=== PATIENT | male | born 1985 | race Caucasian/White ===

== ENCOUNTER 2018-08-25 08:19 | Inpatient (IN) | payer OTHER ==
[2018-08-25 10:31] VITALS: BMI 31.9
--- NOTE | 2018-08-25 12:13 | HP ---
COWS - Scale Resting Pulse: 0= [place] 80 or Below Sweatin= Chills/Flushing Restless Observation: 3= Extraneous Movement Pupil Size: 1= Pupils >than Normal Bone or Joint Aches: 2= Severe Diffuse Aches Runny Nose/ Eye Tearin= Runny Nose/Eyes GI Upset > 30mins: 3= Vomiting/Diarrhea Tremor Observation: 2= Slight Tremor Visible Yawning Observation: 2= >3x During Session Anxiety or Irritability: 2=Irritable/Anxious Goose Flesh Skin: 0=Smooth Skin COWS Score: 18 CIWA Score - Admission Criteria [facility] Guidelines: Admission for Medically Managed Detox: Requires at least one of the followin. CIWA greater than 12 2. Seizures within the past 24 hours 3. Delirium tremens within the past 24 hours 4. Hallucinations within the past 24 hours 5. Acute intervention needed for co occurring medical disorder 6. Acute intervention needed for co occurring psychiatric disorder 7. Severe withdrawal that cannot be handled at a lower level of care (continued vomiting, continued diarrhea, abnormal vital signs) requiring intravenous medication and/or fluids 8. Admission ROS [facility] Chief Complaint: ii am here for detox from heroin,also on xanax prescribed,also cocaine and marijuana Allergies/Adverse Reactions: Allergies Allergy/AdvReac Type Severity Reaction Status Date / Time No Known Allergies Allergy Verified 08/25/18 10:54 History of Present Illness: this 33 years old seeking detox from heroin,xanax prescribed,also using cocaine, marijuana dependence, seeking detox,withdrawal symptom, [facility] completed anxiety and depression on med longest period of sobriety 6 months plan for care home program after detox seizure drug related last 6 months ago Exam Limitations: No Limitations - Ebola screening Have you traveled outside of the country in the last 21 days: No Have you had contact with anyone from an Ebola affected area: No Have you been sick,other than usual withdrawal symptoms: No Do you have a fever: No - Review of Systems Constitutional: Chills, Loss of Appetite, Malaise, Night Sweats, Changes in sleep, Weakness EENT: reports: Tearing, Nose Congestion Respiratory: reports: No Symptoms reported Cardiac: reports: No Symptoms Reported GI: reports: Diarrhea, Nausea, Poor Appetite, Abdominal cramping : reports: No Symptoms Reported Musculoskeletal: reports: Back Pain, Joint Pain, Muscle Pain Integumentary: reports: Dryness Neuro: reports: Headache, Tremors Endocrine: reports: No Symptoms Reported Hematology: reports: No Symptoms Reported Psychiatric: reports: No Sypmtoms Reported, Judgement Intact, Mood/Affect Appropiate, Orientated x3, Anxious, Depressed, other (insomnia) Other Systems: Reviewed and Negative Patient History - Patient Medical History Hx Anemia: No Hx Asthma: No Hx Chronic Obstructive Pulmonary Disease (COPD): No Hx Cancer: No Hx Cardiac Disorders: No Hx Congestive Heart Failure: No Hx Hypertension: No Hx Hypercholesterolemia: No Hx Pacemaker: No HX Cerebrovascular Accident: No Hx Seizures: Yes (6 mths ago drug related) Hx Dementia: No Hx Diabetes: No Hx Gastrointestinal Disorders: No Hx Liver Disease: No Hx Genitourinary Disorders: No Hx Sexually Transmitted Disorders: No Hx Renal Disease (ESRD): No Hx Thyroid Disease: No Hx Human Immunodeficiency Virus (HIV): No (last 2018 negative) Hx Hepatitis C: No Hx Depression: Yes (anxiety) Hx Suicide Attempt: No Hx Bipolar Disorder: No Hx Schizophrenia: No Other Medical History: no suicidal,no homicidal, - Patient Surgical History Past Surgical History: No - PPD History Previous Implant?: Yes Documented Results: Negative w/o proof Implanted On Prior [facility] Admission?: No PPD to be Administered?: Yes - Smoking Cessation Smoking history: Never smoked Have you smoked in the past 12 months: No Aproximately how many cigarettes per day: 0 Hx Chewing Tobacco Use: No - Substance & Tx. History Hx Alcohol Use: No Hx Substance Use: Yes Substance Use Type: Cocaine, Heroin, Marijuana, Tranquilizers Hx Substance Use [facility]: [facility] - Substances Abused Heroin Route: Injection Frequency: Daily Amount used: 6 BAGS Age of first use: 29 Date of Last Use: 08/24/18 Alprazolam (Xanax) Route: Oral Frequency: Daily Amount used: 4mg Age of first use: 31 Date of Last Use: 08/24/18 Cocaine Route: Smoking Frequency: 1-3 times last 30 days Amount used: 30$ Age of first use: 32 Date of Last Use: 08/24/18 Marijuana/Hashish Route: Smoking Frequency: 1-3 times last 30 days Amount used: 1 blunt Age of first use: 19 Date of Last Use: 08/24/18 Family Disease History - Family Disease History Family History: Denies Admission Physical Exam [facility] - Vital Signs Vital Signs: Vital Signs - 24 hr 08/25/18 10:24 Temperature 97.1 F L Pulse Rate 75 Respiratory 20 Rate Blood Pressure 115/76 - Physical General Appearance: Yes: Moderate Distress, Tremorous, Irritable, Anxious HEENTM: Yes: Normal ENT Inspection, DELFINA, Pharynx Normal Respiratory: Yes: Lungs Clear, Normal Breath Sounds, No Respiratory Distress Neck: Yes: Within Normal Limits, Supple, Trachea in good position Breast: Yes: Within Normal Limits Cardiology: Yes: Within Normal Limits, Regular Rhythm, Regular Rate, S1, S2 Abdominal: Yes: Normal Bowel Sounds, Non Tender, Soft Genitourinary: Yes: Within Normal Limits Back: Yes: Muscle Spasm Extremities: Yes: Tremors Neurological: Yes: draw end hand II-XII NML intact, Fully Oriented, Alert, Motor Strength 5/5 Integumentary: Yes: Dry Lymphatic: Yes: Within Normal Limits - Diagnostic (1) Opioid dependence with withdrawal Current Visit: Yes Status: Acute (2) Sedative, hypnotic or anxiolytic abuse, uncomplicated Current Visit: Yes Status: Acute (3) Cocaine abuse Current Visit: Yes Status: Acute (4) Cannabis abuse Current Visit: Yes Status: Acute (5) Insomnia secondary to depression with anxiety Current Visit: Yes Status: Acute Cleared for Admission [facility] - Detox or Rehab [facility] Level of Care: Medically Managed Detox Regimen/Protocol: Methadone [facility] Breath Alcohol Content Breath Alcohol Content: 0 Urine Drug Screen - Results Drug Screen Negative: No Urine Drug Screen Results: THC-Marijuana, MONICA-Cocaine, BZO-Benzodiazepines, OXY- Oxycodone Inpatient Rehab Admission - Rehab Decision to Admit Inpatient rehab admission?: No
[2018-08-25] MEDS ORDERED: cloNIDine HCL 0.1 MG TABLET PO PRN (12:45)
[2018-08-25] MEDS ORDERED: MAGNESIUM CITRATE 300 ML BOTTLE PO PRN (12:53)
[2018-08-25] MEDS ORDERED: MAGNESIUM HYDROX 2400MG/30ML ORAL SUSPENSION 30 ML CUP PO PRN (12:53)
[2018-08-25] MEDS ORDERED: BISMUTH SUBSALICYLATE 262 MG/15 ML BTL PO PRN (12:53)
[2018-08-25] MEDS ORDERED: IBUPROFEN 400 MG TABLET (FP) PO PRN (12:53)
[2018-08-25] MEDS ORDERED: hydrOXYzine PAMOATE 25 MG CAPSULE (FP) PO PRN (12:53)
[2018-08-25] MEDS ORDERED: MAG HYDROX/AL HYDROX/SIMETH 30 ML UNIT-DOSE CUP PO PRN (12:53)
[2018-08-25] MEDS ORDERED: MELATONIN 5 MG TABLETS PO PRN (12:53)
[2018-08-25] MEDS ORDERED: METHOCARBAMOL 500 MG TABLET PO PRN (12:53)
[2018-08-25] MEDS ORDERED: guaiFENesin 200 MG/10 ML 10 ML UNIT-DOSE CUPS PO PRN (12:53)
[2018-08-25] MEDS ORDERED: MENTHOL/PHENOL 1 EACH UD MM PRN (12:53)
[2018-08-25] MEDS ORDERED: P-EPHED 60MG/TRIPROLIDI 2.5MG TABLET PO PRN (12:53)
[2018-08-25] MEDS ORDERED: ACETAMINOPHEN 325 MG TABLET (FP) PO PRN ×2 (12:53)
[2018-08-25] MEDS ORDERED: METHADONE HCL 10 MG TABLET (FOR DETOX USE ONLY) PO ONE ×2 (14:00→23:00)
[2018-08-25] MEDS: clonazePAM 0.5 MG TABLET PO PRN (18:10)
[2018-08-25] MEDS ORDERED: THIAMINE HCL 100 MG TABLET (FP) PO SCH (22:00)
[2018-08-25] MEDS ORDERED: traZODone HCL 100 MG TABLET (FP) PO SCH (22:00)
[2018-08-26] MEDS: clonazePAM 0.5 MG TABLET PO PRN (06:37)
[2018-08-26] MEDS ORDERED: ESCITALOPRAM OXALATE 20 MG TABLET (FP) PO SCH (10:00)
[2018-08-26] MEDS ORDERED: METHADONE HCL 10 MG TABLET (FOR DETOX USE ONLY) PO ONE (10:00)
[2018-08-26] MEDS ORDERED: PRENATAL VITAMINS W/ FOLIC ACID TABLET (FP) PO SCH (10:00)
--- NOTE | 2018-08-26 11:06 | PN ---
[facility] COWS - Scale Resting Pulse: 1= [place] 81-100 Sweatin=Flushed/Facial Moisture Restless Observation: 1= Difficult to Sit Still Pupil Size: 0= Normal to Room Light Bone or Joint Aches: 2= Severe Diffuse Aches Runny Nose/ Eye Tearin= Nasal Congestion GI Upset > 30mins: 0= None Tremor Observation of Outstretched Hands: 2= Slight Tremor Visible Yawning Observation: 2= >3x During Session Anxiety or Irritability: 2=Irritable/Anxious Goose Flesh Skin: 0=Smooth Skin COWS Score: 13 [facility] Progress Note (SOAP) Subjective: agitation sweats shakes I want to see claims correspondence clerk interrupted sleep Objective: 08/26/18 11:05 Vital Signs Temperature 97.1 F L 08/26/18 09:41 Pulse Rate 91 H 08/26/18 09:41 Respiratory Rate 16 08/26/18 09:41 Blood Pressure 121/79 08/26/18 09:41 O2 Sat by Pulse Oximetry (%) labs pending [id number] ambulating no acute distress Assessment: 08/26/18 11:05 withdrawal sx Plan: continue detox increase fluids hep c ordered as per pt request
[2018-08-26] MEDS ORDERED: ALBUTEROL SO4 8 GM HFA INHALER IH PRN (11:25)
--- NOTE | 2018-08-26 11:25 | PN ---
[facility] Progress Note Note: pt was found by nursing support worker during rounds that he was unresponsive, skin dailey/ ashy. rapid response was initiated. Nursing operations staff specialist security /supervisor fur dressing are performing CPR. Narcan x2 doses .04mg IM and nasal given to pt, 911 was called. chest compression were continued. Pts color was back, with jah cheeks. Pt was awake/ alert responding to name. Pt was asked if he know what made him so lethargic but he states he didnt take anything that was not part of the regimen he is taking. Pt was sent by ambulance to nearest hospital for evaluation.
[2018-08-26 11:37] LABS: HEMATOCRIT 48.1 % (35.4-49); HEMOGLOBIN 16.6 GM/dL (11.7-16.9); MCH 31.1 pg (25.7-33.7); MCHC 34.5 g/dl (32.0-35.9); MEAN CELL VOLUME 90.3 fl (80-96); MEAN PLT VOLUME 9.8 fl (7.5-11.1); PLATELET COUNT 177 K/MM3 (134-434); RBC 5.33 M/mm3 (4.00-5.60); RDW 12.9 % (11.9-15.9); WHITE BLOOD COUNT 6.6 K/mm3 (4.0-10.0)
[2018-08-26 11:50] LABS: ALBUMIN 4.2 g/dl (3.4-5.0); ALK PHOS 109 U/L (45-117); ANION GAP 6 MMOL/L (8-16); BILIRUBIN,TOTAL 0.4 mg/dL (0.2-1); BLOOD UREA NITROGEN 11 mg/dL (7-18); CALCIUM 9.2 mg/dL (8.5-10.1); CHLORIDE 102 mmol/L (98-107); CO2 29 mmol/L (21-32); CREATININE 1.1 mg/dL (0.55-1.3); GLUCOSE,RANDOM 63 mg/dL (74-106); POTASSIUM 3.9 mmol/L (3.5-5.1); SGOT/AST 6 U/L (15-37); SGPT/ALT 18 U/L (13-61); SODIUM 137 mmol/L (136-145); TOT PROT 7.6 g/dl (6.4-8.2)
--- NOTE | 2018-08-26 12:03 | EKG ---
Test Reason : Blood Pressure : / mmHG Vent. Rate : 084 BPM Atrial Rate : 084 BPM P-R Int : 140 ms QRS Dur : 092 ms QT Int : 352 ms P-R-T Axes : 038 -02 011 degrees QTc Int : 415 ms NORMAL SINUS RHYTHM NORMAL ECG NO PREVIOUS ECGS AVAILABLE Confirmed by XIN PURVIS, DARRION ([id number]) on 08/26/2018 12:03:21 PM Referred By: Confirmed By:DARRION LAUREN MD
[2018-08-26] MEDS ORDERED: NALOXONE HCL 0.4 MG/ML VIAL IM ONE ×2 (13:00)
[2018-08-26 14:16] VITALS: BP 126/96; PULSE 96; TEMP 98.1
[2018-08-26] MEDS ORDERED: NALOXONE HCL 0.4 MG/ML VIAL IVPUSH ONE (15:44)
[2018-08-27] MEDS ORDERED: METHADONE HCL 10 MG TABLET (FOR DETOX USE ONLY) PO ONE (10:00)
[2018-08-28] MEDS ORDERED: METHADONE HCL 10 MG TABLET (FOR DETOX USE ONLY) PO ONE (10:00)
[2018-08-29] MEDS ORDERED: METHADONE HCL 5 MG TABLET (FOR DETOX USE ONLY) PO ONE (06:00)
== END 2018-08-26 13:30 | disposition short-term general hospital (02) | DRG 773 ==
LOC: YASAS 08:19 → Y6N 13:28
PROVIDERS: ADMIT Surgery; ATTEND Surgery
PROC: HZ2ZZZZ Detoxification Services for Substance Abuse Treatment (ICD-10-PCS; principal; 2018-08-25)
DX: F11.23 Opioid dependence with withdrawal (principal); F13.230 Sedative, hypnotic or anxiolytic dependence with withdrawal, uncomplicated; F14.20 Cocaine dependence, uncomplicated; F12.20 Cannabis dependence, uncomplicated; F51.05 Insomnia due to other mental disorder; F41.8 Other specified anxiety disorders; F32.9 Major depressive disorder, single episode, unspecified; Z86.69 Personal history of other diseases of the nervous system and sense organs
CPT/HCPCS: 36415; 80053; 85027; 86593; 87389; 87522; 93005; 93010

== ENCOUNTER 2018-08-26 13:50 | Inpatient (IN) | payer OTHER ==
[2018-08-26 14:05] VITALS: BMI 28.7
--- NOTE | 2018-08-26 14:27 | PDOC ---
Attending Attestation - HPI HPI: 08/26/18 15:41 The patient is a 33 yo Male with significant past medical history of IV heroin use 10 months cessation with relapse 2 days ago) who presents emergency department from [facility] by EMS after being found unresponsive and cyanotic. The patient was reportedly given Narcan and chest compressions began via use of KIRBY machine. Pt is answering questions appropriately upon arrival. - Physicial Exam PE: 08/26/18 15:40 GENERAL: The patient is in mild distress. HEAD: Normal with no signs of trauma. EYES: PERRLA, EOMI, sclera anicteric, conjunctiva clear. ENT: Ears normal, nares patent, oropharynx clear without exudates. Moist mucous membranes. NECK: Normal range of motion, supple without lymphadenopathy, JVD, or masses. LUNGS: Breath sounds equal, clear to auscultation bilaterally. No wheezes, and no crackles. HEART:(+) tachycardic, Normal rhythm, normal S1 and S2 without murmur, rub or gallop. ABDOMEN: (+) distension and diffuse tenderness. Soft, normoactive bowel sounds. No guarding, no rebound. No masses palpable. EXTREMITIES: Normal range of motion, no edema. No clubbing or cyanosis. No erythema, or tenderness. NEUROLOGICAL: Cranial nerves II through XII grossly intact. Normal speech. No focal neurological deficits. Pupils round and reactive. Answering questions appropriately MUSCULOSKELETAL: Back non-tender to palpation, no CVA tenderness SKIN: (+) multiple track cruz visualized to b/l UE. Warm, Dry, normal turgor, no rashes or lesions noted. <Maddie Jaramillo - Last Filed: 08/26/18 15:41> - Resident Resident Name: Radha Hernández - ED Attending Attestation I have performed the following: I have examined & evaluated the patient, The case was reviewed & discussed with the resident, I agree w/resident's findings & plan, Exceptions are as noted - Medical Decision Making 08/26/18 14:59 Mr Severino is 33 yo Male who presents emergency department from [facility] by EMS. Briefly patient has been in detox now 2 days. He apparently was noted to be unresponsive and cyanotic. EMS called. Patient given Narcan and presumably vitals were not obtained. Chest compressions began via use of KIRBY machine. Since then patient is awake, alert. He reports pain in his abdomen. He's noted to be tachycardic Patient is difficult access. Differential diagnosis includes but is not limited to: Cardiac contusion, DE, substance abuse, intra-abdominal pathology/bleeding Will do: Labs, CT chest abdomen pelvis, urine drug screen IV hydration Re Assess Anticipate admission 08/26/18 16:07 EKG - Afib rate of 140s-160s, axis nml, no st elevation or depression 08/26/18 16:14 Laboratory Tests 08/26/18 08/26/18 15:00 15:00 WBC 14.7 H Hgb 16.0 Hct 47.1 Plt Count 162 BUN 11 Creatinine 1.2 Creatine Kinase 132 Troponin I 0.04 TSH 1.04 Salicylates < 1.7 L Acetaminophen < 2.0 L Bedside US - No pericardial effusion, no wall motion abnormalities CT C/A/P Pending Admit to Dr Rodarte Clinical Impression: new onset Afib in the setting of chest compressions <Ciara Pinto - Last Filed: 08/29/18 12:01> Attestations - Attestations 08/26/18 15:43 Documentation prepared by Maddie Jaramillo, acting as medical billing clerk for Ciara Pinto MD <Maddie Jaramillo - Last Filed: 08/26/18 15:41>
[2018-08-26] MEDS ORDERED: SODIUM CHLORIDE 1,000 ML IV STA (14:29)
[2018-08-26 15:24] LABS: BASO % 0.2 % (0-2.0); EOS % 1.2 % (0-4.5); HEMATOCRIT 47.1 % (35.4-49); LYMPH % 10.5 % (8-40); MCH 31.5 pg (25.7-33.7); MCHC 33.9 g/dl (32.0-35.9); MEAN CELL VOLUME 92.9 fl (80-96); MEAN PLT VOLUME 9.4 fl (7.5-11.1); MONO % 7.5 % (3.8-10.2); NEUT % 80.6 % (42.8-82.8); PLATELET COUNT 162 K/MM3 (134-434); RBC 5.07 M/mm3 (4.00-5.60); RDW 12.9 % (11.9-15.9); WHITE BLOOD COUNT 14.7 K/mm3 (4.0-10.0)
--- NOTE | 2018-08-26 15:44 | PDOC ---
History of Present Illness - General Chief Complaint: Overdose Stated Complaint: Overdose Time Seen by Provider: 08/26/18 14:26 History Source: Patient - History of Present Illness Initial Comments: 08/26/18 15:05 *history obtained by note from [facility] and charge nurse Pt is a 33yo M with PMH of Heroin use, Xanax use, Cocaine, marijuana use BIBA from [facility] after being found unresponsive and cyanotic. Chest compressions were initiated and pt was given Narcan. At presentation pt is alert and oriented x3. Pt does not recall what happened. He states he went to bed and woke up people surrounding him. Says he is on Methadone and Klonopin. Was using IV heroin for 2 years but quit 6 months ago. Pt states he relapsed 2 days ago, used heroin and 6mg Xanax and checked into detox. No history of cardiac problems or arrhythmias. Mainly complaining of nausea, diffuse abdominal pain and chest pain with sob. Collateral information obtained from nursing staff here: nurse at [facility] went to check in on patient at 1pm, found him cyanotic and could not feel a carotid pulse. compressions started. Fire department placed KIRBY. EMS arrived and placed EJ. PT given 0.4mg Narcan x2 and woke up. Per EMS, compressions for 15 minutes. PMH: see hpi PSH: none Allergies: nkda Past History - Past Medical History Allergies/Adverse Reactions: Allergies Allergy/AdvReac Type Severity Reaction Status Date / Time No Known Allergies Allergy Verified 08/25/18 10:54 Home Medications: Ambulatory Orders Escitalopram Oxalate [Lexapro -] 20 mg PO DAILY 08/25/18 traZODone HCL [Trazodone HCl] 100 mg PO HS 08/25/18 Anemia: No Asthma: No Cancer: No Cardiac Disorders: No CVA: No COPD: No CHF: No Dementia: No Diabetes: No GI Disorders: No Disorders: No HTN: No Hypercholesterolemia: No Kidney Stones: No Liver Disease: No Seizures: Yes (6 mths ago drug related) Thyroid Disease: No - Reproductive History Testicular Surgery: No - Suicide/Smoking/Psychosocial Hx Smoking History: Never smoked Have you smoked in the past 12 months: No Number of Cigarettes Smoked Daily: 0 Information on smoking cessation initiated: No Hx Alcohol Use: No Drug/Substance Use Hx: Yes Substance Use Type: Cocaine, Heroin, Marijuana, Tranquilizers Hx Substance Use Treatment: Yes ([facility] 07/28 completed) Review of Systems - Review of Systems Constitutional: No: Chills, Fever HEENTM: No: Eye Pain, Blurred Vision, Double Vision Respiratory: Yes: Shortness of Breath. No: Cough, Hemoptysis Cardiac (ROS): Yes: Chest Pain. No: Lightheadedness, Palpitations, Syncope ABD/GI: Yes: Nausea, Abdominal cramping. No: Constipated, Diarrhea, Vomiting : No: Burning, Dysuria Musculoskeletal: No: Back Pain, Joint Pain, Neck Pain Integumentary: No: Symptoms Reported Neurological: No: Headache, Numbness, Tingling, Tremors *Physical Exam - Vital Signs Last Vital Signs Temp Pulse Resp BP Pulse Ox 98 F 144 H 20 117/81 94 L 08/26/18 14:02 08/26/18 14:02 08/26/18 14:02 08/26/18 14:02 08/26/18 14:02 - Physical Exam General Appearance: Yes: Disheveled, Mild Distress HEENT: positive: EOMI, DELFINA, Normal ENT Inspection Neck: positive: Trachea midline, Supple. negative: Lymphadenopathy (R), Lymphadenopathy (L) Respiratory/Chest: positive: Normal Breath Sounds, Other (poor inspiratory effort). negative: Respiratory Distress, Crackles, Rales, Rhonchi, Wheezing Vascular Pulses: Carotid (R): 2+, Carotid (L): 2+, Dorsalis-Pedis (R): 2+, Doralis-Pedis (L): 2+ Gastrointestinal/Abdominal: positive: Normal Bowel Sounds, Tender (diffuse tendnerness), Soft, Distended. negative: Guarding, Rebound, Hernia, Mass Musculoskeletal: negative: CVA Tenderness Extremity: positive: Normal Capillary Refill, Normal Inspection, Pelvis Stable. negative: Swelling, Calf Tenderness Integumentary: positive: Normal Color, Dry, Warm, Other (old track cruz in arms bilaterally, no splinter hemorrhage) Neurologic: positive: sheather II-XII NML intact, Fully Oriented, Alert, Normal Mood/ Affect, Normal Response, Motor Strength 5/5 Moderate Sedation - Procedure Monitoring Vital Signs: Procedure Monitoring Vital Signs Temperature 98 F 08/26/18 14:02 Pulse Rate 144 H 08/26/18 14:02 Respiratory Rate 20 08/26/18 14:02 Blood Pressure 117/81 08/26/18 14:02 O2 Sat by Pulse Oximetry (%) 94 L 08/26/18 14:02 ED Treatment Course - LABORATORY CBC & Chemistry Diagram: 08/26/18 15:00 08/26/18 15:00 - RADIOLOGY Radiology Studies Ordered: Category Date Time Status ABDOMEN & PELVIS CT WITH CONTR [CT] Stat CT Scan 08/26/18 15:[address] WITH CONTRAST [CT] Stat CT Scan 08/26/18 15:02 Ordered Medical Decision Making - Medical Decision Making 08/26/18 16:06 Pt is a 33yo M with PMH of Heroin use, Xanax use, Cocaine, marijuana use BIBA from [facility] after being found unresponsive and cyanotic. Chest compressions were initiated and pt was given Narcan. At presentation pt is alert and oriented x3. Pt does not recall what happened. He states he went to bed and woke up people surrounding him. Says he is on Methadone and Klonopin. Was using IV heroin for 2 years but quit 6 months ago. Pt states he relapsed 2 days ago, used heroin and 6mg Xanax and checked into detox. No history of cardiac problems or arrhythmias. Mainly complaining of nausea, diffuse abdominal pain and chest pain with sob. Collateral information obtained from nursing staff here: nurse at [facility] went to check in on patient at 1pm, found him cyanotic and could not feel a carotid pulse. compressions started. Fire department placed KIRBY. EMS arrived and placed EJ. PT given 0.4mg Narcan x2 and woke up. Per EMS, compressions for 15 minutes. Vitals: tachycardia, saturating high 80s on RA, in mid to high 90s on NC, bp wnl. RR wnl. Afebrile (rectal 99.1) PE: tired appearing, AOx4, responding to commands. GCS 15. old track cruz on arms bilaterally ddx includes but not limited to pe, cardiac contusion, lung contusion, withdrawal, overdose, arrhythmia, endocarditis -pt started on fluids, difficult IV access. -cbc, cmp, cardiac profile, apap, asa, utox -cta, ctap labs wnl. torp 0.04 (performed within 3 hour window after CPR, could elevate) EKG- afib with rvr. previous ekg from this morning showed nsr. -consulted Dr. Yoo, agrees with ekg read of afib with rvr. start on diltiazem 10mg. CT chest shows atelectasis/scarring of R lower lobe, no pe. no pericardial effusion or pleural effusion. CTAP shows distended stomach with air and gastric contents, diffusely distended colon with fecal matter and air. Aftr diltiazem 10mg, hr decrased to 100s-120s. orderd cardiazem 60mg po. repeat ekg- afib rvr Utox positive for cocaine, bz, opiates, methadone Pt complaining of pain, will give ketamine. pt endorsed to Dr. Rodarte who originally recommended icu however after assessing pt, will admit pt to tele for new onset afib, unresponsiveness and opiate withdrawal 08/26/18 21:50 *DC/Admit/Observation/Transfer Diagnosis at time of Disposition: Opioid dependence with withdrawal, Unresponsive episode Afib Qualifiers: Atrial fibrillation type: unspecified Qualified Code(s): I48.91 - Unspecified atrial fibrillation - Discharge Dispostion Condition at time of disposition: Good Decision to Admit order: Yes - Referrals - Patient Instructions - Post Discharge Activity
[2018-08-26] MEDS ORDERED: LACTATED RINGERS SOLUTION 1000 ML INFUS.BAG IV ONE (15:55)
[2018-08-26 16:03] LABS: ALBUMIN 3.7 g/dl (3.4-5.0); ALK PHOS 94 U/L (45-117); ANION GAP 9 MMOL/L (8-16); BILIRUBIN,TOTAL 0.2 mg/dL (0.2-1); BLOOD UREA NITROGEN 11 mg/dL (7-18); CALCIUM 8.2 mg/dL (8.5-10.1); CHLORIDE 103 mmol/L (98-107); CO2 24 mmol/L (21-32); CREATININE 1.2 mg/dL (0.55-1.3); GLUCOSE,RANDOM 109 mg/dL (74-106); POTASSIUM 3.9 mmol/L (3.5-5.1); SGOT/AST 13 U/L (15-37); SGPT/ALT 22 U/L (13-61); SODIUM 136 mmol/L (136-145)
[2018-08-26 17:18] LABS: PHENCYCLIDINE,URINE NEGATIVE ng/ml (CUTOFF=25); URINE AMPHETAMINES NEGATIVE ng/ml (CUTOFF=500); URINE BARBITURATES NEGATIVE ng/ml (CUTOFF=200)
[2018-08-26] MEDS ORDERED: dilTIAZem HCL 50 MG/10 ML - 10 ML VIAL ONE (17:53)
[2018-08-26] MEDS ORDERED: dilTIAZem HCL 50 MG/10 ML - 10 ML VIAL IVPUSH ONE ×2 (17:54→18:14)
[2018-08-26] MEDS ORDERED: dilTIAZem HCL 60 MG TABLET (FP) PO ONE (18:14)
[2018-08-26] MEDS ORDERED: dilTIAZem HCL 60 MG TABLET (FP) ONE (18:18)
[2018-08-26] MEDS ORDERED: KETAMINE HCL 200 MG/20 ML VIAL IVPUSH ONE ×2 (18:22→18:25)
[2018-08-26] MEDS ORDERED: KETAMINE HCL 200 MG/20 ML VIAL ONE (18:47)
[2018-08-26 19:05] LABS: EPI CELLS 0 /HPF (FEW); HYALINE CASTS 0 /hpf (NEGATIVE); PH,URINE 5.5 (5.0-8.0); URINE APPEARANCE CLEAR; URINE BACTERIA 0 /hpf (NEGATIVE); URINE BILIRUBIN NEGATIVE (<2.0 mg/dL); URINE COLOR YELLOW; URINE GLUCOSE (UA) NEGATIVE (NEGATIVE); URINE KETONE NEGATIVE (NEGATIVE); URINE LEUK ESTERASE NEGATIVE (NEGATIVE); URINE NITRITE NEGATIVE (NEGATIVE); URINE PROTEIN NEGATIVE (NEGATIVE); URINE RBC 0 /hpf (0-3); URINE UROBILINOGEN 0.2 mg/dL (0.2-1.0); URINE WBC 0 /hpf (3-5)
[2018-08-26 19:22] LABS: COCAINE, UR POSITIVE ng/ml (CUTOFF=300); METHADONE, UR POSITIVE ng/ml (CUTOFF=300); OPIATES, URI POSITIVE ng/ml (CUTOFF=300); URINE BENZODIAZEPINES POSITIVE ng/ml (CUTOFF=200)
--- NOTE | 2018-08-26 20:18 | HP ---
Admitting History and Physical - Primary Care Physician PCP: Pauly Rodarte - Admission History of Present Illness: Pt is a 33yo M with PMH of Heroin use, Xanax use, Cocaine, marijuana use BIBA from [facility] after being found unresponsive and cyanotic. Chest compressions were initiated and pt was given Narcan. At presentation pt is alert and oriented x3. Pt does not recall what happened. He states he went to bed and woke up people surrounding him. Says he is on Methadone and Klonopin. Was using IV heroin for 2 years but quit 6 months ago. Pt states he relapsed 2 days ago, used heroin and 6mg Xanax and checked into detox. No history of cardiac problems or arrhythmias. Mainly complaining of nausea, diffuse abdominal pain and chest pain with sob. Collateral information obtained from nursing staff here: nurse at [facility] went to check in on patient at 1pm, found him cyanotic and could not feel a carotid pulse. compressions started. Fire department placed KIRBY. EMS arrived and placed EJ. PT given 0.8mg Narcan and woke up. Per EMS, compressions for 15 minutes. history taken from ER records - Past Medical History Psych: Yes: Depression - Smoking History Smoking history: Never smoked Have you smoked in the past 12 months: No Aproximately how many cigarettes per day: 0 - Alcohol/Substance Use Hx Alcohol Use: No Home Medications - Allergies Allergies/Adverse Reactions: Allergies Allergy/AdvReac Type Severity Reaction Status Date / Time No Known Allergies Allergy Verified 08/25/18 10:54 - Home Medications Home Medications: Ambulatory Orders Escitalopram Oxalate [Lexapro -] 20 mg PO DAILY 08/25/18 traZODone HCL [Trazodone HCl] 100 mg PO HS 08/25/18 Methadone [Dolophine -] 20 mg PO ASDIR 08/27/18 Physical Examination Vital Signs: Vital Signs Temperature 99.1 F 08/26/18 18:05 Pulse Rate 139 H 08/26/18 18:53 Respiratory Rate 18 08/26/18 18:53 Blood Pressure 109/66 08/26/18 18:53 O2 Sat by Pulse Oximetry (%) 98 08/26/18 18:53 Constitutional: Yes: Anxious HENT: Yes: Atraumatic Neck: Yes: Supple Cardiovascular: Yes: Regular Rate and Rhythm Respiratory: Yes: Rhonchi Gastrointestinal: Yes: Normal Bowel Sounds Extremities: Yes: WNL Neurological: Yes: Alert, Oriented Labs: CBC, BMP 08/26/18 15:00 08/26/18 15:00 Imaging - Results Chest X-ray: Report Reviewed Cat Scan: Report Reviewed Problem List - Problems (1) Cannabis abuse Code(s): F12.10 - CANNABIS ABUSE, UNCOMPLICATED (2) Cocaine abuse Code(s): F14.10 - COCAINE ABUSE, UNCOMPLICATED (3) Opioid dependence with withdrawal Code(s): F11.23 - OPIOID DEPENDENCE WITH WITHDRAWAL Assessment/Plan Laboratory Tests 08/26/18 08/26/18 08/26/18 15:00 15:00 16:00 WBC 14.7 H RBC 5.07 Hgb 16.0 Hct 47.1 MCV 92.9 MCH 31.5 MCHC 33.9 RDW 12.9 Plt Count 162 MPV 9.4 Absolute Neuts (auto) 11.8 H Neutrophils % 80.6 Lymphocytes % 10.5 Monocytes % 7.5 Eosinophils % 1.2 Basophils % 0.2 Nucleated RBC % 0 Sodium 136 Potassium 3.9 Chloride 103 Carbon Dioxide 24 Anion Gap 9 BUN 11 Creatinine 1.2 Creat Clearance w eGFR 68.90 Random Glucose 109 H Calcium 8.2 L Total Bilirubin 0.2 AST 13 L ALT 22 Alkaline Phosphatase 94 Creatine Kinase 132 Troponin I 0.04 B-Natriuretic Peptide 11.0 Total Protein 7.0 Albumin 3.7 TSH 1.04 Urine Color Urine Appearance Urine pH Ur Specific Tyner Urine Protein Urine Glucose (UA) Urine Ketones Urine Blood Urine Nitrite Urine Bilirubin Urine Urobilinogen Ur Leukocyte Esterase Urine WBC (Auto) Urine RBC (Auto) Urine Casts (Auto) U Epithel Cells (Auto) Urine Bacteria (Auto) Salicylates < 1.7 L Opiates Screen Positive A* Methadone Screen Positive A* Acetaminophen < 2.0 L Barbiturate Screen Negative Phencyclidine Screen Negative Ur Amphetamines Screen Negative MDMA (Ecstasy) Screen Negative Benzodiazepines Screen Positive A* Cocaine Screen Positive A* U Marijuana (THC) Screen Negative 08/26/18 18:50 WBC RBC Hgb Hct MCV MCH MCHC RDW Plt Count MPV Absolute Neuts (auto) Neutrophils % Lymphocytes % Monocytes % Eosinophils % Basophils % Nucleated RBC % Sodium Potassium Chloride Carbon Dioxide Anion Gap BUN Creatinine Creat Clearance w eGFR Random Glucose Calcium Total Bilirubin AST ALT Alkaline Phosphatase Creatine Kinase Troponin I B-Natriuretic Peptide Total Protein Albumin TSH Urine Color Yellow Urine Appearance Clear Urine pH 5.5 Ur Specific Tyner 1.019 Urine Protein Negative Urine Glucose (UA) Negative Urine Ketones Negative Urine Blood Negative Urine Nitrite Negative Urine Bilirubin Negative Urine Urobilinogen 0.2 Ur Leukocyte Esterase Negative Urine WBC (Auto) 0 Urine RBC (Auto) 0 Urine Casts (Auto) 0 U Epithel Cells (Auto) 0 Urine Bacteria (Auto) 0 Salicylates Opiates Screen Methadone Screen Acetaminophen Barbiturate Screen Phencyclidine Screen Ur Amphetamines Screen MDMA (Ecstasy) Screen Benzodiazepines Screen Cocaine Screen U Marijuana (THC) Screen Active Medications Generic Name Dose Route Start Last Admin Trade Name Freq PRN Reason Stop Dose Admin Sodium Chloride 1,000 mls @ 125 mls/hr 08/26/18 14:29 08/26/18 15:16 Normal Saline - IV 08/26/18 22:28 125 mls/hr ASDIR STA Administration Active Medications Generic Name Dose Route Start Last Admin Trade Name Freq PRN Reason Stop Dose Admin Acetaminophen 650 mg 08/26/18 20:23 08/27/18 08:26 Tylenol - PO 650 mg Q6H PRN Administration FEVER Aspirin 81 mg 08/27/18 16:30 08/27/18 17:27 Ecotrin - PO 81 mg DAILY SHANEKA Administration Diltiazem HCl 120 mg 08/27/18 16:30 08/27/18 17:27 Cardizem Cd - PO 120 mg DAILY SHANEKA Administration Escitalopram Oxalate 20 mg 08/27/18 19:00 Lexapro - PO DAILY SHANEKA Heparin Sodium (Porcine) 5,000 unit 08/26/18 22:00 08/27/18 09:39 Heparin - SQ 5,000 unit BID SHANEKA Administration Vancomycin HCl 1,250 mg/ 250 mls @ 166.667 mls/hr 08/27/18 17:00 08/27/18 17: 27 Dextrose IVPB 166.667 mls/hr Q24H SHANEKA Administration Protocol Piperacillin Sod/Tazobactam 50 mls @ 100 mls/hr 08/27/18 18:00 Sod 3.375 gm/ Dextrose IVPB Q8H-IV SHANEKA Protocol Methadone HCl 20 mg 08/27/18 16:15 Dolophine - PO DAILY SHANEKA Trazodone HCl 100 mg 08/27/18 22:00 Desyrel - PO HS SHANEKA
[2018-08-26] MEDS: HEPARIN NA (PORCINE) 5,000 UNITS/ML 1ML VIAL SQ SCH (22:45)
[2018-08-27] MEDS ORDERED: ACETAMINOPHEN 325 MG TABLET (FP) ONE (08:12)
[2018-08-27] MEDS: ACETAMINOPHEN 325 MG TABLET (FP) PO PRN (08:26)
[2018-08-27] MEDS: HEPARIN NA (PORCINE) 5,000 UNITS/ML 1ML VIAL SQ SCH ×2 (09:39→22:02)
--- NOTE | 2018-08-27 11:01 | EKG ---
Test Reason : Blood Pressure : / mmHG Vent. Rate : 148 BPM Atrial Rate : 166 BPM P-R Int : 000 ms QRS Dur : 086 ms QT Int : 312 ms P-R-T Axes : 000 017 019 degrees QTc Int : 489 ms ATRIAL FIBRILLATION WITH RAPID VENTRICULAR RESPONSE ABNORMAL ECG WHEN COMPARED WITH ECG OF 26-AUG-2018 10:22, ATRIAL FIBRILLATION HAS REPLACED SINUS RHYTHM VENT. RATE HAS INCREASED BY 64 BPM Confirmed by KIKI PURVIS, HARRISON ([id number]) on 08/27/2018 11:01:11 AM Referred By: Confirmed By:HARRISON SWANSON MD
--- NOTE | 2018-08-27 15:50 | EKG ---
Test Reason : Blood Pressure : / mmHG Vent. Rate : 113 BPM Atrial Rate : 105 BPM P-R Int : 000 ms QRS Dur : 080 ms QT Int : 264 ms P-R-T Axes : 000 036 018 degrees QTc Int : 362 ms ATRIAL FIBRILLATION WITH RAPID VENTRICULAR RESPONSE ABNORMAL ECG WHEN COMPARED WITH ECG OF 26-AUG-2018 14:13, NO SIGNIFICANT CHANGE WAS FOUND Confirmed by HARRISON SWANSON MD ([id number]) on 08/27/2018 3:49:56 PM Referred By: Confirmed By:HARRISON SWANSON MD
--- NOTE | 2018-08-27 16:03 | PN ---
Progress Note, Physician - Current Medication List Current Medications: Active Medications Acetaminophen (Tylenol -) 650 mg PO Q6H PRN PRN Reason: FEVER Last Admin: 08/27/18 08:26 Dose: 650 mg Heparin Sodium (Porcine) (Heparin -) 5,000 unit SQ BID SHANEKA Last Admin: 08/27/18 09:39 Dose: 5,000 unit - Objective Vital Signs: Vital Signs Temperature 98 F 08/27/18 09:58 Pulse Rate 127 H 08/27/18 08:09 Respiratory Rate 15 08/27/18 08:09 Blood Pressure 123/92 08/27/18 08:09 O2 Sat by Pulse Oximetry (%) 99 08/27/18 08:09 Constitutional: Yes: No Distress HENT: Yes: Atraumatic Neck: Yes: Supple Cardiovascular: Yes: Regular Rate and Rhythm Respiratory: Yes: CTA Bilaterally Gastrointestinal: Yes: Normal Bowel Sounds Extremities: Yes: WNL Edema: No Peripheral Pulses WNL: Yes Neurological: Yes: Alert, Oriented Labs: CBC, BMP 08/26/18 15:00 08/26/18 15:00 Problem List - Problems (1) Cannabis abuse Code(s): F12.10 - CANNABIS ABUSE, UNCOMPLICATED (2) Cocaine abuse Code(s): F14.10 - COCAINE ABUSE, UNCOMPLICATED (3) Opioid dependence with withdrawal Assessment/Plan: on methadone Code(s): F11.23 - OPIOID DEPENDENCE WITH WITHDRAWAL (4) Afib Assessment/Plan: on cardizem cardiology on board Code(s): I48.91 - UNSPECIFIED ATRIAL FIBRILLATION Qualifiers: Atrial fibrillation type: unspecified Qualified Code(s): I48.91 - Unspecified atrial fibrillation
[2018-08-27] MEDS ORDERED: METHADONE HCL 10 MG TABLET PO SCH (16:15)
--- NOTE | 2018-08-27 16:16 | CON.CARD ---
Consult Consult Specialty:: cardiology Referred by:: ER Reason for Consultation:: afib with rvr - History of Present Illness Chief Complaint: unresponsive from rehab requiring cpr and narcan History of Present Illness: 33 year old man with pmh polysubstance abuse, heroin, cocaine, marijuana, xanax found unresponsive at [facility] rehab yesterday cpr was started and pt given narcan with recovery of mental status to baseline in ER. in ER pt found to be in newly diagnosed Afib with RVR. pt seen and examined today, walking around ER in [facility]. states he is withdrawing and needs his medications. denies any cardiac history. denies having afib in the past. does note that for the past several weeks he has been noticing more fatigue with exertion. but denies any chest pain, sob, palpitations, lightheadedness, dizziness, syncope, near syncope, pnd, orthopnea, or le edema. currently reports MSK chest pain from CPR. no other symptoms currently. - History Source History Provided By: Patient, Medical Record Limitations to Obtaining History: No Limitations - Past Medical History Psych: Yes: Addictions - Alcohol/Substance Use Hx Alcohol Use: No - Smoking History Smoking history: Never smoked Have you smoked in the past 12 months: No Aproximately how many cigarettes per day: 0 - Social History Place of : [facility] History of Recent Travel: No Home Medications - Allergies Allergies/Adverse Reactions: Allergies Allergy/AdvReac Type Severity Reaction Status Date / Time No Known Allergies Allergy Verified 08/25/18 10:54 - Home Medications Home Medications: Ambulatory Orders Escitalopram Oxalate [Lexapro -] 20 mg PO DAILY 08/25/18 traZODone HCL [Trazodone HCl] 100 mg PO HS 08/25/18 Methadone [Dolophine -] 20 mg PO ASDIR 08/27/18 Family Disease History - Family Disease History Family History: Denies Review of Systems - Review of Systems Constitutional: reports: Malaise. denies: No Symptoms, Chills, Diaphoresis, Fever, Lethargy, Loss of Appetite, Night Sweats, Unintentional Wgt. Loss, Weakness, Other Eyes: denies: No Symptoms, Blind Spots, Blurred Vision, Double Vision, Eye Pain , Floaters, Photophobia, Recent Change in Vision, Other HENT: denies: No Symptoms, Difficult Swallowing, Ear Discharge, Ear Pain, Epistaxis, Gingival Bleeding, Hearing Loss, Mouth Swelling, Nasal Congestion, Ocular Prosthesis, Throat Pain, Toothache, Ringing in Ears, Other Neck: denies: No Symptoms, Decreased ROM, Lumps, Pain on Movement, Stiffness, Swollen Glands, Tenderness, Other Cardiovascular: denies: No Symptoms, Chest Pain, Edema, Palpitations, Shortness of Breath, Other Respiratory: denies: No Symptoms, Cough, Exercise Intolerance, Hemoptysis, Orthopnea, PND, Snoring, SOB, SOB on Exertion, Wheezing, Other Gastrointestinal: denies: No Symptoms, Abdominal Pain, Bloating, Constipation, Diarrhea, Dysphagia, Indigestion, Melena, Nausea, Rectal Bleeding, Vomiting, Vomiting Blood, Other Genitourinary: denies: No Symptoms, Burning, Discharge, Dysuria, Flank Pain, Frequency, Hematuria, Incontinence, Lesions, Menses, Pain, Testicular Mass, Testicular Pain, Testicular Swelling, Urgency, Vaginal Bleeding, Other Breasts: denies: No Symptoms Reported, See HPI, Breast Implants, Discharge from Nipple, Lumps, Pain, Skin Changes, Other Musculoskeletal: denies: No Symptoms, Back Pain, Crepitus, Decreased ROM, Extremity Pain, Joint Pain, Joint Swelling, Muscle Pain, Muscle Cramps, Muscle Weakness, Other Integumentary: denies: No Symptoms, Blister, Bruising, Change in Color, Eczema, Erythema, Incision, Lesions, Lump, Pallor, Pruritis, Rash, Wound, Other Neurological: denies: No Symptoms, Change in LOC, Change in Speech, Confusion, Dizziness, Headache, Incoordination, Numbness, Parasthesia, Pre-Existing Deficit , Seizure, Syncope, Tremors, Unsteady Gait, Weakness, Other Endocrine: denies: No Symptoms, Excessive Sweating, Flushing, Increased Hunger, Increased Thirst, Intolerance to Cold, Intolerance to Heat, Unexplained Weight Gain, Unexplained Weight Loss, Other Hematology/Lymphatic: denies: No Symptoms, Easily Bruised, Excessive Bleeding, Swollen Glands, Other Psychiatric: denies: No Symptoms, Altered Sleep Pattern, Anxiety, Depression, Hallucinations, Panic, Paranoia, Suicidal, Other Vital Signs: Vital Signs Temperature 98 F 08/27/18 09:58 Pulse Rate 127 H 08/27/18 08:09 Respiratory Rate 15 08/27/18 08:09 Blood Pressure 123/92 08/27/18 08:09 O2 Sat by Pulse Oximetry (%) 99 08/27/18 08:09 Constitutional: Yes: No Distress, Calm Eyes: Yes: Conjunctiva Clear, EOM Intact HENT: Yes: Atraumatic, Normocephalic Neck: Yes: Supple, Trachea Midline Respiratory: Yes: Regular, CTA Bilaterally. No: Rales, Rhonchi, SOB, Wheezes Gastrointestinal: Yes: Normal Bowel Sounds, Soft. No: Distention, Tenderness Cardiovascular: Yes: Pulse Irregular. No: Regular Rate and Rhythm, Bradycardia , Tachycardia, Gallop, Rub, Varicosities JVD: No Carotid Bruit: No PMI: Non-Displaced Heart Sounds: Yes: S1, S2. No: Split S2, S3, S4, Clicks, Gallop, Rub, Bruit Murmur: No: Systolic Murmur, Diastolic Murmur Extremities: Yes: WNL Edema: No Peripheral Pulses WNL: Yes Neurological: Yes: Alert, Oriented Psychiatric: Yes: Alert, Oriented - Other Data Labs, Other Data: CBC, BMP 08/26/18 15:00 08/26/18 15:00 ekg 08/27/18 Imaging - Results Chest X-ray: Report Reviewed, Image Reviewed Assessment/Plan 33 year old man with pmh polysubstance abuse, heroin, cocaine, marijuana, xanax found unresponsive at [facility] rehab yesterday cpr was started and pt given narcan with recovery of mental status to baseline in ER. in ER pt found to be in newly diagnosed Afib with RVR. currently walking around ER in [facility]. states he is withdrawing and needs his medications. denies any cardiac history. denies having afib in the past. does note that for the past several weeks he has been noticing more fatigue with exertion. but denies any chest pain, sob, palpitations, lightheadedness, dizziness, syncope, near syncope, pnd, orthopnea, or le edema. currently reports MSK chest pain from CPR. no other symptoms currently. Afib with RVR-newly diagnosed, paroxsymal -initial ekg was sinus -ekg 08/27/18 showed afib with RVR -pt not currently on tele -on exam still in afib HR currently adequate but recorded HR's with vital signs are elevated -also noted to have fever this am and pt reports feeling that he is withdrawing from his drugs -CHADS score 0 does not require full AC -can start ASA 81mg daily -will start Diltiazem CD 120mg daily for HR control -repeat EKG -drug withdrawal treatment and fever treatment as these will also increase HR -recommend outpatient fup for further management of afib including further event monitoring
--- NOTE | 2018-08-27 16:21 | CON.ID ---
Consult Consult Specialty:: infectious diseases Referred by:: Reason for Consultation:: drug abuse,resp failure cynatoic - History of Present Illness Chief Complaint: unresposive History of Present Illness: 33yo M with PMH of Heroin use, Xanax use, Cocaine, marijuana use BIBA from [facility] after being found unresponsive and cyanotic. Chest compressions were initiated and pt was given Narcan. At presentation pt is alert and oriented x3. Pt does not recall what happened. He states he went to bed and woke up people surrounding him. Says he is on Methadone and Klonopin. Was using IV heroin for 2 years but quit 6 months ago. Pt states he relapsed 2 days ago, used heroin and 6mg Xanax and checked into detox. No history of cardiac problems or arrhythmias. Mainly complaining of nausea, diffuse abdominal pain and chest pain with sob. Collateral information obtained from nursing staff here: nurse at [facility] went to check in on patient at 1pm, found him cyanotic and could not feel a carotid pulse. compressions started. Fire department placed KIRBY. EMS arrived and placed EJ. PT given 0.8mg Narcan and woke up. Per EMS, compressions for 15 minutes. the above was his history patient currently comfortable and awake and alert - History Source History Provided By: Patient Limitations to Obtaining History: No Limitations - Alcohol/Substance Use Hx Alcohol Use: No - Smoking History Smoking history: Never smoked Have you smoked in the past 12 months: No Aproximately how many cigarettes per day: 0 Home Medications - Allergies Allergies/Adverse Reactions: Allergies Allergy/AdvReac Type Severity Reaction Status Date / Time No Known Allergies Allergy Verified 08/25/18 10:54 - Home Medications Home Medications: Ambulatory Orders Escitalopram Oxalate [Lexapro -] 20 mg PO DAILY 08/25/18 traZODone HCL [Trazodone HCl] 100 mg PO HS 08/25/18 Methadone [Dolophine -] 20 mg PO ASDIR 08/27/18 Review of Systems - Review of Systems Constitutional: reports: No Symptoms Eyes: reports: No Symptoms HENT: reports: No Symptoms Neck: reports: No Symptoms Cardiovascular: reports: No Symptoms Respiratory: reports: No Symptoms Gastrointestinal: reports: No Symptoms Genitourinary: reports: No Symptoms Musculoskeletal: reports: No Symptoms Integumentary: reports: Lesions, Wound, Other Neurological: reports: No Symptoms Endocrine: reports: No Symptoms Hematology/Lymphatic: reports: No Symptoms Psychiatric: reports: No Symptoms Physical Exam Vital Signs: Vital Signs Temperature 98 F 08/27/18 09:58 Pulse Rate 127 H 08/27/18 08:09 Respiratory Rate 15 08/27/18 08:09 Blood Pressure 123/92 08/27/18 08:09 O2 Sat by Pulse Oximetry (%) 99 08/27/18 08:09 Constitutional: Yes: No Distress, Calm Cardiovascular: Yes: Regular Rate and Rhythm Respiratory: Yes: Regular, CTA Bilaterally Gastrointestinal: Yes: Normal Bowel Sounds, Soft Musculoskeletal: Yes: WNL Extremities: Yes: Erythema, Other Wound/Incision: Yes: Other Neurological: Yes: Alert, Oriented Psychiatric: Yes: Alert, Oriented Labs: CBC, BMP 08/26/18 15:00 08/26/18 15:00 Imaging - Results Chest X-ray: Report Reviewed, Image Reviewed Cat Scan: Report Reviewed, Image Reviewed Assessment/Plan Problem List - Problems (1) Cannabis abuse Code(s): F12.10 - CANNABIS ABUSE, UNCOMPLICATED (2) Cocaine abuse Code(s): F14.10 - COCAINE ABUSE, UNCOMPLICATED (3) Opioid dependence with withdrawal Code(s): F11.23 - OPIOID DEPENDENCE WITH WITHDRAWAL 4)ams plan will start patient on abx blood cx ordered
[2018-08-27] MEDS ORDERED: ASPIRIN COATED 81 MG TABLET.EC ONE (17:17)
[2018-08-27] MEDS ORDERED: dilTIAZem HCL 60 MG TABLET (FP) ONE (17:18)
[2018-08-27] MEDS: ASPIRIN COATED 81 MG TABLET.EC PO SCH (17:27)
[2018-08-27] MEDS: VANCOMYCIN HCL 1,250 MG in DEXTROSE 5%-WATER - 250 ML IVPB SCH (17:27)
[2018-08-27] MEDS ORDERED: METHADONE HCL 10 MG TABLET PO ONE (19:15)
[2018-08-27] MEDS ORDERED: DEXTROSE 5%-WATER - 50 ML IVPB ONE (20:22)
[2018-08-27] MEDS ORDERED: PIPERACILLIN/TAZOBACTAM 3.375 GM VIAL IVPB ONE (20:22)
[2018-08-27] MEDS: ESCITALOPRAM OXALATE 20 MG TABLET (FP) PO SCH (20:25)
[2018-08-27] MEDS: PIPERACILLIN/TAZOB 3.375 GM 3.375 GM in DEXTROSE 5%-WATER - 50 ML IVPB SCH (20:25)
[2018-08-27] MEDS: traZODone HCL 50 MG TABLET (FP) PO SCH (22:02)
[2018-08-28] MEDS ORDERED: PIPERACILLIN/TAZOBACTAM 3.375 GM VIAL IVPB ONE ×3 (01:16→17:22)
[2018-08-28] MEDS ORDERED: DEXTROSE 5%-WATER - 50 ML IVPB ONE ×3 (01:16→17:22)
[2018-08-28] MEDS: PIPERACILLIN/TAZOB 3.375 GM 3.375 GM in DEXTROSE 5%-WATER - 50 ML IVPB SCH ×3 (01:44→17:25)
[2018-08-28] MEDS ORDERED: METHADONE HCL 10 MG TABLET PO ONE (09:15)
[2018-08-28] MEDS: ASPIRIN COATED 81 MG TABLET.EC PO SCH (11:30)
[2018-08-28] MEDS: ESCITALOPRAM OXALATE 20 MG TABLET (FP) PO SCH (11:30)
[2018-08-28] MEDS: HEPARIN NA (PORCINE) 5,000 UNITS/ML 1ML VIAL SQ SCH ×2 (11:31→21:42)
--- NOTE | 2018-08-28 14:13 | PN ---
Progress Note, Physician History of Present Illness: patient stable doing well no issues blood cx awaited - Current Medication List Current Medications: Active Medications Acetaminophen (Tylenol -) 650 mg PO Q6H PRN PRN Reason: FEVER Last Admin: 08/27/18 08:26 Dose: 650 mg Aspirin (Ecotrin -) 81 mg PO DAILY [facility] Last Admin: 08/28/18 11:30 Dose: 81 mg Diltiazem HCl (Cardizem Cd -) 120 mg PO DAILY [facility] Last Admin: 08/28/18 11:34 Dose: Not Given Escitalopram Oxalate (Lexapro -) 20 mg PO DAILY [facility] Last Admin: 08/28/18 11:30 Dose: 20 mg Heparin Sodium (Porcine) (Heparin -) 5,000 unit SQ BID [facility] Last Admin: 08/28/18 11:31 Dose: Not Given Vancomycin HCl 1,250 mg/ (Dextrose) 250 mls @ 166.667 mls/hr IVPB Q24H [facility]; Protocol Last Admin: 08/27/18 17:27 Dose: 166.667 mls/hr Piperacillin Sod/Tazobactam (Sod 3.375 gm/ Dextrose) 50 mls @ 100 mls/hr IVPB Q8H-IV [facility]; Protocol Last Admin: 08/28/18 11:32 Dose: 100 mls/hr Methadone HCl (Dolophine -) 5 mg PO ONCE ONE Stop: 08/29/18 10:01 Trazodone HCl (Desyrel -) 100 mg PO HS [facility] Last Admin: 08/27/18 22:02 Dose: 100 mg - Objective Vital Signs: Vital Signs Temperature 98.3 F 08/28/18 06:20 Pulse Rate 82 08/28/18 06:20 Respiratory Rate 18 08/28/18 06:20 Blood Pressure 114/86 08/28/18 06:20 O2 Sat by Pulse Oximetry (%) 95 08/27/18 21:00 Constitutional: Yes: No Distress, Calm Cardiovascular: Yes: Regular Rate and Rhythm Respiratory: Yes: Regular, CTA Bilaterally Gastrointestinal: Yes: Normal Bowel Sounds, Soft Musculoskeletal: Yes: WNL Extremities: Yes: Other (multiple needle cruz on the ext) Neurological: Yes: Alert, Oriented Labs: CBC, BMP 08/26/18 15:00 08/26/18 15:00 Assessment/Plan Problem List - Problems (1) Cannabis abuse Code(s): F12.10 - CANNABIS ABUSE, UNCOMPLICATED (2) Cocaine abuse Code(s): F14.10 - COCAINE ABUSE, UNCOMPLICATED (3) Opioid dependence with withdrawal Code(s): F11.23 - OPIOID DEPENDENCE WITH WITHDRAWAL 4)ams 5 leukocytosis plan continue abx if the blood cx are negative will stop abx rest ct current mgmt patient stable
--- NOTE | 2018-08-28 16:07 | PN ---
Progress Note, Physician - Current Medication List Current Medications: Active Medications Acetaminophen (Tylenol -) 650 mg PO Q6H PRN PRN Reason: FEVER Last Admin: 08/27/18 08:26 Dose: 650 mg Aspirin (Ecotrin -) [address] [facility] Last Admin: 08/28/18 11:30 Dose: 81 mg Diltiazem HCl (Cardizem Cd -) [address] [facility] Last Admin: 08/28/18 11:34 Dose: Not Given Escitalopram Oxalate (Lexapro -) [address] [facility] Last Admin: 08/28/18 11:30 Dose: 20 mg Heparin Sodium (Porcine) (Heparin -) 5,[address] [facility] Last Admin: 08/28/18 11:31 Dose: Not Given Vancomycin HCl 1,250 mg/ (Dextrose) 250 mls @ 166.667 mls/hr IVPB Q24H [facility]; Protocol Last Admin: 08/27/18 17:27 Dose: 166.667 mls/hr Piperacillin Sod/Tazobactam (Sod 3.375 gm/ Dextrose) 50 mls @ 100 mls/hr IVPB Q8H-IV [facility]; Protocol Last Admin: 08/28/18 11:32 Dose: 100 mls/hr Methadone HCl (Dolophine -) 5 mg PO ONCE ONE Stop: 08/29/18 10:01 Trazodone HCl (Desyrel -) [address] [facility] Last Admin: 08/27/18 22:02 Dose: 100 mg - Objective Vital Signs: Vital Signs Temperature 98 F 08/28/18 14:15 Pulse Rate 85 08/28/18 14:15 Respiratory Rate 18 08/28/18 14:15 Blood Pressure 115/84 08/28/18 14:15 O2 Sat by Pulse Oximetry (%) 95 08/28/18 09:02 Labs: CBC, BMP 08/26/18 15:00 08/26/18 15:00 Assessment/Plan 33 year old man with pmh polysubstance abuse, heroin, cocaine, marijuana, xanax found unresponsive at [facility] rehab yesterday cpr was started and pt given narcan with recovery of mental status to baseline in ER. in ER pt found to be in newly diagnosed Afib with RVR. currently walking around ER in [facility]. states he is withdrawing and needs his medications. denies any cardiac history. denies having afib in the past. does note that for the past several weeks he has been noticing more fatigue with exertion. but denies any chest pain, sob, palpitations, lightheadedness, dizziness, syncope, near syncope, pnd, orthopnea, or le edema. currently reports MSK chest pain from CPR. no other symptoms currently. Afib with RVR-newly diagnosed, paroxsymal -pt back in NSR since this am and currently NSR on exam (not currently on tele) -check EKG to document NSR -initial ekg was sinus -ekg 08/27/18 showed afib with RVR -pt not currently on tele -CHADS score 0 does not require full AC -cont ASA 81mg daily -cont Diltiazem CD 120mg daily for suppression of AFib until outpatient re- evaluation when can consider to stop it -drug withdrawal treatment and fever treatment as these will also precipitate AFib episodes -recommend outpatient fup for further management of afib including further event monitoring No additional inpatient cardiac work up needed at this time. Can dc tele. Please call with any additional questions.
[2018-08-28] MEDS: VANCOMYCIN HCL 1,250 MG in DEXTROSE 5%-WATER - 250 ML IVPB SCH (17:25)
--- NOTE | 2018-08-28 17:49 | PN ---
Progress Note, Physician - Current Medication List Current Medications: Active Medications Acetaminophen (Tylenol -) 650 mg PO Q6H PRN PRN Reason: FEVER Last Admin: 08/27/18 08:26 Dose: 650 mg Aspirin (Ecotrin -) 81 mg PO DAILY [facility] Last Admin: 08/28/18 11:30 Dose: 81 mg Diltiazem HCl (Cardizem Cd -) 120 mg PO DAILY [facility] Last Admin: 08/28/18 11:34 Dose: Not Given Escitalopram Oxalate (Lexapro -) 20 mg PO DAILY [facility] Last Admin: 08/28/18 11:30 Dose: 20 mg Heparin Sodium (Porcine) (Heparin -) 5,000 unit SQ BID [facility] Last Admin: 08/28/18 11:31 Dose: Not Given Vancomycin HCl 1,250 mg/ (Dextrose) 250 mls @ 166.667 mls/hr IVPB Q24H [facility]; Protocol Last Admin: 08/28/18 17:25 Dose: 166.667 mls/hr Piperacillin Sod/Tazobactam (Sod 3.375 gm/ Dextrose) 50 mls @ 100 mls/hr IVPB Q8H-IV [facility]; Protocol Last Admin: 08/28/18 17:25 Dose: 100 mls/hr Methadone HCl (Dolophine -) 5 mg PO ONCE ONE Stop: 08/29/18 10:01 Trazodone HCl (Desyrel -) 100 mg PO HS [facility] Last Admin: 08/27/18 22:02 Dose: 100 mg - Objective Vital Signs: Vital Signs Temperature 98 F 08/28/18 17:09 Pulse Rate 77 08/28/18 17:09 Respiratory Rate 18 08/28/18 17:09 Blood Pressure 134/83 08/28/18 17:09 O2 Sat by Pulse Oximetry (%) 95 08/28/18 09:02 Constitutional: Yes: No Distress HENT: Yes: Atraumatic Neck: Yes: Supple Cardiovascular: Yes: Regular Rate and Rhythm Respiratory: Yes: CTA Bilaterally Gastrointestinal: Yes: Normal Bowel Sounds Extremities: Yes: WNL Edema: No Peripheral Pulses WNL: Yes Neurological: Yes: Alert, Oriented Labs: CBC, BMP 08/26/18 15:00 08/26/18 15:00 Problem List - Problems (1) Cannabis abuse Code(s): F12.10 - CANNABIS ABUSE, UNCOMPLICATED (2) Cocaine abuse Code(s): F14.10 - COCAINE ABUSE, UNCOMPLICATED (3) Opioid dependence with withdrawal Assessment/Plan: on methadone Code(s): F11.23 - OPIOID DEPENDENCE WITH WITHDRAWAL (4) Afib Assessment/Plan: on cardizem cardiology on board Code(s): I48.91 - UNSPECIFIED ATRIAL FIBRILLATION Qualifiers: Atrial fibrillation type: unspecified Qualified Code(s): I48.91 - Unspecified atrial fibrillation
--- NOTE | 2018-08-28 18:30 | DS ---
Physical Examination Vital Signs: Vital Signs Temperature 98 F 08/28/18 17:09 Pulse Rate 77 08/28/18 17:09 Respiratory Rate 18 08/28/18 17:09 Blood Pressure 134/83 08/28/18 17:09 O2 Sat by Pulse Oximetry (%) 95 08/28/18 09:02 Constitutional: Yes: No Distress HENT: Yes: Atraumatic Neck: Yes: Supple Cardiovascular: Yes: Regular Rate and Rhythm Respiratory: Yes: CTA Bilaterally Gastrointestinal: Yes: Normal Bowel Sounds Extremities: Yes: WNL Edema: No Neurological: Yes: Alert, Oriented Labs: CBC, BMP 08/26/18 15:00 08/26/18 15:00 Discharge Summary Reason For Visit: UNRESPONSIVENESS OPIOID DEPENDENCE WITH WITHDRAWAL Current Active Problems Afib (Acute) Opioid dependence with withdrawal (Acute) Unresponsive episode (Acute) Condition: Good - Instructions - Home Medications Comprehensive Discharge Medication List: Ambulatory Orders Escitalopram Oxalate [Lexapro -] 20 mg PO DAILY 08/25/18 traZODone HCL [Trazodone HCl] 100 mg PO HS 08/25/18 Methadone [Dolophine -] 20 mg PO ASDIR 08/27/18 Diltiazem Cd [Cardizem Cd -] 120 mg PO DAILY #30 cap.cd.24h 08/28/18 [facility] d/w dr pelaez
--- NOTE | 2018-08-28 18:38 | PN ---
"S Progress Note (SOAP) Subjective: 33 y.o. male w/ opioid dependence , transferred from [facility] after episode of unresponsiveness , pt reported he used opioid via inhalation prior to going to sleep in the morning of 08/26 , found by staff unresponsive and cyanotic , Narcan administered , CPR by EMS, brought to ED , found to be in A -fib current meds as below. Currently reports anxiety , intermittent chest discomfort. Blood cultures pending . Active Medications Acetaminophen (Tylenol -) 650 mg PO Q6H PRN PRN Reason: FEVER Last Admin: 08/27/18 08:26 Dose: 650 mg Aspirin (Ecotrin -) 81 mg PO DAILY [facility] Last Admin: 08/28/18 11:30 Dose: 81 mg Diltiazem HCl (Cardizem Cd -) 120 mg PO DAILY [facility] Last Admin: 08/28/18 11:34 Dose: Not Given Escitalopram Oxalate (Lexapro -) 20 mg PO DAILY [facility] Last Admin: 08/28/18 11:30 Dose: 20 mg Heparin Sodium (Porcine) (Heparin -) 5,000 unit SQ BID [facility] Last Admin: 08/28/18 11:31 Dose: Not Given Vancomycin HCl 1,250 mg/ (Dextrose) 250 mls @ 166.667 mls/hr IVPB Q24H [facility]; Protocol Last Admin: 08/28/18 17:25 Dose: 166.667 mls/hr Piperacillin Sod/Tazobactam (Sod 3.375 gm/ Dextrose) 50 mls @ 100 mls/hr IVPB Q8H-IV [facility]; Protocol Last Admin: 08/28/18 17:25 Dose: 100 mls/hr Methadone HCl (Dolophine -) 5 mg PO ONCE ONE Stop: 08/29/18 10:01 Trazodone HCl (Desyrel -) 100 mg PO HS [facility] Last Admin: 08/27/18 22:02 Dose: 100 mg Search Terms: anju severino, 1985 Search Date: 08/28/2018 07:02:23 PM The Drug Utilization Report below displays all of the controlled substance prescriptions, if any, that your patient has filled in the last twelve months. The information displayed on this report is compiled from pharmacy submissions to the Department, and accurately reflects the information as submitted by the pharmacies. This report was requested by: Bhavana Palomino | Reference #: [id number] Others' Prescriptions Patient Name: Anju Severino Date: 1985 Address: [address] [place] [address] Sex: Male Rx Written Rx Dispensed Drug Quantity Days Supply Prescriber Name 08/20/2018 08/20/2018 alprazolam 2 mg tablet 60 30 Benavides, Fuentes Langley MD 07/17/2018 07/17/2018 alprazolam 2 mg tablet 60 30 Benavides, Fuentes Langley MD 06/16/2018 06/16/2018 alprazolam 2 mg tablet 60 30 Benavides, Fuentes Langley MD 04/28/2018 05/07/2018 alprazolam 2 mg tablet 60 30 Benavides, Fuentes Langley MD 03/19/2018 03/19/2018 alprazolam 2 mg tablet 60 30 Benavides, Fuentes Langley MD 02/13/2018 02/13/2018 alprazolam 2 mg tablet 60 30 Benavides, Fuentes Langley MD 12/19/2017 12/19/2017 alprazolam 2 mg tablet 60 30 Benavides, Fuentes Langley MD 11/21/2017 11/21/2017 alprazolam 2 mg tablet 60 30 Benavides, Fuentes Langley MD 11/17/2017 11/17/2017 alprazolam 1 mg tablet 20 5 EdmondCaden MD 10/21/2017 10/21/2017 alprazolam 2 mg tablet 60 30 Benavides, Fuentes Langley MD 09/22/2017 09/22/2017 alprazolam 2 mg tablet 60 30 Benavides, Fuentes Langley MD Patient Name: Anju Severino Date: 1985 Address: [address] [place] [address] Sex: Male Rx Written Rx Dispensed Drug Quantity Days Supply Prescriber Name 12/09/2017 12/11/2017 alprazolam 2 mg tablet 16 8 Arlyn Barlow Objective: wnwd , resting in bed comfortably resp : no distress noted heent : NCAT EOMI ext : track cruz , full ROM Neuro : AAOx 3 , nl affect , no tremors CBC, BMP 08/26/18 15:00 08/26/18 15:00 Assessment: opioid dependence Plan: continue detox , pt interested to transfer to rehab after detox completion d/w pt , verbalizes understanding , agreeable w/ POC."
[2018-08-28] MEDS: traZODone HCL 50 MG TABLET (FP) PO SCH (21:41)
[2018-08-28 22:16] LABS: BASO % 0.3 % (0-2.0); EOS % 4.5 % (0-4.5); HEMATOCRIT 44.2 % (35.4-49); HEMOGLOBIN 15.8 GM/dL (11.7-16.9); LYMPH % 34.4 % (8-40); MCH 31.9 pg (25.7-33.7); MCHC 35.7 g/dl (32.0-35.9); MEAN CELL VOLUME 89.2 fl (80-96); MEAN PLT VOLUME 9.5 fl (7.5-11.1); MONO % 10.8 % (3.8-10.2); PLATELET COUNT 181 K/MM3 (134-434); RBC 4.96 M/mm3 (4.00-5.60); RDW 12.9 % (11.9-15.9); WHITE BLOOD COUNT 8.9 K/mm3 (4.0-10.0)
[2018-08-28 22:47] LABS: ALBUMIN 3.6 g/dl (3.4-5.0); ALK PHOS 98 U/L (45-117); ANION GAP 9 MMOL/L (8-16); BILIRUBIN,TOTAL 0.3 mg/dL (0.2-1); BLOOD UREA NITROGEN 12 mg/dL (7-18); CALCIUM 8.2 mg/dL (8.5-10.1); CHLORIDE 97 mmol/L (98-107); CO2 29 mmol/L (21-32); CREATININE 1.2 mg/dL (0.55-1.3); GLUCOSE,RANDOM 113 mg/dL (74-106); POTASSIUM 3.9 mmol/L (3.5-5.1); SGOT/AST 17 U/L (15-37); SGPT/ALT 24 U/L (13-61); SODIUM 135 mmol/L (136-145); TOT PROT 6.9 g/dl (6.4-8.2)
[2018-08-29] MEDS ORDERED: PIPERACILLIN/TAZOBACTAM 3.375 GM VIAL IVPB ONE ×3 (01:50→14:46)
[2018-08-29] MEDS ORDERED: DEXTROSE 5%-WATER - 50 ML IVPB ONE ×3 (01:50→14:46)
[2018-08-29] MEDS: PIPERACILLIN/TAZOB 3.375 GM 3.375 GM in DEXTROSE 5%-WATER - 50 ML IVPB SCH ×2 (02:22→09:39)
[2018-08-29] MEDS: ASPIRIN COATED 81 MG TABLET.EC PO SCH (09:40)
[2018-08-29] MEDS: HEPARIN NA (PORCINE) 5,000 UNITS/ML 1ML VIAL SQ SCH ×2 (09:40→21:35)
[2018-08-29] MEDS: ESCITALOPRAM OXALATE 20 MG TABLET (FP) PO SCH (09:40)
[2018-08-29] MEDS ORDERED: METHADONE HCL 5 MG TABLET PO ONE (10:00)
[2018-08-29] MEDS ORDERED: PT OWN MED DRAWER 7, Y5N ONE (14:46)
[2018-08-29] MEDS: ACETAMINOPHEN 325 MG TABLET (FP) PO PRN (14:57)
--- NOTE | 2018-08-29 16:24 | PN ---
Progress Note, Physician History of Present Illness: stable no new issues - Current Medication List Current Medications: Active Medications Acetaminophen (Tylenol -) 650 mg PO Q6H PRN PRN Reason: FEVER Last Admin: 08/29/18 14:57 Dose: 650 mg Aspirin (Ecotrin -) 81 mg PO DAILY [facility] Last Admin: 08/29/18 09:40 Dose: 81 mg Diltiazem HCl (Cardizem Cd -) 120 mg PO DAILY [facility] Last Admin: 08/29/18 09:40 Dose: 120 mg Escitalopram Oxalate (Lexapro -) 20 mg PO DAILY [facility] Last Admin: 08/29/18 09:40 Dose: 20 mg Heparin Sodium (Porcine) (Heparin -) 5,000 unit SQ BID [facility] Last Admin: 08/29/18 09:40 Dose: 5,000 unit Vancomycin HCl 1,250 mg/ (Dextrose) 250 mls @ 166.667 mls/hr IVPB Q24H [facility]; Protocol Last Admin: 08/28/18 17:25 Dose: 166.667 mls/hr Piperacillin Sod/Tazobactam (Sod 3.375 gm/ Dextrose) 50 mls @ 100 mls/hr IVPB Q8H-IV [facility]; Protocol Last Admin: 08/29/18 09:39 Dose: 100 mls/hr Trazodone HCl (Desyrel -) 100 mg PO HS [facility] Last Admin: 08/28/18 21:41 Dose: 100 mg - Objective Vital Signs: Vital Signs Temperature 97.7 F 08/29/18 13:38 Pulse Rate 89 08/29/18 13:38 Respiratory Rate 20 08/29/18 13:38 Blood Pressure 120/74 08/29/18 13:38 O2 Sat by Pulse Oximetry (%) 98 08/29/18 09:00 Constitutional: Yes: No Distress, Calm Cardiovascular: Yes: Regular Rate and Rhythm Respiratory: Yes: Regular, CTA Bilaterally Gastrointestinal: Yes: Normal Bowel Sounds, Soft Musculoskeletal: Yes: WNL Extremities: Yes: WNL Neurological: Yes: Alert, Oriented Labs: CBC, BMP 08/28/18 21:00 08/28/18 21:00 Assessment/Plan Problem List - Problems (1) Cannabis abuse Code(s): F12.10 - CANNABIS ABUSE, UNCOMPLICATED (2) Cocaine abuse Code(s): F14.10 - COCAINE ABUSE, UNCOMPLICATED (3) Opioid dependence with withdrawal Code(s): F11.23 - OPIOID DEPENDENCE WITH WITHDRAWAL 4)ams 5 leukocytosis plan hernandez top abx and watch cx negative rest ct current mgmt patient stable
--- NOTE | 2018-08-29 16:40 | EKG ---
Test Reason : Blood Pressure : / mmHG Vent. Rate : 079 BPM Atrial Rate : 079 BPM P-R Int : 144 ms QRS Dur : 086 ms QT Int : 384 ms P-R-T Axes : 041 001 000 degrees QTc Int : 440 ms NORMAL SINUS RHYTHM NORMAL ECG WHEN COMPARED WITH ECG OF 26-AUG-2018 17:56, SINUS RHYTHM HAS REPLACED ATRIAL FIBRILLATION Confirmed by LUÍS BROWN MD ([id number]) on 08/29/2018 4:40:30 PM Referred By: MAC MCINTYRE Confirmed By:LUÍS BROWN MD
--- NOTE | 2018-08-29 18:58 | PN ---
Progress Note, Physician - Current Medication List Current Medications: Active Medications Acetaminophen (Tylenol -) 650 mg PO Q6H PRN PRN Reason: FEVER Last Admin: 08/29/18 14:57 Dose: 650 mg Aspirin (Ecotrin -) 81 mg PO DAILY [facility] Last Admin: 08/29/18 09:40 Dose: 81 mg Diltiazem HCl (Cardizem Cd -) 120 mg PO DAILY [facility] Last Admin: 08/29/18 09:40 Dose: 120 mg Escitalopram Oxalate (Lexapro -) 20 mg PO DAILY [facility] Last Admin: 08/29/18 09:40 Dose: 20 mg Heparin Sodium (Porcine) (Heparin -) 5,000 unit SQ BID [facility] Last Admin: 08/29/18 09:40 Dose: 5,000 unit Trazodone HCl (Desyrel -) 100 mg PO HS [facility] Last Admin: 08/28/18 21:41 Dose: 100 mg - Objective Vital Signs: Vital Signs Temperature 98.5 F 08/29/18 18:08 Pulse Rate 76 08/29/18 18:08 Respiratory Rate 20 08/29/18 18:08 Blood Pressure 124/80 08/29/18 18:08 O2 Sat by Pulse Oximetry (%) 95 08/29/18 18:08 Constitutional: Yes: No Distress HENT: Yes: Atraumatic Neck: Yes: Supple Cardiovascular: Yes: Regular Rate and Rhythm Respiratory: Yes: CTA Bilaterally Gastrointestinal: Yes: Normal Bowel Sounds Extremities: Yes: WNL Edema: No Peripheral Pulses WNL: Yes Neurological: Yes: Alert, Oriented Labs: CBC, BMP 08/28/18 21:00 08/28/18 21:00 Problem List - Problems (1) Cannabis abuse Code(s): F12.10 - CANNABIS ABUSE, UNCOMPLICATED (2) Cocaine abuse Code(s): F14.10 - COCAINE ABUSE, UNCOMPLICATED (3) Opioid dependence with withdrawal Assessment/Plan: on methadone Code(s): F11.23 - OPIOID DEPENDENCE WITH WITHDRAWAL (4) Afib Assessment/Plan: on cardizem cardiology on board Code(s): I48.91 - UNSPECIFIED ATRIAL FIBRILLATION Qualifiers: Atrial fibrillation type: unspecified Qualified Code(s): I48.91 - Unspecified atrial fibrillation
[2018-08-29] MEDS: traZODone HCL 50 MG TABLET (FP) PO SCH (21:35)
[2018-08-30] MEDS: ASPIRIN COATED 81 MG TABLET.EC PO SCH (09:36)
[2018-08-30] MEDS: HEPARIN NA (PORCINE) 5,000 UNITS/ML 1ML VIAL SQ SCH ×2 (09:36→22:33)
[2018-08-30] MEDS: ESCITALOPRAM OXALATE 20 MG TABLET (FP) PO SCH (09:36)
--- NOTE | 2018-08-30 13:47 | PN ---
Progress Note, Physician History of Present Illness: stable no issues - Current Medication List Current Medications: Active Medications Acetaminophen (Tylenol -) 650 mg PO Q6H PRN PRN Reason: FEVER Last Admin: 08/29/18 14:57 Dose: 650 mg Aspirin (Ecotrin -) 81 mg PO DAILY [facility] Last Admin: 08/30/18 09:36 Dose: 81 mg Diltiazem HCl (Cardizem Cd -) 120 mg PO DAILY [facility] Last Admin: 08/30/18 09:36 Dose: 120 mg Escitalopram Oxalate (Lexapro -) 20 mg PO DAILY [facility] Last Admin: 08/30/18 09:36 Dose: 20 mg Heparin Sodium (Porcine) (Heparin -) 5,000 unit SQ BID [facility] Last Admin: 08/30/18 09:36 Dose: 5,000 unit Trazodone HCl (Desyrel -) 100 mg PO HS [facility] Last Admin: 08/29/18 21:35 Dose: 100 mg - Objective Vital Signs: Vital Signs Temperature 97.9 F 08/30/18 02:54 Pulse Rate 63 08/30/18 02:54 Respiratory Rate 18 08/30/18 02:54 Blood Pressure 117/60 08/30/18 02:54 O2 Sat by Pulse Oximetry (%) 93 L 08/30/18 09:00 Constitutional: Yes: No Distress, Calm Cardiovascular: Yes: S1, S2 Respiratory: Yes: Regular, CTA Bilaterally Gastrointestinal: Yes: Normal Bowel Sounds, Soft Musculoskeletal: Yes: WNL Extremities: Yes: WNL Neurological: Yes: Alert, Oriented Labs: CBC, BMP 08/28/18 21:00 08/28/18 21:00 Assessment/Plan Problem List - Problems (1) Cannabis abuse Code(s): F12.10 - CANNABIS ABUSE, UNCOMPLICATED (2) Cocaine abuse Code(s): F14.10 - COCAINE ABUSE, UNCOMPLICATED (3) Opioid dependence with withdrawal Code(s): F11.23 - OPIOID DEPENDENCE WITH WITHDRAWAL 4)ams 5 leukocytosis plan stable no issues
--- NOTE | 2018-08-30 18:29 | PN ---
Progress Note, Physician - Current Medication List Current Medications: Active Medications Acetaminophen (Tylenol -) 650 mg PO Q6H PRN PRN Reason: FEVER Last Admin: 08/29/18 14:57 Dose: 650 mg Aspirin (Ecotrin -) 81 mg PO DAILY [facility] Last Admin: 08/30/18 09:36 Dose: 81 mg Diltiazem HCl (Cardizem Cd -) 120 mg PO DAILY [facility] Last Admin: 08/30/18 09:36 Dose: 120 mg Escitalopram Oxalate (Lexapro -) 20 mg PO DAILY [facility] Last Admin: 08/30/18 09:36 Dose: 20 mg Heparin Sodium (Porcine) (Heparin -) 5,000 unit SQ BID [facility] Last Admin: 08/30/18 09:36 Dose: 5,000 unit Trazodone HCl (Desyrel -) 100 mg PO HS [facility] Last Admin: 08/29/18 21:35 Dose: 100 mg - Objective Vital Signs: Vital Signs Temperature 97.9 F 08/30/18 15:39 Pulse Rate 92 H 08/30/18 14:43 Respiratory Rate 17 08/30/18 14:43 Blood Pressure 123/65 08/30/18 14:43 O2 Sat by Pulse Oximetry (%) 93 L 08/30/18 09:00 Constitutional: Yes: No Distress HENT: Yes: Atraumatic Neck: Yes: Supple Cardiovascular: Yes: Regular Rate and Rhythm Respiratory: Yes: CTA Bilaterally Gastrointestinal: Yes: Normal Bowel Sounds Extremities: Yes: WNL Edema: No Peripheral Pulses WNL: Yes Neurological: Yes: Alert, Oriented Labs: CBC, BMP 08/28/18 21:00 08/28/18 21:00 Problem List - Problems (1) Cannabis abuse Code(s): F12.10 - CANNABIS ABUSE, UNCOMPLICATED (2) Cocaine abuse Code(s): F14.10 - COCAINE ABUSE, UNCOMPLICATED (3) Opioid dependence with withdrawal Assessment/Plan: on methadone DC TO [facility] IN AM DR ELLYN BHAT Code(s): F11.23 - OPIOID DEPENDENCE WITH WITHDRAWAL (4) Afib Assessment/Plan: on cardizem cardiology on board Code(s): I48.91 - UNSPECIFIED ATRIAL FIBRILLATION Qualifiers: Atrial fibrillation type: unspecified Qualified Code(s): I48.91 - Unspecified atrial fibrillation
[2018-08-30] MEDS: traZODone HCL 50 MG TABLET (FP) PO SCH (22:32)
[2018-08-31 06:13] VITALS: BP 101/63; PULSE 67; TEMP 97.9
[2018-08-31] MEDS: HEPARIN NA (PORCINE) 5,000 UNITS/ML 1ML VIAL SQ SCH (09:12)
[2018-08-31] MEDS: ASPIRIN COATED 81 MG TABLET.EC PO SCH (09:12)
[2018-08-31] MEDS: ESCITALOPRAM OXALATE 20 MG TABLET (FP) PO SCH (09:12)
--- NOTE | 2018-08-31 20:39 | DS ---
Physical Examination Vital Signs: Vital Signs Temperature 97.9 F 08/31/18 02:00 Pulse Rate 67 08/31/18 02:00 Respiratory Rate 18 08/31/18 02:00 Blood Pressure 101/63 08/31/18 02:00 O2 Sat by Pulse Oximetry (%) 98 08/31/18 09:00 Constitutional: Yes: No Distress HENT: Yes: Atraumatic Neck: Yes: Supple Cardiovascular: Yes: Regular Rate and Rhythm Respiratory: Yes: CTA Bilaterally Gastrointestinal: Yes: Normal Bowel Sounds Extremities: Yes: WNL Edema: No Neurological: Yes: Alert, Oriented Labs: CBC, BMP 08/28/18 21:00 08/28/18 21:00 Discharge Summary Reason For Visit: UNRESPONSIVENESS OPIOID DEPENDENCE WITH WITHDRAWAL Condition: Good - Instructions Disposition: I.P. ALCOHOL/SUBS ABUSE REHAB - Home Medications Comprehensive Discharge Medication List: Ambulatory Orders Escitalopram Oxalate [Lexapro -] 20 mg PO DAILY 08/25/18 traZODone HCL [Trazodone HCl] 100 mg PO HS 08/25/18 Diltiazem Cd [Cardizem Cd -] 120 mg PO DAILY #30 cap.cd.24h 08/28/18 dc rehab
== END 2018-08-31 11:47 | disposition other institution (70) | DRG 816 ==
LOC: JER 13:50 → JERBED 18:46 → J4W 08-27 18:19 → J5S 08-29 17:54
PROVIDERS: ADMIT Internal Medicine; ATTEND Internal Medicine
DX: T40.1X1A Poisoning by heroin, accidental (unintentional), initial encounter (principal); F11.23 Opioid dependence with withdrawal; F12.10 Cannabis abuse, uncomplicated; I48.0 Paroxysmal atrial fibrillation; F14.10 Cocaine abuse, uncomplicated; D72.829 Elevated white blood cell count, unspecified
CPT/HCPCS: 36415; 71045-TC-FY; 71275-TC; 74177-TC; 80053; 80307; 81003; 82550; 83880; 84443; 84484; 85025; 87040; 93005; 93010; 99284-25; J1644; J7030

== ENCOUNTER 2018-08-31 12:23 | Inpatient (IN) | payer OTHER ==
[2018-08-31 14:11] VITALS: BMI 32.3
--- NOTE | 2018-08-31 15:17 | HP ---
[facility] Rehab Assess/Revision - Admission History Admitted to Rehab from: Medical/Surgical Date of Admission to Rehab: 08/31/18 - Vital signs Vital Signs: Vital Signs Period Temp Pulse Resp BP Sys/Mendoza Pulse Ox Last 24 Hr 96.8 F 77 18 130/76 - Findings Detox History & Physical reviewed: Yes Concur with findings: Yes Comments/Additional Findings: this 33 years old male with opiate dependence and bezodazepam dependence,. admitted at [facility] from 08/25/18 to 08/26/18,transferred to [facility] on. 08/26/18 with alter mental status and respiratory arrest,admitted in [facility]. 08/26/18 to 08/31/18 with atrial fibrillation but converted to nsr. on diltiazem cd 120 mgs po daily,history of asthma on albuterol inhaler,. history of seizure. for rehab as protocol Inpatient Rehab Admission - Rehab Decision to Admit Inpatient rehab admission?: Yes - Initial Determination Are CD services needed?: Yes Free of communicable disease: Yes Not in need of hospitalization: Yes - Rehab Admission Criteria Previous failed treatment: Yes Poor recovery environment: Yes Comorbidities: Yes Lacks judgement: No Patient is meeting Inpatient Rehab admission criteria:: Yes
[2018-08-31] MEDS ORDERED: LOPERAMIDE HCL 2 MG CAPSULE PO PRN (15:35)
[2018-08-31] MEDS ORDERED: MAG HYDROX/AL HYDROX/SIMETH 30 ML UNIT-DOSE CUP PO PRN (15:35)
[2018-08-31] MEDS ORDERED: MENTHOL/PHENOL 1 EACH UD MM PRN (15:35)
[2018-08-31] MEDS ORDERED: MAGNESIUM HYDROX 2400MG/30ML ORAL SUSPENSION 30 ML CUP PO PRN (15:35)
[2018-08-31] MEDS ORDERED: MAGNESIUM CITRATE 300 ML BOTTLE PO PRN (15:35)
[2018-08-31] MEDS ORDERED: ACETAMINOPHEN 325 MG TABLET (FP) PO PRN (15:35)
[2018-08-31] MEDS ORDERED: guaiFENesin 200 MG/10 ML 10 ML UNIT-DOSE CUPS PO PRN (15:35)
[2018-08-31] MEDS ORDERED: P-EPHED 60MG/TRIPROLIDI 2.5MG TABLET PO PRN (15:35)
[2018-08-31] MEDS ORDERED: ALBUTEROL SO4 8 GM HFA INHALER IH PRN (15:37)
[2018-08-31] MEDS: IBUPROFEN 400 MG TABLET (FP) PO PRN (19:24)
[2018-08-31] MEDS: traZODone HCL 100 MG TABLET (FP) PO SCH (21:45)
[2018-08-31] MEDS: THIAMINE HCL 100 MG TABLET (FP) PO SCH (21:45)
[2018-08-31] MEDS ORDERED: MELATONIN 5 MG TABLETS PO PRN (22:00)
[2018-09-01] MEDS: ESCITALOPRAM OXALATE 20 MG TABLET (FP) PO SCH (10:15)
[2018-09-01] MEDS: PRENATAL VITAMINS W/ FOLIC ACID TABLET (FP) PO SCH (10:15)
[2018-09-01] MEDS: traZODone HCL 100 MG TABLET (FP) PO SCH (21:05)
[2018-09-01] MEDS: THIAMINE HCL 100 MG TABLET (FP) PO SCH (21:05)
[2018-09-02] MEDS: ESCITALOPRAM OXALATE 20 MG TABLET (FP) PO SCH (10:19)
[2018-09-02] MEDS: PRENATAL VITAMINS W/ FOLIC ACID TABLET (FP) PO SCH (10:19)
--- NOTE | 2018-09-02 10:27 | CONSULT ---
[facility] Psychiatric Consult - Data Date of interview: 09/02/18 Admission source: 6N Identifying data: Mr Severino is a 33 years old , father of a 13 years old daughter, unemployed with no source of income, homeless(in residential program at [facility]), seeking inpatient rehab treatment for opioid, cocaine, benzodiazepine and cannabis Substance Abuse History: reports history of heroin, cocaine, xanax and marijuana use. Refer to addiction counselor's summary for further information Medical History: Significant for bronchial asthma, history of seizure disorder and recent unconsciousness probably related to AFib. Psychiatric History: Reports that his first psychiatric contact was in January 2017 following the of his brother in November 2016. He was admitted to [facility] for depression and suicidal attempt by trying to jump in front of traffic. He was kept for a month and treated with Lexapro 10 mg po daily and Risperdal 2 mg po HS. After discharge, he was referred to [facility] where he is still receiving psychiatric treatment. He is currently prescribed Lexapro 20 mg po daily and Trazadone 100 mg po HS. Denies previous suicidal attempt. At present, reports feeling anxious and sleeping poorly Physical/Sexual Abuse/Trauma History: Denies history of emotional, physical or sexual abuse as well as DV relationship. No service Additional Comment: Reports history of 6 previous misdemeanor arrests on charges drug possession and trespassing. no probation currently Mental Status Exam - Mental Status Exam Alert and Oriented to: Time, Place, Person Patient Appearance: Well Groomed Mood: Anxious Affect: Appropriate Patient Behavior: Cooperative Speech Pattern: Clear Voice Loudness: Normal Thought Process: Intact Thought Disorder: Not Present Hallucinations: Denies Suicidal Ideation: Denies Homicidal Ideation: Denies Insight/Judgement: Poor Sleep: Poorly Appetite: Good Muscle strength/Tone: Normal Gait/Station: Normal Psychiatric Findings - Problem List ([place] 1, 2,3) (1) MDD (major depressive disorder) Current Visit: Yes Status: Chronic (2) Substance-induced anxiety disorder Current Visit: Yes Status: Acute (3) Substance-induced sleep disorder Current Visit: Yes Status: Acute (4) Opioid dependence Current Visit: Yes Status: Acute (5) Cocaine abuse Current Visit: No Status: Acute (6) Sedative, hypnotic or anxiolytic abuse Current Visit: Yes Status: Acute (7) Cannabis abuse Current Visit: No Status: Acute (8) Afib Current Visit: No Status: Chronic Qualifiers: Atrial fibrillation type: unspecified Qualified Code(s): I48.91 - Unspecified atrial fibrillation (9) Bronchial asthma Current Visit: Yes Status: Chronic - Initial Treatment Plan Initial Treatment Plan: 1) Continue Lexapro 20 mg po daily and Trazadone 100 mg po HS. 2) Continue inpatient rehabilitation
[2018-09-02] MEDS: traZODone HCL 100 MG TABLET (FP) PO SCH (21:07)
[2018-09-02] MEDS: THIAMINE HCL 100 MG TABLET (FP) PO SCH (21:08)
[2018-09-03] MEDS: PRENATAL VITAMINS W/ FOLIC ACID TABLET (FP) PO SCH (10:29)
[2018-09-03] MEDS: ESCITALOPRAM OXALATE 20 MG TABLET (FP) PO SCH (10:29)
[2018-09-03] MEDS: traZODone HCL 100 MG TABLET (FP) PO SCH (21:12)
[2018-09-03] MEDS: THIAMINE HCL 100 MG TABLET (FP) PO SCH (21:12)
[2018-09-04] MEDS: ESCITALOPRAM OXALATE 20 MG TABLET (FP) PO SCH (10:04)
[2018-09-04] MEDS: PRENATAL VITAMINS W/ FOLIC ACID TABLET (FP) PO SCH (10:04)
[2018-09-04] MEDS: IBUPROFEN 400 MG TABLET (FP) PO PRN (15:59)
[2018-09-04] MEDS: traZODone HCL 100 MG TABLET (FP) PO SCH (21:17)
[2018-09-04] MEDS: THIAMINE HCL 100 MG TABLET (FP) PO SCH (21:17)
[2018-09-05] MEDS: ESCITALOPRAM OXALATE 20 MG TABLET (FP) PO SCH (09:28)
[2018-09-05] MEDS: PRENATAL VITAMINS W/ FOLIC ACID TABLET (FP) PO SCH (09:28)
[2018-09-05] MEDS: THIAMINE HCL 100 MG TABLET (FP) PO SCH (22:07)
[2018-09-05] MEDS: traZODone HCL 100 MG TABLET (FP) PO SCH (22:07)
[2018-09-06] MEDS: ESCITALOPRAM OXALATE 20 MG TABLET (FP) PO SCH (09:34)
[2018-09-06] MEDS: PRENATAL VITAMINS W/ FOLIC ACID TABLET (FP) PO SCH (09:34)
[2018-09-06] MEDS: traZODone HCL 100 MG TABLET (FP) PO SCH (21:02)
[2018-09-06] MEDS: THIAMINE HCL 100 MG TABLET (FP) PO SCH (21:02)
[2018-09-06] MEDS: IBUPROFEN 400 MG TABLET (FP) PO PRN (21:03)
[2018-09-07] MEDS: ESCITALOPRAM OXALATE 20 MG TABLET (FP) PO SCH (10:03)
[2018-09-07] MEDS: PRENATAL VITAMINS W/ FOLIC ACID TABLET (FP) PO SCH (10:03)
[2018-09-07] MEDS: IBUPROFEN 400 MG TABLET (FP) PO PRN (10:04)
[2018-09-07] MEDS: hydrOXYzine PAMOATE 50 MG CAPSULE (FP) PO PRN (11:47)
[2018-09-07] MEDS: THIAMINE HCL 100 MG TABLET (FP) PO SCH (21:13)
[2018-09-07] MEDS: traZODone HCL 100 MG TABLET (FP) PO SCH (21:13)
[2018-09-08] MEDS: PRENATAL VITAMINS W/ FOLIC ACID TABLET (FP) PO SCH (11:12)
[2018-09-08] MEDS: ESCITALOPRAM OXALATE 20 MG TABLET (FP) PO SCH (11:13)
[2018-09-08] MEDS: hydrOXYzine PAMOATE 50 MG CAPSULE (FP) PO PRN (11:13)
[2018-09-08] MEDS: IBUPROFEN 400 MG TABLET (FP) PO PRN (11:13)
[2018-09-08] MEDS: traZODone HCL 100 MG TABLET (FP) PO SCH (21:24)
[2018-09-08] MEDS: THIAMINE HCL 100 MG TABLET (FP) PO SCH (21:24)
[2018-09-09] MEDS: PRENATAL VITAMINS W/ FOLIC ACID TABLET (FP) PO SCH (09:51)
[2018-09-09] MEDS: ESCITALOPRAM OXALATE 20 MG TABLET (FP) PO SCH (09:51)
--- NOTE | 2018-09-09 14:56 | PN ---
[facility] Progress Note Note: PT EXPRESSED DESIRE TO BE ON MAT WITH SUBOXONE. PT REPORTS HE WAS ON METHADONE AND DETOXED OFF WITH SUBOXONE 7 MONTHS AGO IN [facility]GRAM IN [facility]. PT HAS A HX OF HEROIN DEPENDENCE, XANAX DEPENDENCE, COCAINE USE, ASTHMA AND ANXIETY /DEPRESSION. PT HAS MHx ASTHMA AND AFIB. PT DETOXED ON [facility] AND BECAME UNRESPONSIVE 2 WEEKS AGO, WAS RESUSCITATED AND TAKEN TO THE ER, STABILIZED AND DISCHARGED TO REHAB [facility]. URINE DRUG SCREEN RESULTS Drug Screen Negative No Urine Drug Screen Results BZO-Benzodiazepines,MTD-Methadone(09/09/18) Urine Drug Screen Results THC-Marijuana,BZO-Benzodiazepines,MTD-Methadone( ON ADMISSION) TO BE EVALUATED FOR MAT.
[2018-09-09] MEDS: THIAMINE HCL 100 MG TABLET (FP) PO SCH (21:04)
[2018-09-09] MEDS: traZODone HCL 100 MG TABLET (FP) PO SCH (21:04)
[2018-09-10] MEDS: PRENATAL VITAMINS W/ FOLIC ACID TABLET (FP) PO SCH (09:44)
[2018-09-10] MEDS: ESCITALOPRAM OXALATE 20 MG TABLET (FP) PO SCH (09:45)
[2018-09-10] MEDS: traZODone HCL 100 MG TABLET (FP) PO SCH (21:09)
[2018-09-10] MEDS: THIAMINE HCL 100 MG TABLET (FP) PO SCH (21:09)
[2018-09-11] MEDS: ESCITALOPRAM OXALATE 20 MG TABLET (FP) PO SCH (09:34)
[2018-09-11] MEDS: PRENATAL VITAMINS W/ FOLIC ACID TABLET (FP) PO SCH (09:34)
[2018-09-11] MEDS: traZODone HCL 100 MG TABLET (FP) PO SCH (21:50)
[2018-09-11] MEDS: THIAMINE HCL 100 MG TABLET (FP) PO SCH (21:50)
[2018-09-12] MEDS: PRENATAL VITAMINS W/ FOLIC ACID TABLET (FP) PO SCH (09:43)
[2018-09-12] MEDS: ESCITALOPRAM OXALATE 20 MG TABLET (FP) PO SCH (09:43)
[2018-09-12] MEDS: IBUPROFEN 400 MG TABLET (FP) PO PRN (18:58)
[2018-09-12] MEDS: traZODone HCL 100 MG TABLET (FP) PO SCH (21:10)
[2018-09-12] MEDS: THIAMINE HCL 100 MG TABLET (FP) PO SCH (21:11)
[2018-09-13] MEDS: PRENATAL VITAMINS W/ FOLIC ACID TABLET (FP) PO SCH (09:43)
[2018-09-13] MEDS: ESCITALOPRAM OXALATE 20 MG TABLET (FP) PO SCH (09:43)
[2018-09-13] MEDS: IBUPROFEN 400 MG TABLET (FP) PO PRN (16:39)
[2018-09-13] MEDS: THIAMINE HCL 100 MG TABLET (FP) PO SCH (21:39)
[2018-09-13] MEDS: traZODone HCL 100 MG TABLET (FP) PO SCH (21:39)
[2018-09-14] MEDS: ESCITALOPRAM OXALATE 20 MG TABLET (FP) PO SCH (10:12)
[2018-09-14] MEDS: PRENATAL VITAMINS W/ FOLIC ACID TABLET (FP) PO SCH (10:12)
[2018-09-14] MEDS: traZODone HCL 100 MG TABLET (FP) PO SCH (21:11)
[2018-09-14] MEDS: THIAMINE HCL 100 MG TABLET (FP) PO SCH (21:11)
[2018-09-15] MEDS: PRENATAL VITAMINS W/ FOLIC ACID TABLET (FP) PO SCH (09:46)
[2018-09-15] MEDS: ESCITALOPRAM OXALATE 20 MG TABLET (FP) PO SCH (09:47)
[2018-09-15] MEDS: IBUPROFEN 400 MG TABLET (FP) PO PRN (15:50)
[2018-09-15] MEDS: THIAMINE HCL 100 MG TABLET (FP) PO SCH (21:08)
[2018-09-15] MEDS: traZODone HCL 100 MG TABLET (FP) PO SCH (21:08)
[2018-09-16] MEDS: ESCITALOPRAM OXALATE 20 MG TABLET (FP) PO SCH (09:49)
[2018-09-16] MEDS: PRENATAL VITAMINS W/ FOLIC ACID TABLET (FP) PO SCH (09:50)
[2018-09-16] MEDS: IBUPROFEN 400 MG TABLET (FP) PO PRN (20:47)
[2018-09-16] MEDS: THIAMINE HCL 100 MG TABLET (FP) PO SCH (21:04)
[2018-09-16] MEDS: traZODone HCL 100 MG TABLET (FP) PO SCH (21:04)
[2018-09-17] MEDS: PRENATAL VITAMINS W/ FOLIC ACID TABLET (FP) PO SCH (10:30)
[2018-09-17] MEDS: ESCITALOPRAM OXALATE 20 MG TABLET (FP) PO SCH (10:32)
[2018-09-17] MEDS: traZODone HCL 100 MG TABLET (FP) PO SCH (21:10)
[2018-09-17] MEDS: THIAMINE HCL 100 MG TABLET (FP) PO SCH (21:10)
[2018-09-18] MEDS: IBUPROFEN 400 MG TABLET (FP) PO PRN (09:37)
[2018-09-18] MEDS: PRENATAL VITAMINS W/ FOLIC ACID TABLET (FP) PO SCH (09:37)
[2018-09-18] MEDS: ESCITALOPRAM OXALATE 20 MG TABLET (FP) PO SCH (09:39)
[2018-09-18] MEDS ORDERED: BUPRENORPHINE/NALOXONE 2 MG/0.5 MG FILM PACKET SL ONE (10:56)
[2018-09-18] MEDS ORDERED: hydrOXYzine PAMOATE 25 MG CAPSULE (FP) PO PRN (10:57)
--- NOTE | 2018-09-18 10:58 | PN ---
S Progress Note Note: THIS PEGGER MET WITH PATIENT THIS MORNING TO DISCUSS MAT OPTIONS. PT IS VERY ADAMANT ON MAT-SUBOXONE, NALTREXONE TABS AND VIVITROL BUT C/O WITHDRAWAL SX AND NEED FOR MORE XANAX INSTEAD. PT WAS REMINDED THE DANGERS OF M[facility] USE OF BENZOS, AND HEROIN AND ALCOHOL DEPENDENCE. MEANWHILE PT'S COUNSELOR,NIC IS WORKING WITH PT FOR APPROPRIATE REFERRAL SITE THAT WILL MEET PATIENT'S NEED. DISCUSSED PT'S REQUEST FOR LOW DOSE SUBOXONE TO HELP HIM WITH RESIDUAL WITHDRAWAL SYMPTOMS OF HEROIN DISCOMFORT WHILE IN REHAB. Vital Signs (72 hours) 09/16/18 09/16/18 09/16/18 00:30 03:30 06:42 Temperature Pulse Rate Respiratory 18 18 18 Rate Blood Pressure 09/16/18 09/17/18 09/17/18 10:00 00:30 03:30 Temperature Pulse Rate 98 H Respiratory 18 18 Rate Blood Pressure 107/73 09/17/18 09/17/18 09/18/18 07:12 10:00 00:30 Temperature 97.9 F Pulse Rate 71 75 Respiratory 18 18 Rate Blood Pressure 111/68 108/76 09/18/18 09/18/18 09/18/18 03:30 06:54 10:00 Temperature Pulse Rate 79 Respiratory 18 18 Rate Blood Pressure 114/70 W/S PLAN:SUBOXONE 2 MG/0.5 MG SL DAILY X 3 DAYS BEGINNING 09/19/18, FIRST DOSE GIVEN. TO RE-EVALUATE PT ON Friday09/21/18
[2018-09-18] MEDS: THIAMINE HCL 100 MG TABLET (FP) PO SCH (21:11)
[2018-09-18] MEDS: traZODone HCL 100 MG TABLET (FP) PO SCH (21:11)
[2018-09-19] MEDS: PRENATAL VITAMINS W/ FOLIC ACID TABLET (FP) PO SCH (09:40)
[2018-09-19] MEDS: BUPRENORPHINE/NALOXONE 2 MG/0.5 MG FILM PACKET SL SCH (09:40)
[2018-09-19] MEDS: ESCITALOPRAM OXALATE 20 MG TABLET (FP) PO SCH (09:40)
[2018-09-19] MEDS: THIAMINE HCL 100 MG TABLET (FP) PO SCH (21:13)
[2018-09-19] MEDS: traZODone HCL 100 MG TABLET (FP) PO SCH (21:13)
[2018-09-20] MEDS: ESCITALOPRAM OXALATE 20 MG TABLET (FP) PO SCH (10:04)
[2018-09-20] MEDS: PRENATAL VITAMINS W/ FOLIC ACID TABLET (FP) PO SCH (10:04)
[2018-09-20] MEDS: BUPRENORPHINE/NALOXONE 2 MG/0.5 MG FILM PACKET SL SCH (10:04)
[2018-09-20] MEDS: THIAMINE HCL 100 MG TABLET (FP) PO SCH (21:04)
[2018-09-20] MEDS: traZODone HCL 100 MG TABLET (FP) PO SCH (21:04)
[2018-09-21] MEDS: PRENATAL VITAMINS W/ FOLIC ACID TABLET (FP) PO SCH (09:39)
[2018-09-21] MEDS: BUPRENORPHINE/NALOXONE 2 MG/0.5 MG FILM PACKET SL SCH (09:41)
[2018-09-21] MEDS: ESCITALOPRAM OXALATE 20 MG TABLET (FP) PO SCH (09:41)
[2018-09-21] MEDS: THIAMINE HCL 100 MG TABLET (FP) PO SCH (21:08)
[2018-09-21] MEDS: traZODone HCL 100 MG TABLET (FP) PO SCH (21:08)
[2018-09-22] MEDS: PRENATAL VITAMINS W/ FOLIC ACID TABLET (FP) PO SCH (10:01)
[2018-09-22] MEDS: BUPRENORPHINE/NALOXONE 2 MG/0.5 MG FILM PACKET SL SCH (10:01)
[2018-09-22] MEDS: ESCITALOPRAM OXALATE 20 MG TABLET (FP) PO SCH (10:01)
[2018-09-22] MEDS: IBUPROFEN 400 MG TABLET (FP) PO PRN (19:45)
[2018-09-22] MEDS: THIAMINE HCL 100 MG TABLET (FP) PO SCH (21:14)
[2018-09-22] MEDS: traZODone HCL 100 MG TABLET (FP) PO SCH (21:14)
[2018-09-23] MEDS: PRENATAL VITAMINS W/ FOLIC ACID TABLET (FP) PO SCH (10:06)
[2018-09-23] MEDS: ESCITALOPRAM OXALATE 20 MG TABLET (FP) PO SCH (10:06)
[2018-09-23] MEDS: BUPRENORPHINE/NALOXONE 2 MG/0.5 MG FILM PACKET SL SCH (10:06)
[2018-09-23] MEDS: traZODone HCL 100 MG TABLET (FP) PO SCH (21:03)
[2018-09-23] MEDS: THIAMINE HCL 100 MG TABLET (FP) PO SCH (21:03)
[2018-09-24] MEDS: BUPRENORPHINE/NALOXONE 2 MG/0.5 MG FILM PACKET SL SCH (10:14)
[2018-09-24] MEDS: PRENATAL VITAMINS W/ FOLIC ACID TABLET (FP) PO SCH (10:14)
[2018-09-24] MEDS: ESCITALOPRAM OXALATE 20 MG TABLET (FP) PO SCH (10:15)
[2018-09-24] MEDS: traZODone HCL 100 MG TABLET (FP) PO SCH (21:08)
[2018-09-24] MEDS: IBUPROFEN 400 MG TABLET (FP) PO PRN (21:08)
[2018-09-24] MEDS: THIAMINE HCL 100 MG TABLET (FP) PO SCH (21:08)
[2018-09-25 06:37] VITALS: TEMP 97.7
[2018-09-25] MEDS: ESCITALOPRAM OXALATE 20 MG TABLET (FP) PO SCH (10:05)
[2018-09-25] MEDS: PRENATAL VITAMINS W/ FOLIC ACID TABLET (FP) PO SCH (10:05)
[2018-09-25] MEDS: BUPRENORPHINE/NALOXONE 2 MG/0.5 MG FILM PACKET SL SCH (10:08)
[2018-09-25] MEDS: THIAMINE HCL 100 MG TABLET (FP) PO SCH (21:06)
[2018-09-25] MEDS: traZODone HCL 100 MG TABLET (FP) PO SCH (21:06)
[2018-09-26] MEDS: PRENATAL VITAMINS W/ FOLIC ACID TABLET (FP) PO SCH (09:46)
[2018-09-26] MEDS: BUPRENORPHINE/NALOXONE 2 MG/0.5 MG FILM PACKET SL SCH (09:47)
[2018-09-26] MEDS: ESCITALOPRAM OXALATE 20 MG TABLET (FP) PO SCH (09:47)
[2018-09-26] MEDS: traZODone HCL 100 MG TABLET (FP) PO SCH (21:48)
[2018-09-26] MEDS: THIAMINE HCL 100 MG TABLET (FP) PO SCH (21:48)
[2018-09-26] MEDS: IBUPROFEN 400 MG TABLET (FP) PO PRN (21:49)
[2018-09-27] MEDS: PRENATAL VITAMINS W/ FOLIC ACID TABLET (FP) PO SCH (09:52)
[2018-09-27] MEDS: ESCITALOPRAM OXALATE 20 MG TABLET (FP) PO SCH (09:52)
[2018-09-27] MEDS: BUPRENORPHINE/NALOXONE 2 MG/0.5 MG FILM PACKET SL SCH (09:54)
[2018-09-27 11:27] VITALS: BP 115/76; PULSE 78
[2018-09-27] MEDS: THIAMINE HCL 100 MG TABLET (FP) PO SCH (21:42)
[2018-09-27] MEDS: traZODone HCL 100 MG TABLET (FP) PO SCH (21:42)
[2018-09-27] MEDS: IBUPROFEN 400 MG TABLET (FP) PO PRN (21:43)
--- NOTE | 2018-09-28 09:30 | PN ---
[facility] Progress Note Note: PT COMPLETED REHAB TODAY. PT MET WITH HIS COUNSELOR AND HAS BEEN REFERRED TO [facility]. PT REPORTS HE HAS A PCP, DR. CATRACHO BRICE ON [address] [facility] WHO HE PLANS TO CONTINUE TO FOLLOW UP. ALERT O X 3. DENIES S/H/I. Home Medications Medication Instructions Recorded Escitalopram Oxalate [Lexapro -] 20 mg PO DAILY 08/25/18 traZODone HCL [Trazodone HCl] 100 mg PO HS 08/25/18 Alprazolam [Xanax] 2 mg PO BID 09/07/18 Diltiazem Cd [Cardizem Cd -] 120 mg PO DAILY #30 cap.cd.24h 09/28/18 Vital Signs 09/28/18 09/28/18 03:30 06:29 Respiratory 18 18 Rate NAD MEDICALLY STABLE PLAN:FOLLOW UP WITH CD AFTERCARE RECOMMENDATION AT [facility] FOLLOW UP WITH MEDICAL/PSYCH MANAGEMENT WITH PCP INDICATED ABOVE AFTER INPATIENT CD AFTERCARE.
[2018-09-28] MEDS: ESCITALOPRAM OXALATE 20 MG TABLET (FP) PO SCH (09:47)
[2018-09-28] MEDS: PRENATAL VITAMINS W/ FOLIC ACID TABLET (FP) PO SCH (09:47)
[2018-09-28] MEDS: BUPRENORPHINE/NALOXONE 2 MG/0.5 MG FILM PACKET SL SCH (09:47)
== END 2018-09-28 10:25 | disposition home or self-care (01) | DRG 772 ==
LOC: YASAS 12:23 → Y5N 15:34
PROVIDERS: ADMIT Neuromusculoskeletal Medicine & OMM; ATTEND Neuromusculoskeletal Medicine & OMM
PROC: HZ42ZZZ Group Counseling for Substance Abuse Treatment, Cognitive-Behavioral (ICD-10-PCS; principal; 2018-08-31)
DX: F11.20 Opioid dependence, uncomplicated (principal); F13.20 Sedative, hypnotic or anxiolytic dependence, uncomplicated; F14.20 Cocaine dependence, uncomplicated; F12.20 Cannabis dependence, uncomplicated; F19.280 Other psychoactive substance dependence with psychoactive substance-induced anxiety disorder; F19.282 Other psychoactive substance dependence with psychoactive substance-induced sleep disorder; F33.9 Major depressive disorder, recurrent, unspecified; F41.8 Other specified anxiety disorders; I48.91 Unspecified atrial fibrillation; J45.909 Unspecified asthma, uncomplicated

== ENCOUNTER 2018-10-07 08:14 | Inpatient (IN) | payer OTHER ==
[2018-10-07 09:08] VITALS: BMI 32.9
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
[2018-10-07] MEDS ORDERED: MENTHOL/PHENOL 1 EACH UD MM PRN (10:35)
[2018-10-07] MEDS ORDERED: METHOCARBAMOL 500 MG TABLET PO PRN (10:35)
[2018-10-07] MEDS ORDERED: MAGNESIUM CITRATE 300 ML BOTTLE PO PRN (10:35)
[2018-10-07] MEDS ORDERED: MELATONIN 5 MG TABLETS PO PRN (10:35)
[2018-10-07] MEDS ORDERED: MAG HYDROX/AL HYDROX/SIMETH 30 ML UNIT-DOSE CUP PO PRN (10:35)
[2018-10-07] MEDS ORDERED: MAGNESIUM HYDROX 2400MG/30ML ORAL SUSPENSION 30 ML CUP PO PRN (10:35)
[2018-10-07] MEDS ORDERED: cloNIDine HCL 0.1 MG TABLET PO PRN (10:35)
[2018-10-07] MEDS ORDERED: BISMUTH SUBSALICYLATE 262 MG/15 ML BTL PO PRN (10:35)
[2018-10-07] MEDS ORDERED: ACETAMINOPHEN 325 MG TABLET (FP) PO PRN (10:35)
[2018-10-07] MEDS ORDERED: hydrOXYzine PAMOATE 25 MG CAPSULE (FP) PO PRN (10:35)
[2018-10-07] MEDS ORDERED: METHADONE HCL 10 MG TABLET (FOR DETOX USE ONLY) PO ONE ×2 (11:05→23:00)
--- NOTE | 2018-10-07 12:56 | EKG ---
Test Reason : Blood Pressure : / mmHG Vent. Rate : 071 BPM Atrial Rate : 071 BPM P-R Int : 162 ms QRS Dur : 088 ms QT Int : 390 ms P-R-T Axes : 050 -03 002 degrees QTc Int : 423 ms NORMAL SINUS RHYTHM NORMAL ECG WHEN COMPARED WITH ECG OF 28-AUG-2018 15:21, NO SIGNIFICANT CHANGE WAS FOUND Confirmed by DARRION LAUREN MD ([id number]) on 10/07/2018 12:55:38 PM Referred By: Confirmed By:DARRION LAUREN MD
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
[2018-10-07 14:27] LABS: HEMATOCRIT 48.6 % (35.4-49); HEMOGLOBIN 16.5 GM/dL (11.7-16.9); MCH 29.9 pg (25.7-33.7); MCHC 33.9 g/dl (32.0-35.9); MEAN CELL VOLUME 88.2 fl (80-96); MEAN PLT VOLUME 8.9 fl (7.5-11.1); PLATELET COUNT 242 K/MM3 (134-434); RBC 5.51 M/mm3 (4.00-5.60); RDW 13.5 % (11.9-15.9); WHITE BLOOD COUNT 8.5 K/mm3 (4.0-10.0)
[2018-10-07 14:28] LABS: URINE APPEARANCE CLEAR; URINE BILIRUBIN NEGATIVE (NEGATIVE); URINE COLOR YELLOW; URINE GLUCOSE (UA) NEGATIVE (NEGATIVE); URINE KETONE NEGATIVE (NEGATIVE); URINE LEUK ESTERASE NEGATIVE (NEGATIVE); URINE NITRITE NEGATIVE (NEGATIVE); URINE PROTEIN NEGATIVE (NEGATIVE); URINE UROBILINOGEN 0.2 mg/dL (0.2-1.0)
[2018-10-07 14:42] LABS: ALBUMIN 3.9 g/dl (3.4-5.0); ALK PHOS 67 U/L (45-117); ANION GAP 8 MMOL/L (8-16); BILIRUBIN,TOTAL 0.5 mg/dL (0.2-1); BLOOD UREA NITROGEN 10 mg/dL (7-18); CALCIUM 9.1 mg/dL (8.5-10.1); CHLORIDE 103 mmol/L (98-107); CO2 25 mmol/L (21-32); CREATININE 1.3 mg/dL (0.55-1.3); GLUCOSE,RANDOM 107 mg/dL (74-106); POTASSIUM 3.9 mmol/L (3.5-5.1); SGOT/AST 13 U/L (15-37); SGPT/ALT 24 U/L (13-61); SODIUM 136 mmol/L (136-145); TOT PROT 7.7 g/dl (6.4-8.2)
[2018-10-07] MEDS: IBUPROFEN 400 MG TABLET (FP) PO PRN (18:17)
[2018-10-07] MEDS: diazePAM 5 MG TABLET PO PRN ×2 (18:18→22:13)
[2018-10-07] MEDS: THIAMINE HCL 100 MG TABLET (FP) PO SCH (22:13)
[2018-10-08] MEDS: diazePAM 5 MG TABLET PO PRN ×2 (08:18→21:08)
[2018-10-08] MEDS ORDERED: METHADONE HCL 5 MG TABLET (FOR DETOX USE ONLY) PO ONE (10:00)
[2018-10-08] MEDS: PRENATAL VITAMINS W/ FOLIC ACID TABLET (FP) PO SCH (10:16)
[2018-10-08] MEDS: ACETAMINOPHEN 325 MG TABLET (FP) PO PRN ×2 (10:18→21:08)
--- NOTE | 2018-10-08 10:39 | PN ---
[facility] CIWA - CIWA Score Nausea/Vomitin-Mild Nausea/No Vomiting Muscle Tremors: 3 Anxiety: 2 Agitation: 2 Paroxysmal Sweats: 1-Minimal Palms Moist Orientation: 3-Disoriented Date>2 days Tacttile Disturbances: 0-None Auditory Disturbances: 0-None Visual Disturbances: 0-None Headache: 1-Very Mild CIWA-Ar Total Score: 13 BHS COWS - Scale Resting Pulse: 0= [place] 80 or Below Sweatin= Chills/Flushing Restless Observation: 0= Sits Still Pupil Size: 0= Normal to Room Light Bone or Joint Aches: 1= Mild Discomfort Runny Nose/ Eye Tearin= Nasal Congestion GI Upset > 30mins: 1= Stomach Cramp Tremor Observation of Outstretched Hands: 2= Slight Tremor Visible Yawning Observation: 2= >3x During Session Anxiety or Irritability: 2=Irritable/Anxious Goose Flesh Skin: 3=Piloerection COWS Score: 13 S Progress Note (SOAP) Subjective: reporting that he is doing well with valium prn and methadone detox regimen Objective: 10/08/18 10:43 Vital Signs Temperature 96.2 F L 10/08/18 09:07 Pulse Rate 79 10/08/18 09:07 Respiratory Rate 18 10/08/18 09:07 Blood Pressure 126/86 10/08/18 09:07 O2 Sat by Pulse Oximetry (%) Laboratory Last Values WBC 8.5 K/mm3 (4.0-10.0) 10/07/18 09:30 RBC 5.51 M/mm3 (4.00-5.60) 10/07/18 09:30 Hgb 16.5 GM/dL (11.7-16.9) 10/07/18 09:30 Hct 48.6 % (35.4-49) 10/07/18 09:30 MCV 88.2 fl (80-96) 10/07/18 09:30 MCH 29.9 pg (25.7-33.7) 10/07/18 09:30 MCHC 33.9 g/dl (32.0-35.9) 10/07/18 09:30 RDW 13.5 % (11.9-15.9) 10/07/18 09:30 Plt Count 242 K/MM3 (134-434) D 10/07/18 09:30 MPV 8.9 fl (7.5-11.1) 10/07/18 09:30 Sodium 136 mmol/L (136-145) 10/07/18 09:30 Potassium 3.9 mmol/L (3.5-5.1) 10/07/18 09:30 Chloride 103 mmol/L (98-107) 10/07/18 09:30 Carbon Dioxide 25 mmol/L (21-32) 10/07/18 09:30 Anion Gap 8 MMOL/L (8-16) 10/07/18 09:30 BUN 10 mg/dL (7-18) 10/07/18 09:30 Creatinine 1.3 mg/dL (0.55-1.3) 10/07/18 09:30 Creat Clearance w eGFR 62.82 (>60) 10/07/18 09:30 Random Glucose 107 mg/dL (74-106) H 10/07/18 09:30 Calcium 9.1 mg/dL (8.5-10.1) 10/07/18 09:30 Total Bilirubin 0.5 mg/dL (0.2-1) 10/07/18 09:30 AST 13 U/L (15-37) L 10/07/18 09:30 ALT 24 U/L (13-61) 10/07/18 09:30 Alkaline Phosphatase 67 U/L (45-117) 10/07/18 09:30 Total Protein 7.7 g/dl (6.4-8.2) 10/07/18 09:30 Albumin 3.9 g/dl (3.4-5.0) 10/07/18 09:30 Urine Color Yellow 10/07/18 13:10 Urine Appearance Clear 10/07/18 13:10 Urine pH 6.0 (5.0-8.0) 10/07/18 13:10 Ur Specific [place] 1.022 (1.010-1.035) 10/07/18 13:10 Urine Protein Negative (NEGATIVE) 10/07/18 13:10 Urine Glucose (UA) Negative (NEGATIVE) 10/07/18 13:10 Urine Ketones Negative (NEGATIVE) 10/07/18 13:10 Urine Blood Negative (NEGATIVE) 10/07/18 13:10 Urine Nitrite Negative (NEGATIVE) 10/07/18 13:10 Urine Bilirubin Negative (NEGATIVE) 10/07/18 13:10 Urine Urobilinogen 0.2 mg/dL (0.2-1.0) 10/07/18 13:10 Ur Leukocyte Esterase Negative (NEGATIVE) 10/07/18 13:10 RPR Titer Nonreactive (NONREACTIVE) 10/07/18 09:30 HIV 1&2 Antibody Screen Negative 10/07/18 09:30 HIV P24 Antigen Negative 10/07/18 09:30 lab noted Assessment: 10/08/18 10:43 opiate withdrawal sx discuss medication assisted maintenance treatment program Plan: continue detox
[2018-10-08] MEDS: THIAMINE HCL 100 MG TABLET (FP) PO SCH (21:09)
[2018-10-09] MEDS ORDERED: METHADONE HCL 10 MG TABLET (FOR DETOX USE ONLY) PO ONE (10:00)
[2018-10-09] MEDS: IBUPROFEN 400 MG TABLET (FP) PO PRN (10:27)
[2018-10-09] MEDS: PRENATAL VITAMINS W/ FOLIC ACID TABLET (FP) PO SCH (10:27)
[2018-10-09] MEDS: diazePAM 5 MG TABLET PO PRN ×2 (10:29→22:23)
--- NOTE | 2018-10-09 14:16 | PN ---
[facility] CIWA - CIWA Score Nausea/Vomitin-Mild Nausea/No Vomiting Muscle Tremors: 1-None Visible, but [place] Anxiety: 2 Agitation: 2 Paroxysmal Sweats: 1-Minimal Palms Moist Orientation: 0-Oriented Tacttile Disturbances: 0-None Auditory Disturbances: 0-None Visual Disturbances: 0-None Headache: 0-None Present CIWA-Ar Total Score: 7 S COWS - Scale Resting Pulse: 1= [place] 81-100 Sweatin= Chills/Flushing Restless Observation: 1= Difficult to Sit Still Pupil Size: 1= Pupils >than Normal Bone or Joint Aches: 1= Mild Discomfort Runny Nose/ Eye Tearin= Nasal Congestion GI Upset > 30mins: 1= Stomach Cramp Tremor Observation of Outstretched Hands: 1= Tremor [place], Not Seen Yawning Observation: 1= 1-2x During Session Anxiety or Irritability: 2=Irritable/Anxious Goose Flesh Skin: 0=Smooth Skin COWS Score: 11 [facility] Progress Note (SOAP) Subjective: pt states would like trazodone 100mg for sleep, doing well on detox protocols O: Vital Signs - 24 hr 10/08/18 10/08/18 10/09/18 17:05 21:30 00:30 Temperature 98 F 98.8 F Pulse Rate 90 80 Respiratory 18 18 18 Rate Blood Pressure 107/73 121/82 10/09/18 10/09/18 10/09/18 03:30 06:28 09:14 Temperature 97.9 F 98.0 F Pulse Rate 84 81 Respiratory 18 16 18 Rate Blood Pressure 95/62 111/81 10/09/18 13:50 Temperature 97.6 F Pulse Rate 90 Respiratory 18 Rate Blood Pressure 117/76 Laboratory Tests 10/07/18 10/07/18 10/07/18 09:30 09:30 09:30 WBC 8.5 RBC 5.51 Hgb 16.5 Hct 48.6 MCV 88.2 MCH 29.9 MCHC 33.9 RDW 13.5 Plt Count 242 D MPV 8.9 Sodium 136 Potassium 3.9 Chloride 103 Carbon Dioxide 25 Anion Gap 8 BUN 10 Creatinine 1.3 Creat Clearance w eGFR 62.82 Random Glucose 107 H Calcium 9.1 Total Bilirubin 0.5 AST 13 L ALT 24 Alkaline Phosphatase 67 Total Protein 7.7 Albumin 3.9 Urine Color Urine Appearance Urine pH Ur Specific [place] Urine Protein Urine Glucose (UA) Urine Ketones Urine Blood Urine Nitrite Urine Bilirubin Urine Urobilinogen Ur Leukocyte Esterase RPR Titer HIV 1&2 Antibody Screen Negative HIV P24 Antigen Negative 10/07/18 10/07/18 09:30 13:10 WBC RBC Hgb Hct MCV MCH MCHC RDW Plt Count MPV Sodium Potassium Chloride Carbon Dioxide Anion Gap BUN Creatinine Creat Clearance w eGFR Random Glucose Calcium Total Bilirubin AST ALT Alkaline Phosphatase Total Protein Albumin Urine Color Yellow Urine Appearance Clear Urine pH 6.0 Ur Specific [place] 1.022 Urine Protein Negative Urine Glucose (UA) Negative Urine Ketones Negative Urine Blood Negative Urine Nitrite Negative Urine Bilirubin Negative Urine Urobilinogen 0.2 Ur Leukocyte Esterase Negative RPR Titer Nonreactive HIV 1&2 Antibody Screen HIV P24 Antigen a/p: continue benzo/opioid detox protocols: d/w pt options for [facility]erman MAT methadone/suboxone to prevent relapse
[2018-10-09] MEDS: traZODone HCL 100 MG TABLET (FP) PO PRN (22:22)
[2018-10-09] MEDS: THIAMINE HCL 100 MG TABLET (FP) PO SCH (23:27)
[2018-10-10] MEDS: diazePAM 5 MG TABLET PO PRN (05:43)
[2018-10-10] MEDS ORDERED: METHADONE HCL 5 MG TABLET (FOR DETOX USE ONLY) PO ONE ×2 (06:00→10:00)
[2018-10-10] MEDS: PRENATAL VITAMINS W/ FOLIC ACID TABLET (FP) PO SCH (11:05)
--- NOTE | 2018-10-10 11:05 | PN ---
S CIWA - CIWA Score Nausea/Vomitin-No Nausea/No Vomiting Muscle Tremors: 3 Anxiety: 2 Agitation: 1-Slight > Activity Paroxysmal Sweats: No Perspiration Orientation: 0-Oriented Tacttile Disturbances: 0-None Auditory Disturbances: 0-None Visual Disturbances: 0-None Headache: 0-None Present CIWA-Ar Total Score: 6 BHS COWS - Scale Resting Pulse: 0= [place] 80 or Below Sweatin= Chills/Flushing Restless Observation: 0= Sits Still Pupil Size: 0= Normal to Room Light Bone or Joint Aches: 1= Mild Discomfort Runny Nose/ Eye Tearin= Nasal Congestion GI Upset > 30mins: 0= None Tremor Observation of Outstretched Hands: 1= Tremor [place], Not Seen Yawning Observation: 0= None Anxiety or Irritability: 1=Feels Anxious/Irritable Goose Flesh Skin: 0=Smooth Skin COWS Score: 5 BHS Progress Note (SOAP) Subjective: DETOXING PER PROTOCOL AND PT REPORTS HE IS RESPONDING TO MEDICATION [place]. PT STATES HE WOULD LIKE TO GO TO REHAB FOR AFTERCARE AFTER COMPLETING DETOX. Objective: 10/10/18 11:04 Vital Signs 10/10/18 10/10/18 10/10/18 03:30 06:10 06:26 Temperature 98.1 F Pulse Rate 67 Respiratory 18 18 18 Rate Blood Pressure 99/55 L 10/10/18 09:37 Temperature 96 F L Pulse Rate 80 Respiratory 18 Rate Blood Pressure 98/64 Laboratory Tests 10/07/18 10/07/18 10/07/18 09:30 09:30 09:30 WBC 8.5 RBC 5.51 Hgb 16.5 Hct 48.6 MCV 88.2 MCH 29.9 MCHC 33.9 RDW 13.5 Plt Count 242 D MPV 8.9 Sodium 136 Potassium 3.9 Chloride 103 Carbon Dioxide 25 Anion Gap 8 BUN 10 Creatinine 1.3 Creat Clearance w eGFR 62.82 Random Glucose 107 H Calcium 9.1 Total Bilirubin 0.5 AST 13 L ALT 24 Alkaline Phosphatase 67 Total Protein 7.7 Albumin 3.9 Urine Color Urine Appearance Urine pH Ur Specific [place] Urine Protein Urine Glucose (UA) Urine Ketones Urine Blood Urine Nitrite Urine Bilirubin Urine Urobilinogen Ur Leukocyte Esterase RPR Titer HIV 1&2 Antibody Screen Negative HIV P24 Antigen Negative 10/07/18 10/07/18 09:30 13:10 WBC RBC Hgb Hct MCV MCH MCHC RDW Plt Count MPV Sodium Potassium Chloride Carbon Dioxide Anion Gap BUN Creatinine Creat Clearance w eGFR Random Glucose Calcium Total Bilirubin AST ALT Alkaline Phosphatase Total Protein Albumin Urine Color Yellow Urine Appearance Clear Urine pH 6.0 Ur Specific [place] 1.022 Urine Protein Negative Urine Glucose (UA) Negative Urine Ketones Negative Urine Blood Negative Urine Nitrite Negative Urine Bilirubin Negative Urine Urobilinogen 0.2 Ur Leukocyte Esterase Negative RPR Titer Nonreactive HIV 1&2 Antibody Screen HIV P24 Antigen Assessment: 10/10/18 11:04 WITHDRAWAL SX Plan: CONTINUE DETOX INCREASE PO FLUIDS FOLLOW UP WITH COUNSELLING TO SET UP AFTERCARE REHAB TREATMENT.
[2018-10-10] MEDS: THIAMINE HCL 100 MG TABLET (FP) PO SCH (22:18)
[2018-10-10] MEDS: traZODone HCL 100 MG TABLET (FP) PO PRN (22:18)
[2018-10-11 09:15] VITALS: BP 102/71; PULSE 77; TEMP 97.8
--- NOTE | 2018-10-11 09:42 | DS ---
[facility] Detox Discharge Summary Admission Date: 10/07/18 Discharge Date: 10/11/18 - History Present History: Opioid Dependence, Sedative Dependence Additional Comments: 33 years old male admitted on 10/07/18 for benzo and opiate withdrawal stabilization completed detox regimen aftercare [facility] Pertinent Past History: bring in medication list and lab report to follow up appointment - Physical Exam Results Vital Signs: Vital Signs Temperature 97.8 F 10/11/18 09:14 Pulse Rate 77 10/11/18 09:14 Respiratory Rate 18 10/11/18 09:14 Blood Pressure 102/71 10/11/18 09:14 O2 Sat by Pulse Oximetry (%) Pertinent Admission Physical Exam Findings: benzo and opiate withdrawal sx Laboratory Last Values WBC 8.5 K/mm3 (4.0-10.0) 10/07/18 09:30 RBC 5.51 M/mm3 (4.00-5.60) 10/07/18 09:30 Hgb 16.5 GM/dL (11.7-16.9) 10/07/18 09:30 Hct 48.6 % (35.4-49) 10/07/18 09:30 MCV 88.2 fl (80-96) 10/07/18 09:30 MCH 29.9 pg (25.7-33.7) 10/07/18 09:30 MCHC 33.9 g/dl (32.0-35.9) 10/07/18 09:30 RDW 13.5 % (11.9-15.9) 10/07/18 09:30 Plt Count 242 K/MM3 (134-434) D 10/07/18 09:30 MPV 8.9 fl (7.5-11.1) 10/07/18 09:30 Sodium 136 mmol/L (136-145) 10/07/18 09:30 Potassium 3.9 mmol/L (3.5-5.1) 10/07/18 09:30 Chloride 103 mmol/L (98-107) 10/07/18 09:30 Carbon Dioxide 25 mmol/L (21-32) 10/07/18 09:30 Anion Gap 8 MMOL/L (8-16) 10/07/18 09:30 BUN 10 mg/dL (7-18) 10/07/18 09:30 Creatinine 1.3 mg/dL (0.55-1.3) 10/07/18 09:30 Creat Clearance w eGFR 62.82 (>60) 10/07/18 09:30 Random Glucose 107 mg/dL (74-106) H 10/07/18 09:30 Calcium 9.1 mg/dL (8.5-10.1) 10/07/18 09:30 Total Bilirubin 0.5 mg/dL (0.2-1) 10/07/18 09:30 AST 13 U/L (15-37) L 10/07/18 09:30 ALT 24 U/L (13-61) 10/07/18 09:30 Alkaline Phosphatase 67 U/L (45-117) 10/07/18 09:30 Total Protein 7.7 g/dl (6.4-8.2) 10/07/18 09:30 Albumin 3.9 g/dl (3.4-5.0) 10/07/18 09:30 Urine Color Yellow 10/07/18 13:10 Urine Appearance Clear 10/07/18 13:10 Urine pH 6.0 (5.0-8.0) 10/07/18 13:10 Ur Specific [place] 1.022 (1.010-1.035) 10/07/18 13:10 Urine Protein Negative (NEGATIVE) 10/07/18 13:10 Urine Glucose (UA) Negative (NEGATIVE) 10/07/18 13:10 Urine Ketones Negative (NEGATIVE) 10/07/18 13:10 Urine Blood Negative (NEGATIVE) 10/07/18 13:10 Urine Nitrite Negative (NEGATIVE) 10/07/18 13:10 Urine Bilirubin Negative (NEGATIVE) 10/07/18 13:10 Urine Urobilinogen 0.2 mg/dL (0.2-1.0) 10/07/18 13:10 Ur Leukocyte Esterase Negative (NEGATIVE) 10/07/18 13:10 RPR Titer Nonreactive (NONREACTIVE) 10/07/18 09:30 HIV 1&2 Antibody Screen Negative 10/07/18 09:30 HIV P24 Antigen Negative 10/07/18 09:30 lab noted - Treatment Hospital Course: Detox Protocol Followed, Detoxed Safely, Responded well, Discharged Condition Good, Rehab Referral Accepted Patient has Accepted [facility] Referral [facility] - Medication Discharge Medications: Ambulatory Orders Escitalopram Oxalate [Lexapro -] 20 mg PO DAILY 08/25/18 traZODone HCL [Trazodone HCl] 150 mg PO HS 08/25/18 Alprazolam [Xanax] 2 mg PO BID 09/07/18 Diltiazem Cd [Cardizem Cd -] 120 mg PO DAILY 10/07/18 - Diagnosis (1) Opioid dependence with withdrawal Status: Acute (2) Sedative, hypnotic or anxiolytic abuse, uncomplicated Status: Acute (3) Substance induced mood disorder Status: Suspected - AMA Did Patient Leave Against Medical Advice: No
[2018-10-11] MEDS: PRENATAL VITAMINS W/ FOLIC ACID TABLET (FP) PO SCH (10:07)
[2018-10-11] MEDS: IBUPROFEN 400 MG TABLET (FP) PO PRN (10:08)
== END 2018-10-11 12:34 | disposition other institution (70) | DRG 773 ==
LOC: YASAS 08:14 → Y3N 10:51
PROVIDERS: ADMIT Surgery; ATTEND Surgery
PROC: HZ2ZZZZ Detoxification Services for Substance Abuse Treatment (ICD-10-PCS; principal; 2018-10-07)
DX: F11.23 Opioid dependence with withdrawal (principal); F13.230 Sedative, hypnotic or anxiolytic dependence with withdrawal, uncomplicated; F14.10 Cocaine abuse, uncomplicated; F12.10 Cannabis abuse, uncomplicated; F19.24 Other psychoactive substance dependence with psychoactive substance-induced mood disorder; F33.9 Major depressive disorder, recurrent, unspecified; F41.8 Other specified anxiety disorders; G47.00 Insomnia, unspecified; I48.2 Chronic atrial fibrillation; J45.909 Unspecified asthma, uncomplicated; R41.89 Other symptoms and signs involving cognitive functions and awareness; S05.8X2A Other injuries of left eye and orbit, initial encounter; X58.XXXA Exposure to other specified factors, initial encounter; Y93.89 Activity, other specified; Y92.89 Other specified places as the place of occurrence of the external cause; Y99.8 Other external cause status; Z91.19 Patient's noncompliance with other medical treatment and regimen
CPT/HCPCS: 36415; 80053; 81003; 85027; 86593; 87389; 93005; 93010

== ENCOUNTER 2018-10-11 12:49 | Inpatient (IN) | payer OTHER ==
[2018-10-11 13:22] VITALS: BP 103/63; PULSE 84; TEMP 97.8
[2018-10-11] MEDS ORDERED: guaiFENesin 200 MG/10 ML 10 ML UNIT-DOSE CUPS PO PRN (13:35)
[2018-10-11] MEDS ORDERED: NICOTINE 14 MG/24 HOURS TOPICAL PATCH TD PRN (13:35)
[2018-10-11] MEDS ORDERED: MAG HYDROX/AL HYDROX/SIMETH 30 ML UNIT-DOSE CUP PO PRN (13:35)
[2018-10-11] MEDS ORDERED: MAGNESIUM HYDROX 2400MG/30ML ORAL SUSPENSION 30 ML CUP PO PRN (13:35)
[2018-10-11] MEDS ORDERED: LOPERAMIDE HCL 2 MG CAPSULE PO PRN (13:35)
[2018-10-11] MEDS ORDERED: ACETAMINOPHEN 325 MG TABLET (FP) PO PRN (13:35)
[2018-10-11] MEDS ORDERED: P-EPHED 60MG/TRIPROLIDI 2.5MG TABLET PO PRN (13:35)
[2018-10-11] MEDS ORDERED: IBUPROFEN 400 MG TABLET (FP) PO PRN (13:35)
[2018-10-11] MEDS ORDERED: NICOTINE POLACRILEX 2 MG GUM BUC PRN (13:35)
[2018-10-11] MEDS ORDERED: MENTHOL/PHENOL 1 EACH UD MM PRN (13:35)
[2018-10-11] MEDS ORDERED: MAGNESIUM CITRATE 300 ML BOTTLE PO PRN (13:35)
--- NOTE | 2018-10-11 13:35 | HP ---
[facility] Rehab Assess/Revision - Admission History Admitted to Rehab from: [facility] Date of Admission to Rehab: 10/11/18 - Vital signs Vital Signs: Vital Signs Period Temp Pulse Resp BP Sys/Mendoza Pulse Ox Last 24 Hr 97.8 F 84 18 103/63 - Findings Detox History & Physical reviewed: Yes Concur with findings: Yes Comments/Additional Findings: transferred from detox to rehab admission as per protocol Inpatient Rehab Admission - Rehab Decision to Admit Inpatient rehab admission?: Yes - Initial Determination Are CD services needed?: Yes Free of communicable disease: Yes Not in need of hospitalization: Yes - Rehab Admission Criteria Previous failed treatment: Yes Poor recovery environment: Yes Comorbidities: Yes Lacks judgement: No Patient is meeting Inpatient Rehab admission criteria:: Yes
[2018-10-11] MEDS ORDERED: MELATONIN 5 MG TABLETS PO PRN (22:00)
[2018-10-11] MEDS ORDERED: THIAMINE HCL 100 MG TABLET (FP) PO SCH (22:00)
[2018-10-12] MEDS ORDERED: PRENATAL VITAMINS W/ FOLIC ACID TABLET (FP) PO SCH (10:00)
--- NOTE | 2018-10-12 16:01 | PN ---
[facility] Progress Note Note: PT WAS REFERRED HERE TO REHAB ON 10/11/18 AND PT DECLINED TO CONTINUE WITH REHAB TODAY STATING "I 'M GOING TO MY AUNT'S HOUSE, GET A ROOM AND GET A JOB". PT WAS SPOKEN TO AND ENCOURAGED TO STAY IN TREATMENT BY THIS INDEXER WELL HIS COUNSELOR, NIC GIBBS BUT PT INSISTED ON HIS PLAN ABOVE. PT UNDERSTANDS THE RISK OF LEAVING TREATMENT PREMATURELY TODAY. PT REPORTS HE HAS A PCP( PSYCHIATRIST) DR. BRICE ON [address], [place] FOR MEDICAL MANAGEMENT. REPORTS HE GOES TO [facility] FOR MEDICAL CARE WHEN NEEDED. [facility]. PT IS ALERT O X 3. DENIES S/H/I. Home Medications Medication Instructions Recorded Escitalopram Oxalate [Lexapro -] 20 mg PO DAILY 08/25/18 traZODone HCL [Trazodone HCl] 150 mg PO HS 08/25/18 Alprazolam [Xanax] 2 mg PO BID 09/07/18 Diltiazem Cd [Cardizem Cd -] 120 mg PO DAILY #30 cap.cd.24h 10/12/18 Naloxone HCl [Narcan] 4 mg NS ONCE #1 spray 10/13/18 Vital Signs (72 hours) 10/11/18 10/12/18 10/12/18 13:21 00:30 03:30 Temperature 97.8 F Pulse Rate 84 Respiratory 18 16 16 Rate Blood Pressure 103/63 10/12/18 06:49 Temperature Pulse Rate Respiratory 16 Rate Blood Pressure NAD PLAN:FOLLOW UP WITH CD AFTERCARE RECOMMENDATIONS FOLLOW UP WITH PSYCH/MEDICAL MANAGEMENT WITHIN 1 WEEK AFTER DISCHARGE.
== END 2018-10-12 14:05 | disposition left against medical advice (07) | DRG 770 ==
LOC: YASAS 12:49 → Y5N 12:50
PROVIDERS: ADMIT Neuromusculoskeletal Medicine & OMM; ATTEND Neuromusculoskeletal Medicine & OMM
PROC: HZ42ZZZ Group Counseling for Substance Abuse Treatment, Cognitive-Behavioral (ICD-10-PCS; principal; 2018-10-11)
DX: F11.20 Opioid dependence, uncomplicated (principal); F13.20 Sedative, hypnotic or anxiolytic dependence, uncomplicated; I48.91 Unspecified atrial fibrillation; J45.909 Unspecified asthma, uncomplicated; R41.89 Other symptoms and signs involving cognitive functions and awareness

== ENCOUNTER 2018-10-15 08:38 | Inpatient (IN) | payer OTHER ==
[2018-10-15 09:24] VITALS: BMI 32.1
--- NOTE | 2018-10-15 09:54 | HP ---
COWS - Scale Resting Pulse: 1= [place] 81-100 Sweatin= Chills/Flushing Restless Observation: 3= Extraneous Movement Pupil Size: 1= Pupils >than Normal Bone or Joint Aches: 0= None Runny Nose/ Eye Tearin= Runny Nose/Eyes GI Upset > 30mins: 2= Nausea/Diarrhea Tremor Observation: 1= Tremor [place], Not Seen Yawning Observation: 0= None Anxiety or Irritability: 4=Extreme Anxiety Goose Flesh Skin: 0=Smooth Skin COWS Score: 15 CIWA Score Nausea/Vomitin Muscle Tremors: 1-None Visible, but [place] Anxiety: 4-Mod. Anxious/Guarded Agitation: 4-Moderately Restless Paroxysmal Sweats: 2 Orientation: 0-Oriented Tacttile Disturbances: 0-None Auditory Disturbances: 0-None Visual Disturbances: 0-None Headache: 3-Moderate CIWA-Ar Total Score: 17 - Admission Criteria OASAS Guidelines: Admission for Medically Managed Detox: Requires at least one of the followin. CIWA greater than 12 2. Seizures within the past 24 hours 3. Delirium tremens within the past 24 hours 4. Hallucinations within the past 24 hours 5. Acute intervention needed for co occurring medical disorder 6. Acute intervention needed for co occurring psychiatric disorder 7. Severe withdrawal that cannot be handled at a lower level of care (continued vomiting, continued diarrhea, abnormal vital signs) requiring intravenous medication and/or fluids 8. Admission ROS [facility] Allergies/Adverse Reactions: Allergies Allergy/AdvReac Type Severity Reaction Status Date / Time risperidone Allergy Severe Verified 10/15/18 09:15 History of Present Illness: pt here requesting detox from opiate and benzo use , reports taking meds as rx , reports relapse after leaving this facility , usded 4 bags heroin on Friday10/13/18 , denies IVDU , current symptoms as above . went to residential [place], left , returned to this facility , completed detox , left rehab after 1 day states due to anxiety . OD x 1 , MMTP 18 mo ago at [facility] , highest dose 100 mg , stopped going " I was tired of going every day " , moved to [place] , sober x 4 months , relapsed upon return to [place] . tobacco_ denies SHX : homeless , unemployed , finances habit through " friends that I know " , denies legal issues Search Terms: anju severino, 1985 Search Date: 10/15/2018 09:51:08 AM The Drug Utilization Report below displays all of the controlled substance prescriptions, if any, that your patient has filled in the last twelve months. The information displayed on this report is compiled from pharmacy submissions to the Department, and accurately reflects the information as submitted by the pharmacies. This report was requested by: Bhavana Palomino | Reference #: [id number] Others' Prescriptions Patient Name: Anju Severino Date: 1985 Address: [address] [place] [address] Sex: Male Rx Written Rx Dispensed Drug Quantity Days Supply Prescriber Name 10/01/2018 10/01/2018 alprazolam 2 mg tablet 60 30 Benavides, Fuentes Langley MD 08/20/2018 08/20/2018 alprazolam 2 mg tablet 60 30 Benavides, Fuentes Langley MD 07/17/2018 07/17/2018 alprazolam 2 mg tablet 60 30 Benavides, Fuentes Langley MD 06/16/2018 06/16/2018 alprazolam 2 mg tablet 60 30 Benavides, Fuentes Langley MD 04/28/2018 05/07/2018 alprazolam 2 mg tablet 60 30 Benavides, Fuentes Langley MD 03/19/2018 03/19/2018 alprazolam 2 mg tablet 60 30 Benavides, Fuentes Langley MD 02/13/2018 02/13/2018 alprazolam 2 mg tablet 60 30 Benavides, Fuentes Langley MD 12/19/2017 12/19/2017 alprazolam 2 mg tablet 60 30 Benavides, Fuentes Langley MD 11/21/2017 11/21/2017 alprazolam 2 mg tablet 60 30 Benavides, Fuentes Langley MD 11/17/2017 11/17/2017 alprazolam 1 mg tablet 20 5 Caden Edmond MD 10/21/2017 10/21/2017 alprazolam 2 mg tablet 60 30 Benavides, Fuentes Langley MD Patient Name: Anju Severino Date: 1985 Address: [address] [facility] [address] [place] [id number] Sex: Male Rx Written Rx Dispensed Drug Quantity Days Supply Prescriber Name 12/09/2017 12/11/2017 alprazolam 2 mg tablet 16 8 Arlyn Barlow Exam Limitations: Clinical Condition - Ebola screening Have you traveled outside of the country in the last 21 days: No (N) Have you had contact with anyone from an Ebola affected area: No Do you have a fever: No - Review of Systems Constitutional: See HPI EENT: reports: See HPI Respiratory: reports: No Symptoms reported Cardiac: reports: No Symptoms Reported GI: reports: See HPI, Diarrhea : reports: No Symptoms Reported Musculoskeletal: reports: See HPI Integumentary: reports: No Symptoms Reported Neuro: reports: Headache Endocrine: reports: No Symptoms Reported Psychiatric: reports: Orientated x3, Agitated, Anxious Patient History - Patient Medical History Hx Anemia: No Hx Asthma: No Hx Chronic Obstructive Pulmonary Disease (COPD): No Hx Cancer: No Hx Cardiac Disorders: Yes (Atrial fibrillation) Hx Congestive Heart Failure: No Hx Hypertension: No Hx Hypercholesterolemia: No Hx Pacemaker: No HX Cerebrovascular Accident: No Hx Seizures: Yes (Once due to no benxodiazepine.) Hx Dementia: No Hx Diabetes: No Hx Gastrointestinal Disorders: No Hx Liver Disease: No Hx Genitourinary Disorders: No Hx Sexually Transmitted Disorders: No Hx Renal Disease (ESRD): No Hx Thyroid Disease: No Hx Human Immunodeficiency Virus (HIV): No (last 08/25/18 negative) Hx Hepatitis C: No Hx Depression: Yes Hx Suicide Attempt: No Hx Bipolar Disorder: No Hx Schizophrenia: No - Patient Surgical History Past Surgical History: No Hx Neurologic Surgery: No Hx Cataract Extraction: No Hx Cardiac Surgery: No Hx Lung Surgery: No Hx Breast Surgery: No Hx Breast Biopsy: No Hx Abdominal Surgery: No Hx Appendectomy: No Hx Cholecystectomy: No Hx Genitourinary Surgery: No Hx Section: No Hx Orthopedic Surgery: No Anesthesia Reaction: No - PPD History Date: 08/27/18 Results: not read - Smoking Cessation Smoking history: Never smoked Have you smoked in the past 12 months: No Aproximately how many cigarettes per day: 0 Hx Chewing Tobacco Use: No - Substances abused Heroin Substance route: Inhalation Frequency: Daily Amount used: 40$- 4BAGS Age of first use: 26 Date of last use: 10/13/18 Alprazolam (Xanax) Substance route: Oral Frequency: Daily Amount used: 4 mgs Age of first use: 31 Date of last use: 10/14/18 Family Disease History - Family Disease History Family Disease History: Diabetes: Father, Mother Admission Physical Exam [facility] - Vital Signs Vital Signs: Vital Signs - 24 hr 10/15/18 10/15/18 09:18 09:32 Temperature 97.8 F 97.8 F Pulse Rate 82 82 Respiratory 18 18 Rate Blood Pressure 128/92 128/92 - Physical General Appearance: Yes: Mild Distress, Moderate Distress, Anxious HEENTM: Yes: EOMI, Hearing grossly Normal, Normocephalic, Normal Voice Respiratory: Yes: Chest Non-Tender, Lungs Clear, Normal Breath Sounds Neck: Yes: No masses,lesions,Nodules, Trachea in good position Cardiology: Yes: Regular Rhythm, Regular Rate, S1, S2 Abdominal: Yes: Non Tender, Soft Genitourinary: Yes: Within Normal Limits Back: Yes: Normal Inspection Musculoskeletal: Yes: Gait Steady Extremities: Yes: Normal Range of Motion, Non-Tender Neurological: Yes: Alert, Motor Strength 5/5 Integumentary: Yes: Warm, Track Chacon (lg UE from IVDU , stopped approx 1 year ago), Other (R UE lipoma froearm medial side extensive track chacon lg UE froeamrs , right side of neck scar left anterior pretibially from previous injury) - Diagnostic (1) Opioid dependence with withdrawal Current Visit: Yes Status: Acute (2) Cannabis abuse Current Visit: Yes Status: Chronic (3) 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 Breathalyzer - Breathalyzer Breathalyzer: 0 Urine Drug Screen - Test Device Lot number: [id number] Expiration date: 07/09/20 - Control Is test valid?: Yes - Results Drug screen NEGATIVE: No Urine drug screen results: THC-Marijuana, MOP-Opiates, BZO-Benzodiazepines Inpatient Rehab Admission - Rehab Decision to Admit Inpatient rehab admission?: No
[2018-10-15] MEDS ORDERED: cloNIDine HCL 0.1 MG TABLET PO PRN (10:03)
[2018-10-15] MEDS ORDERED: MAGNESIUM CITRATE 300 ML BOTTLE PO PRN (10:03)
[2018-10-15] MEDS ORDERED: MENTHOL/PHENOL 1 EACH UD MM PRN (10:03)
[2018-10-15] MEDS ORDERED: IBUPROFEN 400 MG TABLET (FP) PO PRN (10:03)
[2018-10-15] MEDS ORDERED: DICYCLOMINE HCL 10 MG CAPSULE PO PRN (10:03)
[2018-10-15] MEDS ORDERED: ACETAMINOPHEN 325 MG TABLET (FP) PO PRN ×2 (10:03)
[2018-10-15] MEDS ORDERED: MAGNESIUM HYDROX 2400MG/30ML ORAL SUSPENSION 30 ML CUP PO PRN (10:03)
[2018-10-15] MEDS ORDERED: MAG HYDROX/AL HYDROX/SIMETH 30 ML UNIT-DOSE CUP PO PRN (10:03)
[2018-10-15] MEDS ORDERED: METHADONE HCL 5 MG TABLET (FOR DETOX USE ONLY) PO ONE (10:25)
[2018-10-15] MEDS: diazePAM 5 MG TABLET PO PRN (11:05)
[2018-10-15] MEDS: diazePAM 5 MG TABLET PO SCH ×2 (13:56→23:01)
[2018-10-15] MEDS: THIAMINE HCL 100 MG TABLET (FP) PO SCH (23:01)
[2018-10-15] MEDS: traZODone HCL 100 MG TABLET (FP) PO PRN (23:02)
[2018-10-16] MEDS: diazePAM 5 MG TABLET PO SCH ×3 (05:58→22:24)
[2018-10-16] MEDS ORDERED: METHADONE HCL 5 MG TABLET (FOR DETOX USE ONLY) PO ONE ×2 (10:00→11:50)
[2018-10-16] MEDS: PRENATAL VITAMINS W/ FOLIC ACID TABLET (FP) PO SCH (10:40)
[2018-10-16] MEDS: diazePAM 5 MG TABLET PO PRN (11:17)
--- NOTE | 2018-10-16 13:23 | PN ---
[facility] CIWA - CIWA Score Nausea/Vomitin-No Nausea/No Vomiting Muscle Tremors: 3 Anxiety: 3 Agitation: 3 Paroxysmal Sweats: 3 Orientation: 0-Oriented Tacttile Disturbances: 0-None Auditory Disturbances: 0-None Visual Disturbances: 0-None Headache: 0-None Present CIWA-Ar Total Score: 12 [facility] COWS - Scale Resting Pulse: 0= [place] 80 or Below Sweatin= Streaming Sweat Restless Observation: 1= Difficult to Sit Still Pupil Size: 0= Normal to Room Light Bone or Joint Aches: 2= Severe Diffuse Aches Runny Nose/ Eye Tearin= None GI Upset > 30mins: 2= Nausea/Diarrhea Tremor Observation of Outstretched Hands: 2= Slight Tremor Visible Yawning Observation: 0= None Anxiety or Irritability: 2=Irritable/Anxious Goose Flesh Skin: 0=Smooth Skin COWS Score: 13 [facility] Progress Note (SOAP) Subjective: upset stomach diarrhea sweats interrupted sleep agitation Objective: 10/16/18 13:26 Vital Signs Temperature 97.9 F 10/16/18 09:56 Pulse Rate 77 10/16/18 09:56 Respiratory Rate 18 10/16/18 09:56 Blood Pressure 103/66 10/16/18 09:56 O2 Sat by Pulse Oximetry (%) labs pending aaox3 ambulating no acute distress Assessment: 10/16/18 13:27 withdrawal sx Plan: continue detox with revised methadone and valium detox regimen bently prn increase fluids
[2018-10-16] MEDS ORDERED: diazePAM 5 MG TABLET PO SCH (14:00)
--- NOTE | 2018-10-16 14:14 | CONSULT ---
[facility] Psychiatric Consult - Data Date of interview: 10/16/18 Admission source: Self-referred Identifying data: Mr Severino is a 33 years old , father of a 13 years old daughter, homeless seeking detox treatment for opioid Substance Abuse History: Reports history of heroin use. Refer to addiction counselor's summary for further information Medical History: Significant for history of atrial fibrillation and substance related seizure. Psychiatric History: Reports that his first psychiatric contact was in January 2017 following the of his brother in November 2016 from an accidental overdose. He was admitted to [facility] for depression and suicidal attempt by trying to jump in front of traffic. He was kept for a month and treated with Lexapro 10 mg po daily and Risperdal 2 mg po HS. After discharge, he was referred to [facility] where he is still receiving outpatient psychiatric treatment. He is currently prescribed Lexapro 20 mg po daily and Trazadone 100 mg po HS. He does not to be continued on his medications at this time. Denies previous suicidal attempt. At present, reports feeling anxious and sleeping poorly Physical/Sexual Abuse/Trauma History: Denies emotional, physical or sexual abuse as well as DV relationship. No service Additional Comment: Reports history of 3 previous misdemeanor arrestson charges of DWI and possession of narcotic. No probation Mental Status Exam - Mental Status Exam Alert and Oriented to: Time, Place, Person Cognitive Function: Fair Patient Appearance: Well Groomed Mood: Anxious Affect: Appropriate Patient Behavior: Cooperative Speech Pattern: Clear Voice Loudness: Normal Thought Process: Intact, Goal Oriented Thought Disorder: Not Present Hallucinations: Denies Suicidal Ideation: Denies Homicidal Ideation: Denies Insight/Judgement: Poor Sleep: Poorly Appetite: Fair Muscle strength/Tone: Normal Gait/Station: Normal Psychiatric Findings - Problem List ([place] 1, 2,3) (1) MDD (major depressive disorder) Current Visit: No Status: Chronic (2) Substance-induced anxiety disorder Current Visit: Yes Status: Acute (3) Substance-induced sleep disorder Current Visit: No Status: Acute (4) Opioid dependence with withdrawal Current Visit: Yes Status: Acute (5) History of atrial fibrillation Current Visit: No Status: Resolved - Initial Treatment Plan Initial Treatment Plan: 1) Start Belsomra 10 mg po HS prn for insomnia. 2) Continue inpatient detoxification
[2018-10-16] MEDS ORDERED: SUVOREXANT 10 MG TABLET PO PRN (22:00)
[2018-10-16] MEDS: traZODone HCL 100 MG TABLET (FP) PO PRN (22:24)
[2018-10-16] MEDS: THIAMINE HCL 100 MG TABLET (FP) PO SCH (22:24)
[2018-10-17] MEDS ORDERED: diazePAM 5 MG TABLET PO ONE (06:00)
[2018-10-17] MEDS: diazePAM 5 MG TABLET PO SCH ×3 (07:15→22:23)
[2018-10-17] MEDS ORDERED: METHADONE HCL 5 MG TABLET (FOR DETOX USE ONLY) PO SCH (10:00)
[2018-10-17] MEDS ORDERED: METHADONE HCL 5 MG TABLET (FOR DETOX USE ONLY) PO ONE (10:00)
[2018-10-17] MEDS ORDERED: METHADONE HCL 10 MG TABLET (FOR DETOX USE ONLY) PO ONE ×2 (10:00)
[2018-10-17] MEDS: diazePAM 5 MG TABLET PO PRN (10:08)
[2018-10-17] MEDS: PRENATAL VITAMINS W/ FOLIC ACID TABLET (FP) PO SCH (10:08)
--- NOTE | 2018-10-17 12:05 | PN ---
S CIWA - CIWA Score Nausea/Vomitin-No Nausea/No Vomiting Muscle Tremors: 2 Anxiety: 2 Agitation: 0-Normal Activity Paroxysmal Sweats: 4-Forehead w/Sweat Beads Orientation: 0-Oriented Tacttile Disturbances: 0-None Auditory Disturbances: 0-None Visual Disturbances: 0-None Headache: 1-Very Mild CIWA-Ar Total Score: 9 [facility] COWS - Scale Resting Pulse: 1= [place] 81-100 Sweatin= Chills/Flushing Restless Observation: 1= Difficult to Sit Still Pupil Size: 0= Normal to Room Light Bone or Joint Aches: 2= Severe Diffuse Aches Runny Nose/ Eye Tearin= None GI Upset > 30mins: 0= None Tremor Observation of Outstretched Hands: 2= Slight Tremor Visible Yawning Observation: 1= 1-2x During Session Anxiety or Irritability: 2=Irritable/Anxious Goose Flesh Skin: 0=Smooth Skin COWS Score: 10 S Progress Note (SOAP) Subjective: c/o sweats, anxiety, headache, tremor, and body aches. Objective: 10/17/18 12:03 Vital Signs 10/17/18 10/17/18 08:25 09:57 Temperature 97.9 F 97.7 F Pulse Rate 69 81 Respiratory 18 18 Rate Blood Pressure 97/58 L 115/64 Assessment: 10/17/18 12:04 AOX3, in no distress Full ROM, ambulating in the unit. withdrawal symptoms persist. Plan: continue detox increase fluids.
[2018-10-17] MEDS: THIAMINE HCL 100 MG TABLET (FP) PO SCH (22:23)
[2018-10-17] MEDS: traZODone HCL 100 MG TABLET (FP) PO PRN (22:23)
[2018-10-17] MEDS: MELATONIN 5 MG TABLETS PO PRN (22:24)
[2018-10-18] MEDS ORDERED: diazePAM 5 MG TABLET PO ONE (06:00)
[2018-10-18] MEDS ORDERED: METHADONE HCL 5 MG TABLET (FOR DETOX USE ONLY) PO ONE (06:00)
[2018-10-18] MEDS ORDERED: METHADONE HCL 10 MG TABLET (FOR DETOX USE ONLY) PO ONE (10:00)
[2018-10-18] MEDS ORDERED: METHADONE HCL 5 MG TABLET (FOR DETOX USE ONLY) PO SCH (10:00)
[2018-10-18] MEDS: PRENATAL VITAMINS W/ FOLIC ACID TABLET (FP) PO SCH (10:27)
--- NOTE | 2018-10-18 17:23 | PN ---
[facility] CIWA - CIWA Score Nausea/Vomitin-No Nausea/No Vomiting Muscle Tremors: None Anxiety: 1-Mildly Anxious Agitation: 1-Slight > Activity Paroxysmal Sweats: 2 Orientation: 0-Oriented Tacttile Disturbances: 0-None Auditory Disturbances: 0-None Visual Disturbances: 0-None Headache: 0-None Present CIWA-Ar Total Score: 4 S COWS - Scale Resting Pulse: 0= [place] 80 or Below Sweatin= No chills or Flushing Restless Observation: 0= Sits Still Pupil Size: 0= Normal to Room Light Bone or Joint Aches: 0= None Runny Nose/ Eye Tearin= None GI Upset > 30mins: 2= Nausea/Diarrhea Tremor Observation of Outstretched Hands: 0= None Yawning Observation: 0= None Anxiety or Irritability: 1=Feels Anxious/Irritable Goose Flesh Skin: 0=Smooth Skin COWS Score: 3 [facility] Progress Note (SOAP) Subjective: Interrupted sleep Objective: 10/18/18 17:20 Last Vital Signs Temp Pulse Resp BP Pulse Ox 96.8 F L 80 16 120/72 10/18/18 13:51 10/18/18 13:51 10/18/18 13:51 10/18/18 13:51 Labs reviewed dated 10/07/18: non significant Assessment: 10/18/18 17:20 Withdrawal symptoms Plan: Continue detox Encouraged PO water hydration Scheduled for discharge tomorrow
[2018-10-18] MEDS ORDERED: hydrOXYzine PAMOATE 50 MG CAPSULE (FP) PO PRN (19:23)
--- NOTE | 2018-10-18 19:29 | PN ---
[facility] Progress Note Note: patient is anxious Vital Signs Temperature 97.9 F 10/18/18 18:23 Pulse Rate 67 10/18/18 18:23 Respiratory Rate 18 10/18/18 18:23 Blood Pressure 133/63 10/18/18 18:23 O2 Sat by Pulse Oximetry (%) will give vistaril 50 mgs po q 4 hrs prn for anxiety close monitoring
[2018-10-18] MEDS: traZODone HCL 100 MG TABLET (FP) PO PRN (22:10)
[2018-10-18] MEDS: MELATONIN 5 MG TABLETS PO PRN (22:10)
[2018-10-18] MEDS: THIAMINE HCL 100 MG TABLET (FP) PO SCH (22:10)
[2018-10-19] MEDS ORDERED: METHADONE HCL 5 MG TABLET (FOR DETOX USE ONLY) PO ONE (06:00)
--- NOTE | 2018-10-19 11:02 | DS ---
[facility] Detox Discharge Summary Admission Date: 10/15/18 Discharge Date: 10/19/18 - History Present History: Cannabis Dependence, Cocaine Dependence, Opioid Dependence, Sedative Dependence - Physical Exam Results Vital Signs: Vital Signs Temperature 97.7 F 10/19/18 09:10 Pulse Rate 87 10/19/18 09:10 Respiratory Rate 18 10/19/18 09:10 Blood Pressure 116/78 10/19/18 09:10 O2 Sat by Pulse Oximetry (%) - Treatment Hospital Course: Detox Protocol Followed, Detoxed Safely, Responded well, Discharged Condition Good, Rehab Referral Accepted - Medication Discharge Medications: Ambulatory Orders traZODone HCL [Trazodone HCl] 150 mg PO HS 08/25/18 - Diagnosis (1) Opioid dependence with withdrawal Current Visit: Yes Status: Chronic (2) Substance-induced anxiety disorder Current Visit: Yes Status: Acute (3) Cannabis abuse Current Visit: Yes Status: Chronic (4) 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 (5) Depression Current Visit: No Status: Acute (6) Insomnia secondary to depression with anxiety Current Visit: No Status: Acute (7) Left orbit trauma Current Visit: No Status: Acute (8) Sedative, hypnotic or anxiolytic abuse Current Visit: Yes Status: Chronic (9) Substance-induced anxiety disorder Current Visit: No Status: Acute (10) Substance-induced sleep disorder Current Visit: No Status: Acute (11) Afib Current Visit: No Status: Chronic Qualifiers: Atrial fibrillation type: unspecified Qualified Code(s): I48.91 - Unspecified atrial fibrillation (12) Bronchial asthma Current Visit: No Status: Chronic Qualifiers: Asthma severity: unspecified severity Asthma persistence: unspecified Asthma complication type: uncomplicated Qualified Code(s): J45.909 - Unspecified asthma, uncomplicated (13) Insomnia Current Visit: No Status: Chronic (14) MDD (major depressive disorder) Current Visit: No Status: Chronic (15) Non-compliance Current Visit: No Status: Chronic (16) Opioid dependence Current Visit: No Status: Chronic Qualifiers: Substance use status: uncomplicated Qualified Code(s): F11.20 - Opioid dependence, uncomplicated (17) Substance induced mood disorder Current Visit: No Status: Suspected (18) History of atrial fibrillation Current Visit: No Status: Resolved - AMA Did Patient Leave Against Medical Advice: No ([facility])
[2018-10-19] MEDS: PRENATAL VITAMINS W/ FOLIC ACID TABLET (FP) PO SCH (11:09)
[2018-10-19 13:32] VITALS: BP 121/56; PULSE 84; TEMP 97.8
== END 2018-10-19 13:32 | disposition home or self-care (01) | DRG 773 ==
LOC: YASAS 08:38 → Y6N 10:18
PROVIDERS: ADMIT Surgery; ATTEND Surgery
PROC: HZ2ZZZZ Detoxification Services for Substance Abuse Treatment (ICD-10-PCS; principal; 2018-10-15)
DX: F11.23 Opioid dependence with withdrawal (principal); F13.230 Sedative, hypnotic or anxiolytic dependence with withdrawal, uncomplicated; F12.10 Cannabis abuse, uncomplicated; F19.24 Other psychoactive substance dependence with psychoactive substance-induced mood disorder; F19.280 Other psychoactive substance dependence with psychoactive substance-induced anxiety disorder; F19.282 Other psychoactive substance dependence with psychoactive substance-induced sleep disorder; F51.05 Insomnia due to other mental disorder; F32.9 Major depressive disorder, single episode, unspecified; J45.909 Unspecified asthma, uncomplicated; G47.00 Insomnia, unspecified; Z86.79 Personal history of other diseases of the circulatory system; Z91.14 Patient's other noncompliance with medication regimen; Z86.69 Personal history of other diseases of the nervous system and sense organs

== ENCOUNTER 2018-10-19 13:51 | Inpatient (IN) | payer OTHER ==
--- NOTE | 2018-10-19 13:15 | HP ---
[facility] Rehab Assess/Revision - Admission History Admitted to Rehab from: [facility] - Findings Detox History & Physical reviewed: Yes Concur with findings: Yes Inpatient Rehab Admission - Rehab Decision to Admit Inpatient rehab admission?: Yes - Initial Determination Are CD services needed?: Yes Free of communicable disease: Yes Not in need of hospitalization: Yes - Rehab Admission Criteria Previous failed treatment: Yes Poor recovery environment: Yes Comorbidities: Yes Lacks judgement: Yes Patient is meeting Inpatient Rehab admission criteria:: Yes
[~2018-10-19 13:51] MED LIST: ACETAMINOPHEN 325 MG TABLET (FP) PO PRN; LOPERAMIDE HCL 2 MG CAPSULE PO PRN; MAG HYDROX/AL HYDROX/SIMETH 30 ML UNIT-DOSE CUP PO PRN; MAGNESIUM CITRATE 300 ML BOTTLE PO PRN; MAGNESIUM HYDROX 2400MG/30ML ORAL SUSPENSION 30 ML CUP PO PRN; MENTHOL/PHENOL 1 EACH UD MM PRN; NICOTINE POLACRILEX 4 MG GUM BUC PRN; P-EPHED 60MG/TRIPROLIDI 2.5MG TABLET PO PRN; guaiFENesin 200 MG/10 ML 10 ML UNIT-DOSE CUPS PO PRN
[2018-10-19] MEDS: THIAMINE HCL 100 MG TABLET (FP) PO SCH (21:20)
[2018-10-19] MEDS: MELATONIN 5 MG TABLETS PO PRN (21:20)
[2018-10-19] MEDS: hydrOXYzine PAMOATE 50 MG CAPSULE (FP) PO PRN (21:21)
[2018-10-19] MEDS: IBUPROFEN 400 MG TABLET (FP) PO PRN (21:30)
--- NOTE | 2018-10-20 07:58 | CONSULT ---
[facility] Psychiatric Consult - Data Date of interview: 10/20/18 Admission source: 6N Identifying data: Mr Severino is a 33 years old , father of a 13 years old daughter, homeless seeking detox treatment for opioid Substance Abuse History: Reports history of heroin use. Refer to addiction counselor's summary for further information Medical History: Significant for history of atrial fibrillation and substance related seizure. Psychiatric History: Reports that his first psychiatric contact was in January 2017 following the of his brother in November 2016 from an accidental overdose. He was admitted to [facility] for depression and suicidal attempt by trying to jump in front of traffic. He was kept for a month and treated with Lexapro 10 mg po daily and Risperdal 2 mg po HS. After discharge, he was referred to [facility] where he is still receiving outpatient psychiatric treatment. He is currently prescribed Lexapro 20 mg po daily and Trazadone 100 mg po HS. Patient was seen by tag writer on 10/16/18 while in detox and he did not want to continue on his medications. He was ordered Belsomra 10 mg po HS prn for insomnia. During this admission in rehab, he requests to resume Trazadone along with Belsomra but still unwilling to resume Lexapro. Denies previous suicidal attempt. At present, cotinue to report feeling anxious and sleeping poorly Physical/Sexual Abuse/Trauma History: Denies emotional, physical or sexual abuse as well as DV relationship. No service Additional Comment: Reports history of 3 previous misdemeanor arrestson charges of DWI and possession of narcotic. No probation Mental Status Exam - Mental Status Exam Alert and Oriented to: Time, Place, Person Cognitive Function: Fair Patient Appearance: Well Groomed Mood: Anxious Affect: Appropriate Patient Behavior: Cooperative Speech Pattern: Clear Voice Loudness: Normal Thought Process: Intact Hallucinations: Denies Suicidal Ideation: Denies Insight/Judgement: Fair Sleep: Poorly Appetite: Poor Muscle strength/Tone: Normal Gait/Station: Normal Psychiatric Findings - Problem List ([place] 1, 2,3) (1) MDD (major depressive disorder) Current Visit: No Status: Chronic (2) Substance-induced anxiety disorder Current Visit: No Status: Acute (3) Substance-induced sleep disorder Current Visit: No Status: Acute (4) Bronchial asthma Current Visit: No Status: Chronic Qualifiers: Asthma severity: unspecified severity Asthma persistence: unspecified Asthma complication type: uncomplicated Qualified Code(s): J45.909 - Unspecified asthma, uncomplicated (5) History of atrial fibrillation Current Visit: No Status: Resolved - Initial Treatment Plan Initial Treatment Plan: 1) Continue Belsomra 10 mg po HS prn for insomnia. 2) Resume Trazadone 100 mg po HS. 3) Continue inpatient rehabilitation
[2018-10-20] MEDS: NICOTINE 21 MG/24 HOURS TOPICAL PATCH TD SCH (11:18)
[2018-10-20] MEDS: PRENATAL VITAMINS W/ FOLIC ACID TABLET (FP) PO SCH (11:18)
[2018-10-20] MEDS: THIAMINE HCL 100 MG TABLET (FP) PO SCH (21:22)
[2018-10-20] MEDS: MELATONIN 5 MG TABLETS PO PRN (21:23)
[2018-10-20] MEDS: hydrOXYzine PAMOATE 50 MG CAPSULE (FP) PO PRN (21:24)
[2018-10-21] MEDS: PRENATAL VITAMINS W/ FOLIC ACID TABLET (FP) PO SCH (10:34)
[2018-10-21] MEDS: NICOTINE 21 MG/24 HOURS TOPICAL PATCH TD SCH (10:34)
[2018-10-21] MEDS: traZODone HCL 50 MG TABLET (FP) PO SCH (21:31)
[2018-10-21] MEDS: THIAMINE HCL 100 MG TABLET (FP) PO SCH (21:31)
[2018-10-21] MEDS: MELATONIN 5 MG TABLETS PO PRN (21:32)
[2018-10-22] MEDS: NICOTINE 21 MG/24 HOURS TOPICAL PATCH TD SCH (10:59)
[2018-10-22] MEDS: PRENATAL VITAMINS W/ FOLIC ACID TABLET (FP) PO SCH (11:00)
--- NOTE | 2018-10-22 15:52 | PN ---
S Progress Note Note: MET WITH MR MIRANDA TODAY WHO REQUESTED TO BE ON SUBOXONE. D/W WILL DO UDS TODAY AND FOLLOW UP WITH RESULT. START SUBOXONE HERE AND EVALUATE FOR LAST MODEL MAKER TREATMENT AFTER DISCHARGE. WILL MEET WITH HIS COUNSELOR FOR AFTERCARE ARRANGEMENT.
[2018-10-22] MEDS: traZODone HCL 50 MG TABLET (FP) PO SCH (21:32)
[2018-10-22] MEDS: THIAMINE HCL 100 MG TABLET (FP) PO SCH (21:32)
[2018-10-22] MEDS: SUVOREXANT 10 MG TABLET PO PRN (21:33)
[2018-10-23] MEDS: IBUPROFEN 400 MG TABLET (FP) PO PRN (08:27)
[2018-10-23] MEDS: NICOTINE 21 MG/24 HOURS TOPICAL PATCH TD SCH (10:13)
[2018-10-23] MEDS: PRENATAL VITAMINS W/ FOLIC ACID TABLET (FP) PO SCH (10:13)
[2018-10-23] MEDS: traZODone HCL 50 MG TABLET (FP) PO SCH (21:36)
[2018-10-23] MEDS: THIAMINE HCL 100 MG TABLET (FP) PO SCH (21:36)
[2018-10-23] MEDS: SUVOREXANT 10 MG TABLET PO PRN (21:37)
[2018-10-24] MEDS: PRENATAL VITAMINS W/ FOLIC ACID TABLET (FP) PO SCH (10:55)
[2018-10-24] MEDS: NICOTINE 21 MG/24 HOURS TOPICAL PATCH TD SCH (10:55)
--- NOTE | 2018-10-24 15:20 | PN ---
[facility] Progress Note Note: Psychiatry Attending's note : Called for renewal of belsomra. Chart reviewed. Dr Mcekon's note : read. No report of adverse effects. Medication well tolerated. Belsomra 10 mg po hs prn. Resumed at patient's request.
[2018-10-24] MEDS: THIAMINE HCL 100 MG TABLET (FP) PO SCH (21:27)
[2018-10-24] MEDS: traZODone HCL 50 MG TABLET (FP) PO SCH (21:27)
[2018-10-24] MEDS: MELATONIN 5 MG TABLETS PO PRN (21:27)
[2018-10-24] MEDS: SUVOREXANT 10 MG TABLET PO PRN (21:28)
[2018-10-25] MEDS: PRENATAL VITAMINS W/ FOLIC ACID TABLET (FP) PO SCH (10:05)
[2018-10-25] MEDS: NICOTINE 21 MG/24 HOURS TOPICAL PATCH TD SCH (10:06)
[2018-10-25] MEDS: THIAMINE HCL 100 MG TABLET (FP) PO SCH (21:17)
[2018-10-25] MEDS: MELATONIN 5 MG TABLETS PO PRN (21:18)
[2018-10-25] MEDS: traZODone HCL 50 MG TABLET (FP) PO SCH (21:18)
[2018-10-25] MEDS: SUVOREXANT 10 MG TABLET PO PRN (21:18)
[2018-10-26] MEDS: PRENATAL VITAMINS W/ FOLIC ACID TABLET (FP) PO SCH (11:00)
[2018-10-26] MEDS: NICOTINE 21 MG/24 HOURS TOPICAL PATCH TD SCH (11:01)
[2018-10-26] MEDS: traZODone HCL 50 MG TABLET (FP) PO SCH (21:17)
[2018-10-26] MEDS: THIAMINE HCL 100 MG TABLET (FP) PO SCH (21:17)
[2018-10-26] MEDS: MELATONIN 5 MG TABLETS PO PRN (21:18)
[2018-10-26] MEDS: SUVOREXANT 10 MG TABLET PO PRN (21:20)
[2018-10-27] MEDS: PRENATAL VITAMINS W/ FOLIC ACID TABLET (FP) PO SCH (10:09)
[2018-10-27] MEDS: NICOTINE 21 MG/24 HOURS TOPICAL PATCH TD SCH (10:09)
[2018-10-27] MEDS: THIAMINE HCL 100 MG TABLET (FP) PO SCH (21:24)
[2018-10-27] MEDS: MELATONIN 5 MG TABLETS PO PRN (21:24)
[2018-10-27] MEDS: SUVOREXANT 10 MG TABLET PO PRN (21:25)
[2018-10-27] MEDS: traZODone HCL 50 MG TABLET (FP) PO SCH (21:25)
[2018-10-28] MEDS: NICOTINE 21 MG/24 HOURS TOPICAL PATCH TD SCH (10:14)
[2018-10-28] MEDS: PRENATAL VITAMINS W/ FOLIC ACID TABLET (FP) PO SCH (10:14)
--- NOTE | 2018-10-28 10:55 | PN ---
BHS COWS - Scale Resting Pulse: 0= [place] 80 or Below Sweatin= Chills/Flushing Restless Observation: 3= Extraneous Movement Pupil Size: 0= Normal to Room Light Bone or Joint Aches: 0= None Runny Nose/ Eye Tearin= None GI Upset > 30mins: 2= Nausea/Diarrhea (NAUSEA/QUEEZY STOMACH) Tremor Observation of Outstretched Hands: 1= Tremor [place], Not Seen Yawning Observation: 1= 1-2x During Session Anxiety or Irritability: 2=Irritable/Anxious Goose Flesh Skin: 3=Piloerection COWS Score: 13 BHS Progress Note (SOAP) Subjective: PT REQUESTING SUBOXONE TREATMENT. PT IS KNOWN TO THIS PROGARAM AND WAS GIVEN SUBOXONE 2 MG SL DAILY PREVIOUS ADMISSION. PT WANTED TO STAY ON THAT DOSE WHILE HERE IN TREATMENT AND PLANNED TO INCREASE AT AN AFTERCARE PROGRAM IF HE DECIDED. Objective: 10/28/18 10:54 Vital Signs 10/28/18 10/28/18 03:30 06:46 Temperature 97.8 F Pulse Rate 77 Respiratory 18 16 Rate Blood Pressure 102/72 URINE DRUG SCREEN RESULTS Urine Drug Screen Results BZO-Benzodiazepines Urine Drug Screen Results BZO-Benzodiazepines,MTD-Methadone MOST RECENT REPEAT UDS (-)MTD (+)BZO-S/P DETOX Assessment: 10/28/18 10:55 CRAVINGS RESIDUAL WITHDRAWAL SX Plan: PT MET WITH HIS COUNSELOR AND BUSINESS DEVELOPMENT DIRECTOR TODAY TO DISCUSS AFTERCARE. PT IS INTERESTED IN GOING TO [facility] [employer] [facility] ON [address] FOR CD AFTERCARE. D/ W THIS PROGRAM WITH PT LISTENING AND WILL TAKE PATIENT AND CONTINUE SUBOXONE AFTER DISCHARGE HERE.
[2018-10-28] MEDS ORDERED: BUPRENORPHINE/NALOXONE 2 MG/0.5 MG FILM PACKET SL ONE (10:59)
[2018-10-28] MEDS: THIAMINE HCL 100 MG TABLET (FP) PO SCH (21:25)
[2018-10-28] MEDS: MELATONIN 5 MG TABLETS PO PRN (21:25)
[2018-10-28] MEDS: traZODone HCL 50 MG TABLET (FP) PO SCH (21:27)
[2018-10-28] MEDS: hydrOXYzine PAMOATE 50 MG CAPSULE (FP) PO PRN (22:56)
[2018-10-29] MEDS: PRENATAL VITAMINS W/ FOLIC ACID TABLET (FP) PO SCH (10:06)
[2018-10-29] MEDS: BUPRENORPHINE/NALOXONE 2 MG/0.5 MG FILM PACKET SL SCH (10:06)
[2018-10-29] MEDS: NICOTINE 21 MG/24 HOURS TOPICAL PATCH TD SCH (10:06)
--- NOTE | 2018-10-29 10:28 | PN ---
S Progress Note Note: NIGHT NURSES HAVE REPORTED PT HAS BEEN REFUSING HIS TRAZODONE 150 MG PO HS X 4 NIGHTS. PT STATED TO WAITER/WAITRESS INFORMAL THAT HE WAS ON BESOLMRA AND WANTS THAT FOR SLEEP. Vital Signs - 24 hr 10/29/18 10/29/18 10/29/18 00:30 03:30 07:22 Respiratory 18 18 18 Rate
[2018-10-29] MEDS: THIAMINE HCL 100 MG TABLET (FP) PO SCH (21:23)
[2018-10-29] MEDS: MELATONIN 5 MG TABLETS PO PRN (21:24)
[2018-10-29] MEDS: hydrOXYzine PAMOATE 50 MG CAPSULE (FP) PO PRN (21:24)
[2018-10-29] MEDS: traZODone HCL 50 MG TABLET (FP) PO SCH (21:25)
[2018-10-30] MEDS: hydrOXYzine PAMOATE 50 MG CAPSULE (FP) PO PRN (05:43)
[2018-10-30] MEDS: PRENATAL VITAMINS W/ FOLIC ACID TABLET (FP) PO SCH (10:08)
[2018-10-30] MEDS: NICOTINE 21 MG/24 HOURS TOPICAL PATCH TD SCH (10:08)
[2018-10-30] MEDS: BUPRENORPHINE/NALOXONE 2 MG/0.5 MG FILM PACKET SL SCH (10:08)
[2018-10-30] MEDS: THIAMINE HCL 100 MG TABLET (FP) PO SCH (21:41)
[2018-10-30] MEDS: traZODone HCL 50 MG TABLET (FP) PO SCH (21:41)
[2018-10-31] MEDS: hydrOXYzine PAMOATE 50 MG CAPSULE (FP) PO PRN ×2 (01:02→21:21)
[2018-10-31] MEDS: NICOTINE 21 MG/24 HOURS TOPICAL PATCH TD SCH (10:12)
[2018-10-31] MEDS: BUPRENORPHINE/NALOXONE 2 MG/0.5 MG FILM PACKET SL SCH (10:12)
[2018-10-31] MEDS: PRENATAL VITAMINS W/ FOLIC ACID TABLET (FP) PO SCH (10:12)
[2018-10-31] MEDS: MELATONIN 5 MG TABLETS PO PRN (21:20)
[2018-10-31] MEDS: THIAMINE HCL 100 MG TABLET (FP) PO SCH (21:20)
[2018-10-31] MEDS: traZODone HCL 50 MG TABLET (FP) PO SCH (21:21)
[2018-11-01] MEDS: PRENATAL VITAMINS W/ FOLIC ACID TABLET (FP) PO SCH (10:07)
[2018-11-01] MEDS: NICOTINE 21 MG/24 HOURS TOPICAL PATCH TD SCH (10:07)
[2018-11-01] MEDS: BUPRENORPHINE/NALOXONE 2 MG/0.5 MG FILM PACKET SL SCH (10:07)
[2018-11-01] MEDS: SUVOREXANT 10 MG TABLET PO PRN (21:21)
[2018-11-01] MEDS: MELATONIN 5 MG TABLETS PO PRN (21:22)
[2018-11-01] MEDS: THIAMINE HCL 100 MG TABLET (FP) PO SCH (21:22)
[2018-11-01] MEDS: hydrOXYzine PAMOATE 50 MG CAPSULE (FP) PO PRN (21:22)
[2018-11-01] MEDS: traZODone HCL 50 MG TABLET (FP) PO SCH (22:28)
[2018-11-02] MEDS: hydrOXYzine PAMOATE 50 MG CAPSULE (FP) PO PRN ×2 (07:41→21:31)
[2018-11-02] MEDS: PRENATAL VITAMINS W/ FOLIC ACID TABLET (FP) PO SCH (10:03)
[2018-11-02] MEDS: NICOTINE 21 MG/24 HOURS TOPICAL PATCH TD SCH (10:03)
[2018-11-02] MEDS: BUPRENORPHINE/NALOXONE 2 MG/0.5 MG FILM PACKET SL SCH (10:03)
[2018-11-02] MEDS: traZODone HCL 50 MG TABLET (FP) PO SCH (21:29)
[2018-11-02] MEDS: THIAMINE HCL 100 MG TABLET (FP) PO SCH (21:29)
[2018-11-02] MEDS: SUVOREXANT 10 MG TABLET PO PRN (21:31)
[2018-11-03] MEDS: PRENATAL VITAMINS W/ FOLIC ACID TABLET (FP) PO SCH (10:34)
[2018-11-03] MEDS: BUPRENORPHINE/NALOXONE 2 MG/0.5 MG FILM PACKET SL SCH (10:34)
[2018-11-03] MEDS: NICOTINE 21 MG/24 HOURS TOPICAL PATCH TD SCH (10:34)
--- NOTE | 2018-11-03 10:53 | PN ---
BHS COWS - Scale Resting Pulse: 1= [place] 81-100 Sweatin= No chills or Flushing Restless Observation: 3= Extraneous Movement Pupil Size: 0= Normal to Room Light Bone or Joint Aches: 0= None Runny Nose/ Eye Tearin= None GI Upset > 30mins: 2= Nausea/Diarrhea Tremor Observation of Outstretched Hands: 0= None Yawning Observation: 1= 1-2x During Session Anxiety or Irritability: 1=Feels Anxious/Irritable Goose Flesh Skin: 0=Smooth Skin COWS Score: 8 S Progress Note (SOAP) Subjective: C/O RESTLESSNESS, DIARRHEA,"I'M NOT SLEEPING. PT IS REQUESTING FOR SUBOXONE INCREASE DUE TO DISCOMFORT. PT HAS BEEN REFERRED TO AFTERCARE AT [facility] WHERE HE WILL BE CONTINUING CARE AFTER DISCHARGE. Objective: 11/03/18 10:50 Vital Signs - 24 hr 11/03/18 11/03/18 11/03/18 00:30 03:30 07:23 Temperature 97.9 F Pulse Rate 95 H Respiratory 18 18 17 Rate Blood Pressure 101/69 Assessment: 11/03/18 10:51 CRAVINGS PROTRACTED W/S Plan: INCREASE SUBOXONE TO 4 MG/1 MG PO DAILY
[2018-11-03] MEDS: MELATONIN 5 MG TABLETS PO PRN (21:20)
[2018-11-03] MEDS: THIAMINE HCL 100 MG TABLET (FP) PO SCH (21:20)
[2018-11-03] MEDS: traZODone HCL 50 MG TABLET (FP) PO SCH (21:20)
[2018-11-03] MEDS: hydrOXYzine PAMOATE 50 MG CAPSULE (FP) PO PRN (21:21)
[2018-11-03] MEDS: SUVOREXANT 10 MG TABLET PO PRN (21:22)
[2018-11-04] MEDS: PRENATAL VITAMINS W/ FOLIC ACID TABLET (FP) PO SCH (09:48)
[2018-11-04] MEDS: NICOTINE 21 MG/24 HOURS TOPICAL PATCH TD SCH (09:50)
[2018-11-04] MEDS ORDERED: BUPRENORPHINE/NALOXONE 2 MG/0.5 MG FILM PACKET SL ONE (11:15)
[2018-11-04] MEDS: hydrOXYzine PAMOATE 50 MG CAPSULE (FP) PO PRN ×2 (14:21→21:27)
[2018-11-04] MEDS: THIAMINE HCL 100 MG TABLET (FP) PO SCH (21:27)
[2018-11-04] MEDS: MELATONIN 5 MG TABLETS PO PRN (21:27)
[2018-11-04] MEDS: traZODone HCL 50 MG TABLET (FP) PO SCH (21:28)
[2018-11-04] MEDS: SUVOREXANT 10 MG TABLET PO PRN (21:28)
[2018-11-04] MEDS ORDERED: SUVOREXANT 10 MG TABLET PO PRN (22:00)
[2018-11-05 07:49] VITALS: BP 128/79; PULSE 71; TEMP 97.8
[2018-11-05] MEDS ORDERED: BUPRENORPHINE/NALOXONE 2 MG/0.5 MG FILM PACKET SL SCH (10:00)
[2018-11-05] MEDS: NICOTINE 21 MG/24 HOURS TOPICAL PATCH TD SCH (10:23)
[2018-11-05] MEDS: PRENATAL VITAMINS W/ FOLIC ACID TABLET (FP) PO SCH (10:23)
[2018-11-05] MEDS ORDERED: BUPRENORPHINE/NALOXONE 2 MG/0.5 MG FILM PACKET SL ONE (10:45)
--- NOTE | 2018-11-05 13:45 | PN ---
[facility] Progress Note Note: Patient is scheduled for discharge tomorrow. Script for Trazadone 150 mg/hs will be electronically transmitted to [facility] at [address] [place] [phone]
[2018-11-05] MEDS: traZODone HCL 50 MG TABLET (FP) PO SCH (21:23)
[2018-11-05] MEDS: THIAMINE HCL 100 MG TABLET (FP) PO SCH (21:24)
[2018-11-05] MEDS: hydrOXYzine PAMOATE 50 MG CAPSULE (FP) PO PRN (21:25)
[2018-11-05] MEDS: MELATONIN 5 MG TABLETS PO PRN (21:25)
[2018-11-06] MEDS: PRENATAL VITAMINS W/ FOLIC ACID TABLET (FP) PO SCH (09:16)
[2018-11-06] MEDS: NICOTINE 21 MG/24 HOURS TOPICAL PATCH TD SCH (09:17)
[2018-11-06] MEDS ORDERED: BUPRENORPHINE/NALOXONE 2 MG/0.5 MG FILM PACKET SL SCH (10:00)
--- NOTE | 2018-11-06 10:18 | PN ---
BHS Progress Note (SOAP) Subjective: PT COMPLETED REHAB AND DISCHARGED TODAY. PT MET WITH HIS COUNSELOR AND HAS BEEN REFERRED TO [facility] [address] [place] [place] FOR CD AFTERCARE. PT REPORTS HE HAS A PSYCHIATRIST DR. BRICE FOR MANAGEMENT. PT REPORTS HE HAS NO PCP- MEDICAL AND HAS BEEN INSTRUCTED TO GO TO [facility], [facility] LOCATION FOR PRIMARY CARE MANAGEMENT.PT IS ALERT O X 3. DENIES S/H/I. Objective: 11/06/18 10:24 Vital Signs (72 hours) 11/04/18 11/04/18 11/04/18 00:30 03:30 06:45 Temperature Pulse Rate Respiratory 18 18 18 Rate Blood Pressure 11/05/18 11/05/18 11/05/18 00:31 03:30 07:48 Temperature 97.8 F Pulse Rate 71 Respiratory 20 18 20 Rate Blood Pressure 128/79 11/06/18 11/06/18 11/06/18 00:30 03:30 06:28 Temperature Pulse Rate Respiratory 18 18 18 Rate Blood Pressure Home Medications Medication Instructions Recorded Trazodone HCl 150 mg PO HS #30 tablet 11/05/18 Buprenorphine HCl/Naloxone HCl 1 each SL DAILY #7 film MDD 1 11/06/18 [Suboxone 4 mg-1 mg Sl Film] Naloxone HCl [Narcan] 4 mg NS ONCE #1 spray 11/06/18 Assessment: 11/06/18 10:26 NAD MEDICALLY STABLE Plan: D/C PT TODAY FOLLOW UP WITH CD AFTERCARE RECOMMENDED FOLLOW UP WITH PSYCH PCP AND PRIMARY CARE AT [facility] WITHIN 1- 2 WEEKS AFTER DISCHARGE.
== END 2018-11-06 09:22 | disposition home or self-care (01) | DRG 772 ==
LOC: YASAS 13:51 → Y5N 13:52
PROVIDERS: ADMIT Neuromusculoskeletal Medicine & OMM; ATTEND Neuromusculoskeletal Medicine & OMM
PROC: HZ42ZZZ Group Counseling for Substance Abuse Treatment, Cognitive-Behavioral (ICD-10-PCS; principal; 2018-10-19)
DX: F11.23 Opioid dependence with withdrawal (principal); F13.230 Sedative, hypnotic or anxiolytic dependence with withdrawal, uncomplicated; F32.9 Major depressive disorder, single episode, unspecified; F19.280 Other psychoactive substance dependence with psychoactive substance-induced anxiety disorder; F19.282 Other psychoactive substance dependence with psychoactive substance-induced sleep disorder; J45.909 Unspecified asthma, uncomplicated; Z86.79 Personal history of other diseases of the circulatory system; Z86.69 Personal history of other diseases of the nervous system and sense organs; Z91.19 Patient's noncompliance with other medical treatment and regimen

== ENCOUNTER 2019-03-29 09:58 | Inpatient (IN) | payer OTHER ==
[2019-03-29 10:14] VITALS: BMI 25.9
--- NOTE | 2019-03-29 10:28 | HP ---
Screened but not Admitted - Documentation of Visit Screened but not Admitted: No Left Prior to Completion of Assessment: Yes Insurance Authorization Denied: No Patient Does Not Meet Criteria for Admission: No Additional Information/Explanation: Patient registered and then left before being assessed.
--- NOTE | 2019-03-29 11:16 | HP ---
COWS - Scale Resting Pulse: 0= [place] 80 or Below Sweatin=Flushed/Facial Moisture Restless Observation: 1= Difficult to Sit Still Pupil Size: 1= Pupils >than Normal Bone or Joint Aches: 2= Severe Diffuse Aches Runny Nose/ Eye Tearin= Runny Nose/Eyes GI Upset > 30mins: 2= Nausea/Diarrhea Tremor Observation: 2= Slight Tremor Visible Yawning Observation: 2= >3x During Session Anxiety or Irritability: 2=Irritable/Anxious Goose Flesh Skin: 3=Piloerection COWS Score: 19 CIWA Score - Admission Criteria OASAS Guidelines: Admission for Medically Managed Detox: Requires at least one of the followin. CIWA greater than 12 2. Seizures within the past 24 hours 3. Delirium tremens within the past 24 hours 4. Hallucinations within the past 24 hours 5. Acute intervention needed for co occurring medical disorder 6. Acute intervention needed for co occurring psychiatric disorder 7. Severe withdrawal that cannot be handled at a lower level of care (continued vomiting, continued diarrhea, abnormal vital signs) requiring intravenous medication and/or fluids 8. Admitting History and Physical - Admission Chief Complaint: " I want to stop using heroin." History of Present Illness: 33 year old male with opioid dependence with withdrawals. He was on suboxone for 2-3 month and then relapsed last week. He is now using 1/2 gm of heroin per day, intranasally, last used yesterday afternoon. He denies use of other substances. PMH: History of overdose in the past in the prior admission here to detox ROS: Some left flank pain. Psurg: None Psych: Depression and Anxiety Med: Alprazolam All: NKDA Patient is domiciled and has no support systems here in [place]. Parents are in [place]. - Past Medical History Psych: Yes: Depression - Smoking History Smoking history: Current some day smoker Have you smoked in the past 12 months: Yes Aproximately how many cigarettes per day: 1 - Alcohol/Substance Use Hx Alcohol Use: No - Social History History of Recent Travel: No Admission ROS BHS - HPI Allergies/Adverse Reactions: Allergies Allergy/AdvReac Type Severity Reaction Status Date / Time risperidone Allergy Severe Verified 03/29/19 10:08 History of Present Illness: 33 year old male with opioid dependence with withdrawals. He was on suboxone for 2-3 month and then relapsed last week. He is now using 1/2 gm of heroin per day, intranasally, last used yesterday afternoon. He denies use of other substances. PMH: History of overdose in the past in the prior admission here to detox ROS: Some left flank pain. Psurg: None Psych: Depression and Anxiety Med: Alprazolam All: NKDA Patient is domiciled and has no support systems here in [place]. Parents are in [place]. - Ebola screening Have you traveled outside of the country in the last 21 days: No Have you had contact with anyone from an Ebola affected area: No Have you been sick,other than usual withdrawal symptoms: No Do you have a fever: No - Review of Systems Constitutional: Chills, Diaphoresis, Unintentional Wgt. Loss EENT: reports: No Symptoms Reported Respiratory: reports: No Symptoms reported Cardiac: reports: No Symptoms Reported GI: reports: Constipated, Poor Appetite : reports: No Symptoms Reported Musculoskeletal: reports: No Symptoms Reported Integumentary: reports: No Symptoms Reported Neuro: reports: No Symptoms reported Endocrine: reports: No Symptoms Reported Hematology: reports: No Symptoms Reported Psychiatric: reports: Judgement Intact, Orientated x3, Agitated, Anxious Other Systems: Reviewed and Negative Patient History - Patient Medical History Hx Anemia: No Hx Asthma: No Hx Chronic Obstructive Pulmonary Disease (COPD): No Hx Cancer: No Hx Cardiac Disorders: No Hx Congestive Heart Failure: No Hx Hypertension: No Hx Hypercholesterolemia: No Hx Pacemaker: No HX Cerebrovascular Accident: No Hx Seizures: No Hx Dementia: No Hx Diabetes: No Hx Gastrointestinal Disorders: No Hx Liver Disease: No Hx Genitourinary Disorders: No Hx Sexually Transmitted Disorders: No Hx Renal Disease (ESRD): No Hx Thyroid Disease: No Hx Human Immunodeficiency Virus (HIV): No (last 08/25/18 negative) Hx Hepatitis C: No Hx Depression: Yes Hx Suicide Attempt: No Hx Bipolar Disorder: No Hx Schizophrenia: No - Patient Surgical History Past Surgical History: No Hx Neurologic Surgery: No Hx Cataract Extraction: No Hx Cardiac Surgery: No Hx Lung Surgery: No Hx Breast Surgery: No Hx Breast Biopsy: No Hx Abdominal Surgery: No Hx Appendectomy: No Hx Cholecystectomy: No Hx Genitourinary Surgery: No Hx Section: No Hx Orthopedic Surgery: No Anesthesia Reaction: No - PPD History Previous Implant?: Yes Documented Results: Negative w/proof Implanted On Prior [facility] Admission?: Yes Date: 08/27/18 Results: 0mm PPD to be Administered?: No - Smoking Cessation Smoking history: Current some day smoker Have you smoked in the past 12 months: Yes Aproximately how many cigarettes per day: 1 Hx Chewing Tobacco Use: No Initiated information on smoking cessation: Yes 'Breaking Loose' booklet given: 03/29/19 - Substances abused Heroin Substance route: Inhalation Frequency: Daily Amount used: 1/2 gram Age of first use: 26 Date of last use: 03/28/19 Alprazolam (Xanax) Substance route: Oral Frequency: Daily Amount used: 4 mgs Age of first use: 31 Date of last use: 10/14/18 Admission Physical Exam [facility] - Vital Signs Vital Signs: Vital Signs - 24 hr 03/29/19 10:10 Temperature 98.2 F Pulse Rate 53 L Respiratory 18 Rate Blood Pressure 121/68 Cleared for Admission [facility] - Detox or Rehab [facility] Level of Care: Medically Managed Detox Regimen/Protocol: Methadone Claeared for Rehab Admission: No Screened but not Admitted - Documentation of Visit Screened but not Admitted: No Breathalyzer - Breathalyzer Breathalyzer: 0 Urine Drug Screen - Test Device Lot number: [id number] Expiration date: 07/09/20 - Control Is test valid?: Yes - Results Drug screen NEGATIVE: No Urine drug screen results: THC-Marijuana, MOP-Opiates, BZO-Benzodiazepines Inpatient Rehab Admission - Rehab Decision to Admit Inpatient rehab admission?: No
[2019-03-29] MEDS ORDERED: MAG HYDROX/AL HYDROX/SIMETH 30 ML UNIT-DOSE CUP PO PRN (11:20)
[2019-03-29] MEDS ORDERED: MENTHOL/PHENOL 1 EACH UD MM PRN (11:20)
[2019-03-29] MEDS ORDERED: cloNIDine HCL 0.1 MG TABLET PO PRN (11:20)
[2019-03-29] MEDS ORDERED: ACETAMINOPHEN 325 MG TABLET (FP) PO PRN ×2 (11:20)
[2019-03-29] MEDS ORDERED: BISMUTH SUBSALICYLATE 524 MG/30 ML UD PO PRN (11:20)
[2019-03-29] MEDS ORDERED: MAGNESIUM HYDROX 2400MG/30ML ORAL SUSPENSION 30 ML CUP PO PRN (11:20)
[2019-03-29] MEDS ORDERED: MAGNESIUM CITRATE 300 ML BOTTLE PO PRN (11:20)
[2019-03-29] MEDS ORDERED: METHOCARBAMOL 500 MG TABLET PO PRN (11:20)
[2019-03-29] MEDS ORDERED: METHADONE HCL 10 MG TABLET (FOR DETOX USE ONLY) PO ONE (13:45)
[2019-03-29] MEDS: IBUPROFEN 400 MG TABLET (FP) PO PRN (13:49)
[2019-03-29] MEDS: hydrOXYzine PAMOATE 25 MG CAPSULE (FP) PO PRN (13:50)
[2019-03-29 14:00] LABS: HEMATOCRIT 43.6 % (35.4-49); HEMOGLOBIN 14.8 GM/dL (11.7-16.9); MCH 29.8 pg (25.7-33.7); MCHC 33.8 g/dl (32.0-35.9); MEAN CELL VOLUME 88.2 fl (80-96); MEAN PLT VOLUME 10.4 fl (7.5-11.1); PLATELET COUNT 193 K/MM3 (134-434); RBC 4.95 M/mm3 (4.00-5.60); RDW 13.7 % (11.9-15.9); WHITE BLOOD COUNT 8.8 K/mm3 (4.0-10.0)
[2019-03-29 14:13] LABS: ALBUMIN 4.3 g/dl (3.4-5.0); BILIRUBIN,TOTAL 0.3 mg/dL (0.2-1); BLOOD UREA NITROGEN 7.4 mg/dL (7-18); CALCIUM 9.1 mg/dL (8.5-10.1); CREATININE 1.1 mg/dL (0.55-1.3); POTASSIUM 4.2 mmol/L (3.5-5.1); TOT PROT 7.9 g/dl (6.4-8.2)
[2019-03-29] MEDS ORDERED: traZODone HCL 50 MG TABLET (FP) PO SCH (22:00)
[2019-03-29] MEDS: clonazePAM 0.5 MG TABLET PO SCH (22:11)
[2019-03-29] MEDS: THIAMINE HCL 100 MG TABLET (FP) PO SCH (22:11)
[2019-03-30] MEDS ORDERED: ESCITALOPRAM OXALATE 10 MG TABLET (FP) ONE (09:06)
[2019-03-30] MEDS ORDERED: METHADONE HCL 5 MG TABLET (FOR DETOX USE ONLY) ONE (09:06)
[2019-03-30] MEDS ORDERED: METHADONE HCL 10 MG TABLET (FOR DETOX USE ONLY) ONE (09:06)
[2019-03-30] MEDS ORDERED: METHADONE (DETOX) 20 MG, METHADONE (DETOX) 5 MG PO ONE (10:00)
--- NOTE | 2019-03-30 10:02 | PN ---
BHS COWS - Scale Resting Pulse: 0= [place] 80 or Below Sweatin= Chills/Flushing Restless Observation: 0= Sits Still Pupil Size: 1= Pupils >than Normal Bone or Joint Aches: 2= Severe Diffuse Aches Runny Nose/ Eye Tearin= Nasal Congestion GI Upset > 30mins: 1= Stomach Cramp Tremor Observation of Outstretched Hands: 2= Slight Tremor Visible Yawning Observation: 2= >3x During Session Anxiety or Irritability: 2=Irritable/Anxious Goose Flesh Skin: 3=Piloerection COWS Score: 15 BHS Progress Note (SOAP) Subjective: doing well with methadone detox regimen sitting on the edge of the bed eating breakfast request psychiatrist for psychotropic medication patient denies suicidal ideation psychiatrist referral in placed Objective: 03/30/19 10:02 Vital Signs Temperature 97.3 F L 03/30/19 09:08 Pulse Rate 57 L 03/30/19 09:08 Respiratory Rate 16 03/30/19 09:08 Blood Pressure 115/62 03/30/19 09:08 O2 Sat by Pulse Oximetry (%) Laboratory Last Values WBC 8.8 K/mm3 (4.0-10.0) 03/29/19 11:50 RBC 4.95 M/mm3 (4.00-5.60) 03/29/19 11:50 Hgb 14.8 GM/dL (11.7-16.9) 03/29/19 11:50 Hct 43.6 % (35.4-49) 03/29/19 11:50 MCV 88.2 fl (80-96) 03/29/19 11:50 MCH 29.8 pg (25.7-33.7) 03/29/19 11:50 MCHC 33.8 g/dl (32.0-35.9) 03/29/19 11:50 RDW 13.7 % (11.9-15.9) 03/29/19 11:50 Plt Count 193 K/MM3 (134-434) D 03/29/19 11:50 MPV 10.4 fl (7.5-11.1) D 03/29/19 11:50 Sodium 139 mmol/L (136-145) 03/29/19 11:50 Potassium 4.2 mmol/L (3.5-5.1) 03/29/19 11:50 Chloride 102 mmol/L (98-107) 03/29/19 11:50 Carbon Dioxide 30 mmol/L (21-32) 03/29/19 11:50 Anion Gap 7 MMOL/L (8-16) L 03/29/19 11:50 BUN 7.4 mg/dL (7-18) 03/29/19 11:50 Creatinine 1.1 mg/dL (0.55-1.3) 03/29/19 11:50 Est GFR (CKD-EPI)AfAm 100.27 03/29/19 11:50 Est GFR (CKD-EPI)NonAf 86.51 03/29/19 11:50 Random Glucose 57 mg/dL (74-106) L 03/29/19 11:50 Calcium 9.1 mg/dL (8.5-10.1) 03/29/19 11:50 Total Bilirubin 0.3 mg/dL (0.2-1) 03/29/19 11:50 AST 17 U/L (15-37) 03/29/19 11:50 ALT 21 U/L (13-61) 03/29/19 11:50 Alkaline Phosphatase 115 U/L (45-117) 03/29/19 11:50 Total Protein 7.9 g/dl (6.4-8.2) 03/29/19 11:50 Albumin 4.3 g/dl (3.4-5.0) 03/29/19 11:50 RPR Titer Nonreactive (NONREACTIVE) 03/29/19 11:50 lab noted Assessment: 03/30/19 10:02 opiate withdrawal sx 03/30/19 10:02 recommend medication assisted treatment program Plan: continue methadone detox regimen [employer] [facility] narcan from pharmacy
[2019-03-30] MEDS: clonazePAM 0.5 MG TABLET PO SCH ×2 (10:23→22:12)
[2019-03-30] MEDS: NICOTINE 7 MG/24 HOURS TOPICAL PATCH TD SCH (10:24)
[2019-03-30] MEDS: PRENATAL VITAMINS W/ FOLIC ACID TABLET (FP) PO SCH (10:24)
[2019-03-30] MEDS: ESCITALOPRAM OXALATE 20 MG TABLET (FP) PO SCH (10:26)
--- NOTE | 2019-03-30 18:22 | PN ---
S Progress Note Note: Psychiatry Attending's note : Approached at bedside for psychiatric evaluation. Patient is found asleep.
[2019-03-30] MEDS: IBUPROFEN 400 MG TABLET (FP) PO PRN (19:01)
[2019-03-30] MEDS: THIAMINE HCL 100 MG TABLET (FP) PO SCH (22:12)
[2019-03-30] MEDS: MELATONIN 5 MG TABLETS PO PRN (22:45)
[2019-03-31] MEDS ORDERED: ESCITALOPRAM OXALATE 10 MG TABLET (FP) ONE (09:15)
[2019-03-31] MEDS ORDERED: METHADONE HCL 10 MG TABLET (FOR DETOX USE ONLY) PO ONE (10:00)
[2019-03-31] MEDS: PRENATAL VITAMINS W/ FOLIC ACID TABLET (FP) PO SCH (10:09)
[2019-03-31] MEDS: ESCITALOPRAM OXALATE 20 MG TABLET (FP) PO SCH (10:09)
[2019-03-31] MEDS: NICOTINE 7 MG/24 HOURS TOPICAL PATCH TD SCH (10:09)
[2019-03-31] MEDS: clonazePAM 0.5 MG TABLET PO SCH ×2 (10:09→22:08)
--- NOTE | 2019-03-31 10:49 | PN ---
BHS COWS - Scale Resting Pulse: 0= [place] 80 or Below Sweatin= Chills/Flushing Restless Observation: 0= Sits Still Pupil Size: 1= Pupils >than Normal Bone or Joint Aches: 1= Mild Discomfort Runny Nose/ Eye Tearin= Nasal Congestion GI Upset > 30mins: 1= Stomach Cramp Tremor Observation of Outstretched Hands: 1= Tremor [place], Not Seen Yawning Observation: 1= 1-2x During Session Anxiety or Irritability: 2=Irritable/Anxious Goose Flesh Skin: 3=Piloerection COWS Score: 12 BHS Progress Note (SOAP) Subjective: 33 years old male admitted on 03/29/19 for opiate withdrawal sx management doing well with methadone detox regimen ambulating on hallway [facility] medication assisted treatment program Objective: 03/31/19 10:48 Vital Signs Temperature 98.1 F 03/31/19 09:34 Pulse Rate 62 03/31/19 09:34 Respiratory Rate 18 03/31/19 09:34 Blood Pressure 98/65 03/31/19 09:34 O2 Sat by Pulse Oximetry (%) Laboratory Last Values WBC 8.8 K/mm3 (4.0-10.0) 03/29/19 11:50 RBC 4.95 M/mm3 (4.00-5.60) 03/29/19 11:50 Hgb 14.8 GM/dL (11.7-16.9) 03/29/19 11:50 Hct 43.6 % (35.4-49) 03/29/19 11:50 MCV 88.2 fl (80-96) 03/29/19 11:50 MCH 29.8 pg (25.7-33.7) 03/29/19 11:50 MCHC 33.8 g/dl (32.0-35.9) 03/29/19 11:50 RDW 13.7 % (11.9-15.9) 03/29/19 11:50 Plt Count 193 K/MM3 (134-434) D 03/29/19 11:50 MPV 10.4 fl (7.5-11.1) D 03/29/19 11:50 Sodium 139 mmol/L (136-145) 03/29/19 11:50 Potassium 4.2 mmol/L (3.5-5.1) 03/29/19 11:50 Chloride 102 mmol/L (98-107) 03/29/19 11:50 Carbon Dioxide 30 mmol/L (21-32) 03/29/19 11:50 Anion Gap 7 MMOL/L (8-16) L 03/29/19 11:50 BUN 7.4 mg/dL (7-18) 03/29/19 11:50 Creatinine 1.1 mg/dL (0.55-1.3) 03/29/19 11:50 Est GFR (CKD-EPI)AfAm 100.27 03/29/19 11:50 Est GFR (CKD-EPI)NonAf 86.51 03/29/19 11:50 Random Glucose 57 mg/dL (74-106) L 03/29/19 11:50 Calcium 9.1 mg/dL (8.5-10.1) 03/29/19 11:50 Total Bilirubin 0.3 mg/dL (0.2-1) 03/29/19 11:50 AST 17 U/L (15-37) 03/29/19 11:50 ALT 21 U/L (13-61) 03/29/19 11:50 Alkaline Phosphatase 115 U/L (45-117) 03/29/19 11:50 Total Protein 7.9 g/dl (6.4-8.2) 03/29/19 11:50 Albumin 4.3 g/dl (3.4-5.0) 03/29/19 11:50 RPR Titer Nonreactive (NONREACTIVE) 03/29/19 11:50 lab noted Assessment: 03/31/19 10:49 opiate withdrawal sx Plan: continue methadone detox regimen
[2019-03-31] MEDS: IBUPROFEN 400 MG TABLET (FP) PO PRN (17:10)
[2019-03-31] MEDS ORDERED: P-EPHED 60MG/TRIPROLIDI 2.5MG TABLET PO PRN (17:23)
[2019-03-31] MEDS: THIAMINE HCL 100 MG TABLET (FP) PO SCH (22:08)
[2019-03-31] MEDS: MELATONIN 5 MG TABLETS PO PRN (22:08)
[2019-03-31] MEDS: hydrOXYzine PAMOATE 25 MG CAPSULE (FP) PO PRN (22:08)
[2019-04-01] MEDS ORDERED: METHADONE HCL 10 MG TABLET (FOR DETOX USE ONLY) ONE (09:06)
[2019-04-01] MEDS ORDERED: METHADONE HCL 5 MG TABLET (FOR DETOX USE ONLY) ONE (09:06)
[2019-04-01 09:24] VITALS: BP 83/58; PULSE 54; TEMP 96.7
[2019-04-01] MEDS ORDERED: METHADONE (DETOX) 10 MG, METHADONE (DETOX) 5 MG PO ONE (10:00)
[2019-04-01] MEDS: NICOTINE 7 MG/24 HOURS TOPICAL PATCH TD SCH (10:09)
[2019-04-01] MEDS: clonazePAM 0.5 MG TABLET PO SCH (10:09)
[2019-04-01] MEDS: PRENATAL VITAMINS W/ FOLIC ACID TABLET (FP) PO SCH (10:09)
[2019-04-01] MEDS: ESCITALOPRAM OXALATE 20 MG TABLET (FP) PO SCH (10:09)
--- NOTE | 2019-04-01 12:33 | PN ---
BHS COWS - Scale Resting Pulse: 0= [place] 80 or Below Sweatin= No chills or Flushing Restless Observation: 1= Difficult to Sit Still Pupil Size: 1= Pupils >than Normal Bone or Joint Aches: 1= Mild Discomfort Runny Nose/ Eye Tearin= Nasal Congestion GI Upset > 30mins: 1= Stomach Cramp Tremor Observation of Outstretched Hands: 1= Tremor [place], Not Seen Yawning Observation: 1= 1-2x During Session Anxiety or Irritability: 2=Irritable/Anxious Goose Flesh Skin: 0=Smooth Skin COWS Score: 9 BHS Progress Note (SOAP) Subjective: alert,irritable,anxious,interrupted sleep,pain in the body and back Objective: 04/01/19 12:31 Vital Signs Temperature 96.7 F L 04/01/19 09:23 Pulse Rate 54 L 04/01/19 09:23 Respiratory Rate 18 04/01/19 09:23 Blood Pressure 83/58 L 04/01/19 09:23 O2 Sat by Pulse Oximetry (%) Assessment: 04/01/19 12:31 withdrawal symptom Plan: continue methadone regimen
--- NOTE | 2019-04-01 12:36 | PN ---
[facility] Progress Note Note: patient did not want to complete treatment,high risk of relapsing explained, patient understood, signed release ama,all attempts patient to stay with no avail,advise to call 911 if not feeling well
--- NOTE | 2019-04-01 12:39 | DS ---
[facility] Detox Discharge Summary Admission Date: 03/29/19 Discharge Date: 04/01/19 - History Present History: Opioid Dependence, Sedative Dependence Additional Comments: patient left ama Pertinent Past History: Vital Signs Temperature 96.7 F L 04/01/19 09:23 Pulse Rate 54 L 04/01/19 09:23 Respiratory Rate 18 04/01/19 09:23 Blood Pressure 83/58 L 04/01/19 09:23 O2 Sat by Pulse Oximetry (%) - Physical Exam Results Vital Signs: Vital Signs Temperature 96.7 F L 04/01/19 09:23 Pulse Rate 54 L 04/01/19 09:23 Respiratory Rate 18 04/01/19 09:23 Blood Pressure 83/58 L 04/01/19 09:23 O2 Sat by Pulse Oximetry (%) Pertinent Admission Physical Exam Findings: withdrawal sings and symptom Vital Signs Temperature 96.7 F L 04/01/19 09:23 Pulse Rate 54 L 04/01/19 09:23 Respiratory Rate 18 04/01/19 09:23 Blood Pressure 83/58 L 04/01/19 09:23 O2 Sat by Pulse Oximetry (%) Laboratory Last Values WBC 8.8 K/mm3 (4.0-10.0) 03/29/19 11:50 RBC 4.95 M/mm3 (4.00-5.60) 03/29/19 11:50 Hgb 14.8 GM/dL (11.7-16.9) 03/29/19 11:50 Hct 43.6 % (35.4-49) 03/29/19 11:50 MCV 88.2 fl (80-96) 03/29/19 11:50 MCH 29.8 pg (25.7-33.7) 03/29/19 11:50 MCHC 33.8 g/dl (32.0-35.9) 03/29/19 11:50 RDW 13.7 % (11.9-15.9) 03/29/19 11:50 Plt Count 193 K/MM3 (134-434) D 03/29/19 11:50 MPV 10.4 fl (7.5-11.1) D 03/29/19 11:50 Sodium 139 mmol/L (136-145) 03/29/19 11:50 Potassium 4.2 mmol/L (3.5-5.1) 03/29/19 11:50 Chloride 102 mmol/L (98-107) 03/29/19 11:50 Carbon Dioxide 30 mmol/L (21-32) 03/29/19 11:50 Anion Gap 7 MMOL/L (8-16) L 03/29/19 11:50 BUN 7.4 mg/dL (7-18) 03/29/19 11:50 Creatinine 1.1 mg/dL (0.55-1.3) 03/29/19 11:50 Est GFR (CKD-EPI)AfAm 100.27 03/29/19 11:50 Est GFR (CKD-EPI)NonAf 86.51 03/29/19 11:50 Random Glucose 57 mg/dL (74-106) L 03/29/19 11:50 Calcium 9.1 mg/dL (8.5-10.1) 03/29/19 11:50 Total Bilirubin 0.3 mg/dL (0.2-1) 03/29/19 11:50 AST 17 U/L (15-37) 03/29/19 11:50 ALT 21 U/L (13-61) 03/29/19 11:50 Alkaline Phosphatase 115 U/L (45-117) 03/29/19 11:50 Total Protein 7.9 g/dl (6.4-8.2) 03/29/19 11:50 Albumin 4.3 g/dl (3.4-5.0) 03/29/19 11:50 RPR Titer Nonreactive (NONREACTIVE) 03/29/19 11:50 - Medication Discharge Medications: Ambulatory Orders Trazodone HCl 150 mg PO HS #30 tablet 11/05/18 Alprazolam [Xanax] 2 mg PO BID 03/29/19 Escitalopram Oxalate [Lexapro -] 20 mg PO DAILY 03/29/19 Naloxone HCl [Narcan] 4 mg NS ASDIR PRN #1 spray 03/30/19 - Diagnosis (1) Opioid dependence with withdrawal Current Visit: No Status: Chronic (2) Sedative hypnotic or anxiolytic dependence Current Visit: No Status: Chronic - AMA Did Patient Leave Against Medical Advice: Yes
[2019-04-02] MEDS ORDERED: METHADONE HCL 10 MG TABLET (FOR DETOX USE ONLY) PO ONE (10:00)
[2019-04-03] MEDS ORDERED: METHADONE HCL 5 MG TABLET (FOR DETOX USE ONLY) PO ONE (06:00)
== END 2019-04-01 12:52 | disposition left against medical advice (07) | DRG 770 ==
LOC: YASAS 09:58 → Y3N 12:05
PROVIDERS: ADMIT Allergy & Immunology; ATTEND Allergy & Immunology
PROC: HZ2ZZZZ Detoxification Services for Substance Abuse Treatment (ICD-10-PCS; principal; 2019-03-29)
DX: F11.23 Opioid dependence with withdrawal (principal); F13.20 Sedative, hypnotic or anxiolytic dependence, uncomplicated; F17.210 Nicotine dependence, cigarettes, uncomplicated; F41.8 Other specified anxiety disorders; F32.9 Major depressive disorder, single episode, unspecified; Z88.8 Allergy status to other drugs, medicaments and biological substances
CPT/HCPCS: 36415; 80053; 85027; 86593; J0735

== ENCOUNTER 2019-06-21 09:57 | Inpatient (IN) | payer OTHER ==
[2019-06-21 10:27] VITALS: BMI 26.4
[2019-06-21] MEDS ORDERED: chlordiazePOXIDE HCL 25 MG CAPSULE PO SCH (11:00)
--- NOTE | 2019-06-21 11:33 | HP ---
COWS - Scale Resting Pulse: 1= [place] 81-100 Sweatin= Streaming Sweat Restless Observation: 1= Difficult to Sit Still Pupil Size: 1= Pupils >than Normal Bone or Joint Aches: 4=Acute Joint/Muscle Pain Runny Nose/ Eye Tearin= Runny Nose/Eyes GI Upset > 30mins: 1= Stomach Cramp Tremor Observation: 2= Slight Tremor Visible Yawning Observation: 1= 1-2x During Session Anxiety or Irritability: 1=Feels Anxious/Irritable Goose Flesh Skin: 0=Smooth Skin COWS Score: 18 CIWA Score - Admission Criteria [facility] Guidelines: Admission for Medically Managed Detox: Requires at least one of the followin. CIWA greater than 12 2. Seizures within the past 24 hours 3. Delirium tremens within the past 24 hours 4. Hallucinations within the past 24 hours 5. Acute intervention needed for co occurring medical disorder 6. Acute intervention needed for co occurring psychiatric disorder 7. Severe withdrawal that cannot be handled at a lower level of care (continued vomiting, continued diarrhea, abnormal vital signs) requiring intravenous medication and/or fluids 8. Admitting History and Physical - Admission Chief Complaint: " I want to stop using heroin." History of Present Illness: 34 year old male with history of opioid dependence with withdrawals. He is using 6-7 bags of heroin per day, overdosed while inpatient last visit. He endorses buying street methadone when unable to get heroin. He is prescribed Xanax and is indicated on ISTOP. He does not endorse smoking. PMH: None except for ? Afib Psych: Anxiety Disorder and Depressionm suicide attempt 2017 Psurg: None History Source: Patient Limitations to Obtaining History: No Limitations - Past Medical History Cardiovascular: Yes: AFIB Psych: Yes: Depression - Past Surgical History Past Surgical History: Yes: None - Smoking History Smoking history: Current some day smoker Have you smoked in the past 12 months: Yes Aproximately how many cigarettes per day: 1 - Alcohol/Substance Use Hx Alcohol Use: No - Social History Usual Living Arrangement: Yes: Alone Do you think of yourself as: Straight/Heterosexual ADL: Independent Occupation: unemployed History of Recent Travel: No Admission ROS BHS - HPI Allergies/Adverse Reactions: Allergies Allergy/AdvReac Type Severity Reaction Status Date / Time risperidone Allergy Severe Verified 06/21/19 10:22 Exam Limitations: No Limitations - Ebola screening Have you traveled outside of the country in the last 21 days: No Have you had contact with anyone from an Ebola affected area: No Have you been sick,other than usual withdrawal symptoms: No Do you have a fever: No - Review of Systems Constitutional: Chills, Diaphoresis, Unintentional Wgt. Loss EENT: reports: No Symptoms Reported Respiratory: reports: No Symptoms reported Cardiac: reports: No Symptoms Reported GI: reports: No Symptoms Reported : reports: No Symptoms Reported Musculoskeletal: reports: No Symptoms Reported Integumentary: reports: No Symptoms Reported Neuro: reports: No Symptoms reported Endocrine: reports: No Symptoms Reported Hematology: reports: No Symptoms Reported Psychiatric: reports: No Sypmtoms Reported Other Systems: Reviewed and Negative Patient History - Patient Medical History Hx Anemia: No Hx Asthma: No Hx Chronic Obstructive Pulmonary Disease (COPD): No Hx Cancer: No Hx Cardiac Disorders: Yes (AFIB) Hx Congestive Heart Failure: No Hx Hypertension: No Hx Hypercholesterolemia: No Hx Pacemaker: No HX Cerebrovascular Accident: No Hx Seizures: No Hx Dementia: No Hx Diabetes: No Hx Gastrointestinal Disorders: No Hx Liver Disease: No Hx Genitourinary Disorders: No Hx Sexually Transmitted Disorders: No Hx Renal Disease (ESRD): No Hx Thyroid Disease: No Hx Human Immunodeficiency Virus (HIV): No (last 08/25/18 negative) Hx Hepatitis C: No Hx Depression: Yes Hx Suicide Attempt: Yes (2016) Hx Bipolar Disorder: No Hx Schizophrenia: No - Patient Surgical History Past Surgical History: No Hx Neurologic Surgery: No Hx Cataract Extraction: No Hx Cardiac Surgery: No Hx Lung Surgery: No Hx Breast Surgery: No Hx Breast Biopsy: No Hx Abdominal Surgery: No Hx Appendectomy: No Hx Cholecystectomy: No Hx Genitourinary Surgery: No Hx Section: No Hx Orthopedic Surgery: No Anesthesia Reaction: No - PPD History Previous Implant?: Yes Documented Results: Negative w/proof Implanted On Prior [facility] Admission?: Yes Date: 08/27/18 Results: 0mm PPD to be Administered?: No - Smoking Cessation Smoking history: Current some day smoker Have you smoked in the past 12 months: Yes Aproximately how many cigarettes per day: 1 Hx Chewing Tobacco Use: No Initiated information on smoking cessation: Yes 'Breaking Loose' booklet given: 06/21/19 - Substances abused Heroin Substance route: Inhalation Frequency: Daily Amount used: 6-7 bags Age of first use: 26 Date of last use: 06/20/19 Alprazolam (Xanax) Substance route: Oral Frequency: Daily Amount used: 4 mgs Age of first use: 31 Date of last use: 06/20/19 Admission Physical Exam [facility] - Vital Signs Vital Signs: Vital Signs - 24 hr 06/21/19 10:20 Temperature 97.2 F L Pulse Rate 72 Respiratory 18 Rate Blood Pressure 103/72 - Physical General Appearance: Yes: Mild Distress, Tremorous, Irritable, Sweating, Anxious HEENTM: Yes: EOMI, Hearing grossly Normal, Normal ENT Inspection, Normocephalic , Normal Voice, DELFINA, Pharynx Normal, Tm's normal Respiratory: Yes: Chest Non-Tender, Lungs Clear, Normal Breath Sounds, No Respiratory Distress, No Accessory Muscle Use Neck: Yes: No masses,lesions,Nodules, Supple, Trachea in good position Breast: Yes: Within Normal Limits Cardiology: Yes: Regular Rhythm, S1, S2, Tachycardia Abdominal: Yes: Increased Bowel Sounds, Other (right lower quadran tenderness without guarding or rigidity.) Genitourinary: Yes: Within Normal Limits Back: Yes: Normal Inspection Musculoskeletal: Yes: full range of Motion, Gait Steady, Pelvis Stable Extremities: Yes: Normal Capillary Refill, Normal Inspection, Normal Range of Motion, Non-Tender 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, Fully Oriented, Alert, Motor Strength 5/5, Normal Mood/Affect, Normal Response Integumentary: Yes: Normal Color, Warm Lymphatic: Yes: Within Normal Limits - Diagnostic (1) Depression Current Visit: Yes Status: Acute (2) Insomnia secondary to depression with anxiety Current Visit: Yes Status: Acute (3) Insomnia Current Visit: Yes Status: Chronic (4) Opioid dependence with withdrawal Current Visit: Yes Status: Chronic (5) 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 (6) History of atrial fibrillation Current Visit: Yes Status: Resolved Cleared for Admission [facility] - Detox or Rehab [facility] Level of Care: Medically Managed Detox Regimen/Protocol: Methadone Screened but not Admitted - Documentation of Visit Screened but not Admitted: No Breathalyzer - Breathalyzer Breathalyzer: 0 Urine Drug Screen - Test Device Lot number: [id number] Expiration date: 01/06/21 - Control Is test valid?: Yes - Results Drug screen NEGATIVE: No Urine drug screen results: FEN-Fentanyl, MOP-Opiates, MTD-Methadone, BZO- Benzodiazepines Inpatient Rehab Admission - Rehab Decision to Admit Inpatient rehab admission?: No
[2019-06-21] MEDS ORDERED: BISMUTH SUBSALICYLATE 262 MG/15 ML BTL PO PRN (11:40)
[2019-06-21] MEDS ORDERED: IBUPROFEN 400 MG TABLET (FP) PO PRN (11:40)
[2019-06-21] MEDS ORDERED: ACETAMINOPHEN 325 MG TABLET (FP) PO PRN ×2 (11:40)
[2019-06-21] MEDS ORDERED: MAGNESIUM CITRATE 300 ML BOTTLE PO PRN (11:40)
[2019-06-21] MEDS ORDERED: MELATONIN 5 MG TABLETS PO PRN (11:40)
[2019-06-21] MEDS ORDERED: MAG HYDROX/AL HYDROX/SIMETH 30 ML UNIT-DOSE CUP PO PRN (11:40)
[2019-06-21] MEDS ORDERED: MENTHOL/PHENOL 1 EACH UD MM PRN (11:40)
[2019-06-21] MEDS ORDERED: METHOCARBAMOL 500 MG TABLET PO PRN (11:40)
[2019-06-21] MEDS ORDERED: chlordiazePOXIDE HCL 25 MG CAPSULE PO PRN (11:40)
[2019-06-21] MEDS ORDERED: MAGNESIUM HYDROX 2400MG/30ML ORAL SUSPENSION 30 ML CUP PO PRN (11:40)
[2019-06-21] MEDS ORDERED: hydrOXYzine PAMOATE 25 MG CAPSULE (FP) PO PRN (11:40)
[2019-06-21] MEDS ORDERED: clonazePAM 0.5 MG TABLET PO PRN (12:31)
[2019-06-21] MEDS ORDERED: cloNIDine HCL 0.1 MG TABLET PO PRN (14:17)
[2019-06-21] MEDS ORDERED: METHADONE HCL 10 MG TABLET (FOR DETOX USE ONLY) PO ONE (14:55)
--- NOTE | 2019-06-21 15:14 | CONSULT ---
[facility] Psychiatric Consult - Data Date of interview: 06/21/19 Admission source: [facility] Identifying data: Revisit to [facility] and admission to [address] [place] [address] for this 33 y/o male self-referred for detoxification treatment. ARSLAN issues : heroin, xanax. Mr Severino is single, a father of one, domiciled (lives in a rented room) and currently employed ([employer] worker). Substance Abuse History: Discussed with the patient. Details in current [facility] report as follows : Smoking history: Current some day smoker. Have you smoked in the past 12 months: Yes. Aproximately how many cigarettes per day: 1. Hx Chewing Tobacco Use: No. Initiated information on smoking cessation: Yes. ' Breaking Loose' booklet given: 06/21/19. - Substances abused. Heroin. Substance route: Inhalation. Frequency: Daily. Amount used: 6-7 bags. Age of first use: 26. Date of last use: 06/20/19. Alprazolam (Xanax). Substance route: Oral. Frequency: Daily. Amount used: 4 mgs. Age of first use: 31. Date of last use: 06/20/19 Medical History: Medical profile is remarkable for recent cardiorespiratory ressuscitation at [address] [place] [address] (08/26/18), bronchial asthma, withdrawal-related seizure disorder and newly diagnosed atrial fibrillation. Psychiatric History: Patient is already known to this director underwriter sales from previous admissions to [facility]. Mr Severino is reported as having his first psychiatric breakdown in January 2017 (he attempted to commit suicide at the news of his brother from a drug overdose. Patient got admitted to [facility]. He got diagnosed with MDD. Circumstances of admission : suicidal ideation / intent to jump in front of traffic. Was committed for one month. Treated with lexapro 20 mg/day + trazodone 100 mg/hs. Stabilized and referred to [facility] for aftercare (currently prescribed lexapro 20 mg po daily + risperdal 2 mg/hs + trazodone 100 mg/hs). Patient admits to sub-optimal adherence to medications. No history of suicide attempts prior to 2016. Physical/Sexual Abuse/Trauma History: Heavy stressors : separation from 13 y/o daughter, lack of vocational skills, addictions and absence of a support network. Additional Comment: Urine drug screen results: FEN-Fentanyl, MOP-Opiates, MTD- Methadone, BZO-Benzodiazepines. Noted. Mental Status Exam - Mental Status Exam Alert and Oriented to: Time, Place, Person Cognitive Function: Good Patient Appearance: Well Groomed Mood: Nervous, Withdrawn, Anxious Affect: Mood Congruent, Constricted Patient Behavior: Fatigued Speech Pattern: Clear, Appropriate Voice Loudness: Normal Thought Process: Goal Oriented Thought Disorder: Not Present Hallucinations: Denies Suicidal Ideation: Denies Homicidal Ideation: Denies Insight/Judgement: Poor Sleep: Fair Appetite: Good Gait/Station: [place] Psychiatric Findings - Problem List ([place] 1, 2,3) (1) Opioid dependence with withdrawal Current Visit: Yes Status: Acute (2) 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 (3) Substance induced mood disorder Current Visit: Yes Status: Chronic (4) History of depression Current Visit: Yes Status: Chronic (5) Non-compliance Current Visit: Yes Status: Chronic - Initial Treatment Plan Initial Treatment Plan: Interview is conducted with medical students in attendance (with the patient's full verbal authorization). Psychoeducation. Sleep hygiene. Detoxification. Will observe this patient on detoxification protocol ONLY (no justification for resumption of SSRI at this time). Vigilance for contraband. NA meetings. MAT services discussed with patient : expresses no interest. Declines to resume medications. Supportive therapy. Attempt made by director underwriter sales to contact [facility] at [phone] : voice mail (no message left) . Observation.
[2019-06-21 16:50] LABS: HEMATOCRIT 41.4 % (35.4-49); HEMOGLOBIN 14.1 GM/dL (11.7-16.9); MCH 30.3 pg (25.7-33.7); MEAN CELL VOLUME 89.1 fl (80-96); MEAN PLT VOLUME 10.2 fl (7.5-11.1); PLATELET COUNT 204 K/MM3 (134-434); RBC 4.64 M/mm3 (4.00-5.60); RDW 13.4 % (11.9-15.9); WHITE BLOOD COUNT 7.2 K/mm3 (4.0-10.0)
[2019-06-21] MEDS: diazePAM 5 MG TABLET PO PRN ×2 (17:04→22:19)
[2019-06-21 17:08] LABS: ALBUMIN 4.1 g/dl (3.4-5.0); BILIRUBIN,TOTAL 0.4 mg/dL (0.2-1); BLOOD UREA NITROGEN 9.5 mg/dL (7-18); CALCIUM 9.1 mg/dL (8.5-10.1); POTASSIUM 4.3 mmol/L (3.5-5.1); TOT PROT 7.3 g/dl (6.4-8.2)
[2019-06-21] MEDS ORDERED: ALPRAZolam 2 MG TABLET PO SCH (22:00)
[2019-06-21] MEDS ORDERED: QUEtiapine FUMARATE 100 MG TABLET (FP) PO SCH (22:00)
[2019-06-21] MEDS ORDERED: traZODone HCL 150 MG TABLET PO SCH (22:00)
[2019-06-21] MEDS: THIAMINE HCL 100 MG TABLET (FP) PO SCH (22:19)
[2019-06-22] MEDS ORDERED: METHADONE HCL 5 MG TABLET (FOR DETOX USE ONLY) ONE (09:21)
[2019-06-22] MEDS ORDERED: METHADONE HCL 10 MG TABLET (FOR DETOX USE ONLY) ONE (09:21)
[2019-06-22] MEDS ORDERED: LOPERAMIDE HCL 2 MG CAPSULE PO ONE (09:51)
[2019-06-22] MEDS ORDERED: ACETAMINOPHEN 325 MG TABLET (FP) PO ONE (09:52)
[2019-06-22] MEDS ORDERED: DICYCLOMINE HCL 10 MG CAPSULE PO ONE (09:56)
--- NOTE | 2019-06-22 09:56 | PN ---
[facility] COWS - Scale Resting Pulse: 2= [place] 101-120 Sweatin= Chills/Flushing Restless Observation: 0= Sits Still Pupil Size: 1= Pupils >than Normal Bone or Joint Aches: 1= Mild Discomfort Runny Nose/ Eye Tearin= Nasal Congestion GI Upset > 30mins: 2= Nausea/Diarrhea Tremor Observation of Outstretched Hands: 2= Slight Tremor Visible Yawning Observation: 0= None Anxiety or Irritability: 2=Irritable/Anxious Goose Flesh Skin: 3=Piloerection COWS Score: 15 [facility]HS Progress Note (SOAP) Subjective: 34 years old male admitted on 06/21/19 for opiate withdrawal sx management treating with methadone detox regimen c/o headache and joint aches tylenal 650 mg po x 1 reports loose stool imodium 4mg po x 1 c/o stomach indigestion with acid pepcide 20 mg po bid bentyl 20 mg po x 1 Objective: 06/22/19 09:57 Vital Signs Temperature 100.2 F H 06/22/19 09:02 Pulse Rate 104 H 06/22/19 09:02 Respiratory Rate 18 06/22/19 09:02 Blood Pressure 116/75 06/22/19 09:02 O2 Sat by Pulse Oximetry (%) Laboratory Last Values WBC 7.2 K/mm3 (4.0-10.0) 06/21/19 13:15 RBC 4.64 M/mm3 (4.00-5.60) 06/21/19 13:15 Hgb 14.1 GM/dL (11.7-16.9) 06/21/19 13:15 Hct 41.4 % (35.4-49) 06/21/19 13:15 MCV 89.1 fl (80-96) 06/21/19 13:15 MCH 30.3 pg (25.7-33.7) 06/21/19 13:15 MCHC 34.0 g/dl (32.0-35.9) 06/21/19 13:15 RDW 13.4 % (11.9-15.9) 06/21/19 13:15 Plt Count 204 K/MM3 (134-434) 06/21/19 13:15 MPV 10.2 fl (7.5-11.1) 06/21/19 13:15 Sodium 136 mmol/L (136-145) 06/21/19 13:15 Potassium 4.3 mmol/L (3.5-5.1) 06/21/19 13:15 Chloride 104 mmol/L (98-107) 06/21/19 13:15 Carbon Dioxide 25 mmol/L (21-32) 06/21/19 13:15 Anion Gap 7 MMOL/L (8-16) L 06/21/19 13:15 BUN 9.5 mg/dL (7-18) 06/21/19 13:15 Creatinine 1.0 mg/dL (0.55-1.3) 06/21/19 13:15 Est GFR (CKD-EPI)AfAm 111.73 06/21/19 13:15 Est GFR (CKD-EPI)NonAf 96.40 06/21/19 13:15 Random Glucose 53 mg/dL (74-106) L 06/21/19 13:15 Calcium 9.1 mg/dL (8.5-10.1) 06/21/19 13:15 Total Bilirubin 0.4 mg/dL (0.2-1) 06/21/19 13:15 AST 17 U/L (15-37) 06/21/19 13:15 ALT 17 U/L (13-61) 06/21/19 13:15 Alkaline Phosphatase 116 U/L (45-117) 06/21/19 13:15 Total Protein 7.3 g/dl (6.4-8.2) 06/21/19 13:15 Albumin 4.1 g/dl (3.4-5.0) 06/21/19 13:15 RPR Titer Nonreactive (NONREACTIVE) 06/21/19 13:15 lab noted Assessment: 06/22/19 09:57opiate withdrawal Plan: methadone regimen
[2019-06-22] MEDS ORDERED: ESCITALOPRAM OXALATE 20 MG TABLET (FP) PO SCH (10:00)
[2019-06-22] MEDS ORDERED: METHADONE (DETOX) 20 MG, METHADONE (DETOX) 5 MG PO ONE (10:00)
[2019-06-22] MEDS: FAMOTIDINE 20 MG TABLET PO SCH ×2 (10:22→22:12)
[2019-06-22] MEDS: PRENATAL VITAMINS W/ FOLIC ACID TABLET (FP) PO SCH (10:23)
[2019-06-22] MEDS: diazePAM 5 MG TABLET PO PRN ×3 (10:23→22:13)
[2019-06-22] MEDS: THIAMINE HCL 100 MG TABLET (FP) PO SCH (22:12)
[2019-06-23] MEDS ORDERED: chlordiazePOXIDE HCL 25 MG CAPSULE PO SCH (05:00)
[2019-06-23] MEDS: diazePAM 5 MG TABLET PO PRN (08:49)
[2019-06-23 09:09] VITALS: BP 106/76; PULSE 93; TEMP 97.7
[2019-06-23] MEDS ORDERED: METHADONE HCL 10 MG TABLET (FOR DETOX USE ONLY) PO ONE (10:00)
--- NOTE | 2019-06-23 10:01 | PN ---
[facility] Progress Note Note: Psychiatry Attending's note (follow-up) : Met with patient at bedside. Mr Severino requested to resume seroquel at bedtime. Complains of insomnia. Still with mild withdrawal symptoms. Sleep hygiene re-discussed with the patient. Support provided. Director Of Marketing Analytics re-contacted [facility] at [phone]
[2019-06-23] MEDS: FAMOTIDINE 20 MG TABLET PO SCH (10:17)
[2019-06-23] MEDS: PRENATAL VITAMINS W/ FOLIC ACID TABLET (FP) PO SCH (10:18)
--- NOTE | 2019-06-23 10:25 | PN ---
[facility] CIWA - CIWA Score Nausea/Vomitin-Mild Nausea/No Vomiting Muscle Tremors: 2 Anxiety: 2 Agitation: 2 Paroxysmal Sweats: No Perspiration Orientation: 0-Oriented Tacttile Disturbances: 1-Very Mild Itch/Numbness Auditory Disturbances: 0-None Visual Disturbances: 0-None Headache: 2-Mild CIWA-Ar Total Score: 10 [facility] COWS - Scale Resting Pulse: 1= [place] 81-100 Sweatin= No chills or Flushing Restless Observation: 1= Difficult to Sit Still Pupil Size: 1= Pupils >than Normal Bone or Joint Aches: 2= Severe Diffuse Aches Runny Nose/ Eye Tearin= Nasal Congestion GI Upset > 30mins: 1= Stomach Cramp Tremor Observation of Outstretched Hands: 1= Tremor [place], Not Seen Yawning Observation: 1= 1-2x During Session Anxiety or Irritability: 2=Irritable/Anxious Goose Flesh Skin: 0=Smooth Skin COWS Score: 11 [facility] Progress Note (SOAP) Subjective: alert,irritable,anxious,interrupted sleep,pain in the body,back Objective: 06/23/19 10:23 Vital Signs Temperature 97.7 F 06/23/19 09:08 Pulse Rate 93 H 06/23/19 09:08 Respiratory Rate 18 06/23/19 09:08 Blood Pressure 106/76 06/23/19 09:08 O2 Sat by Pulse Oximetry (%) Laboratory Last Values WBC 7.2 K/mm3 (4.0-10.0) 06/21/19 13:15 RBC 4.64 M/mm3 (4.00-5.60) 06/21/19 13:15 Hgb 14.1 GM/dL (11.7-16.9) 06/21/19 13:15 Hct 41.4 % (35.4-49) 06/21/19 13:15 MCV 89.1 fl (80-96) 06/21/19 13:15 MCH 30.3 pg (25.7-33.7) 06/21/19 13:15 MCHC 34.0 g/dl (32.0-35.9) 06/21/19 13:15 RDW 13.4 % (11.9-15.9) 06/21/19 13:15 Plt Count 204 K/MM3 (134-434) 06/21/19 13:15 MPV 10.2 fl (7.5-11.1) 06/21/19 13:15 Sodium 136 mmol/L (136-145) 06/21/19 13:15 Potassium 4.3 mmol/L (3.5-5.1) 06/21/19 13:15 Chloride 104 mmol/L (98-107) 06/21/19 13:15 Carbon Dioxide 25 mmol/L (21-32) 06/21/19 13:15 Anion Gap 7 MMOL/L (8-16) L 06/21/19 13:15 BUN 9.5 mg/dL (7-18) 06/21/19 13:15 Creatinine 1.0 mg/dL (0.55-1.3) 06/21/19 13:15 Est GFR (CKD-EPI)AfAm 111.73 06/21/19 13:15 Est GFR (CKD-EPI)NonAf 96.40 06/21/19 13:15 Random Glucose 53 mg/dL (74-106) L 06/21/19 13:15 Calcium 9.1 mg/dL (8.5-10.1) 06/21/19 13:15 Total Bilirubin 0.4 mg/dL (0.2-1) 06/21/19 13:15 AST 17 U/L (15-37) 06/21/19 13:15 ALT 17 U/L (13-61) 06/21/19 13:15 Alkaline Phosphatase 116 U/L (45-117) 06/21/19 13:15 Total Protein 7.3 g/dl (6.4-8.2) 06/21/19 13:15 Albumin 4.1 g/dl (3.4-5.0) 06/21/19 13:15 RPR Titer Nonreactive (NONREACTIVE) 06/21/19 13:15 Assessment: 06/23/19 10:24 withdrawal symptom Plan: continue detox methadone regimen,valium 10 mpg po q 4hrs prn for 72 hrs
--- NOTE | 2019-06-23 11:51 | DS ---
[facility] Detox Discharge Summary Admission Date: 06/21/19 Discharge Date: 06/23/19 - History Present History: Alcohol Dependence, Opioid Dependence Additional Comments: patient did not want to complete treatment,all attempts to convince patient to stay with no avail, high risks of relapsing explained,patient signed release ama,advise to call [phone] if not feeling well - Physical Exam Results Vital Signs: Vital Signs Temperature 97.7 F 06/23/19 09:08 Pulse Rate 93 H 06/23/19 09:08 Respiratory Rate 18 06/23/19 09:08 Blood Pressure 106/76 06/23/19 09:08 O2 Sat by Pulse Oximetry (%) Pertinent Admission Physical Exam Findings: withdrawal signs and symptom Laboratory Last Values WBC 7.2 K/mm3 (4.0-10.0) 06/21/19 13:15 RBC 4.64 M/mm3 (4.00-5.60) 06/21/19 13:15 Hgb 14.1 GM/dL (11.7-16.9) 06/21/19 13:15 Hct 41.4 % (35.4-49) 06/21/19 13:15 MCV 89.1 fl (80-96) 06/21/19 13:15 MCH 30.3 pg (25.7-33.7) 06/21/19 13:15 MCHC 34.0 g/dl (32.0-35.9) 06/21/19 13:15 RDW 13.4 % (11.9-15.9) 06/21/19 13:15 Plt Count 204 K/MM3 (134-434) 06/21/19 13:15 MPV 10.2 fl (7.5-11.1) 06/21/19 13:15 Sodium 136 mmol/L (136-145) 06/21/19 13:15 Potassium 4.3 mmol/L (3.5-5.1) 06/21/19 13:15 Chloride 104 mmol/L (98-107) 06/21/19 13:15 Carbon Dioxide 25 mmol/L (21-32) 06/21/19 13:15 Anion Gap 7 MMOL/L (8-16) L 06/21/19 13:15 BUN 9.5 mg/dL (7-18) 06/21/19 13:15 Creatinine 1.0 mg/dL (0.55-1.3) 06/21/19 13:15 Est GFR (CKD-EPI)AfAm 111.73 06/21/19 13:15 Est GFR (CKD-EPI)NonAf 96.40 06/21/19 13:15 Random Glucose 53 mg/dL (74-106) L 06/21/19 13:15 Calcium 9.1 mg/dL (8.5-10.1) 06/21/19 13:15 Total Bilirubin 0.4 mg/dL (0.2-1) 06/21/19 13:15 AST 17 U/L (15-37) 06/21/19 13:15 ALT 17 U/L (13-61) 06/21/19 13:15 Alkaline Phosphatase 116 U/L (45-117) 06/21/19 13:15 Total Protein 7.3 g/dl (6.4-8.2) 06/21/19 13:15 Albumin 4.1 g/dl (3.4-5.0) 06/21/19 13:15 RPR Titer Nonreactive (NONREACTIVE) 06/21/19 13:15 Vital Signs Temperature 97.7 F 06/23/19 09:08 Pulse Rate 93 H 06/23/19 09:08 Respiratory Rate 18 06/23/19 09:08 Blood Pressure 106/76 06/23/19 09:08 O2 Sat by Pulse Oximetry (%) - Medication Discharge Medications: Ambulatory Orders Trazodone HCl 150 mg PO HS #30 tablet 11/05/18 Alprazolam [Xanax] 2 mg PO BID 03/29/19 Escitalopram Oxalate [Lexapro -] 20 mg PO DAILY 03/29/19 Naloxone HCl [Narcan] 4 mg NS ASDIR PRN #1 spray 03/30/19 Quetiapine Fumarate [Seroquel -] 100 mg PO HS 06/21/19 - Diagnosis (1) Depression Current Visit: Yes Status: Acute (2) Opioid dependence with withdrawal Current Visit: Yes Status: Acute (3) 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 - AMA Did Patient Leave Against Medical Advice: Yes
[2019-06-24] MEDS ORDERED: chlordiazePOXIDE HCL 10 MG CAPSULE PO PRN
[2019-06-24] MEDS ORDERED: chlordiazePOXIDE HCL 10 MG CAPSULE PO SCH (05:00)
[2019-06-24] MEDS ORDERED: METHADONE (DETOX) 10 MG, METHADONE (DETOX) 5 MG PO ONE (10:00)
[2019-06-25] MEDS ORDERED: chlordiazePOXIDE HCL 10 MG CAPSULE PO SCH (05:00)
[2019-06-25] MEDS ORDERED: METHADONE HCL 10 MG TABLET (FOR DETOX USE ONLY) PO ONE (10:00)
[2019-06-26] MEDS ORDERED: chlordiazePOXIDE HCL 10 MG CAPSULE PO ONE (05:00)
[2019-06-26] MEDS ORDERED: METHADONE HCL 5 MG TABLET (FOR DETOX USE ONLY) PO ONE (06:00)
== END 2019-06-23 11:44 | disposition left against medical advice (07) | DRG 770 ==
LOC: YASAS 09:57 → Y3N 11:52
PROVIDERS: ADMIT Allergy & Immunology; ATTEND Allergy & Immunology
PROC: HZ2ZZZZ Detoxification Services for Substance Abuse Treatment (ICD-10-PCS; principal; 2019-06-21)
DX: F11.23 Opioid dependence with withdrawal (principal); F10.230 Alcohol dependence with withdrawal, uncomplicated; F13.20 Sedative, hypnotic or anxiolytic dependence, uncomplicated; F19.24 Other psychoactive substance dependence with psychoactive substance-induced mood disorder; F32.9 Major depressive disorder, single episode, unspecified; F51.05 Insomnia due to other mental disorder; I48.91 Unspecified atrial fibrillation; Z91.5 Personal history of self-harm; Z88.8 Allergy status to other drugs, medicaments and biological substances; Z91.19 Patient's noncompliance with other medical treatment and regimen
CPT/HCPCS: 36415; 80053; 85027; 86593

== ENCOUNTER 2019-07-14 09:59 | Inpatient (IN) | payer OTHER ==
[2019-07-14 11:24] VITALS: BMI 26.1
--- NOTE | 2019-07-14 12:18 | HP ---
COWS - Scale Resting Pulse: 1= [place] 81-100 Sweatin= No chills or Flushing Restless Observation: 0= Sits Still Pupil Size: 0= Normal to Room Light Bone or Joint Aches: 1= Mild Discomfort Runny Nose/ Eye Tearin= Runny Nose/Eyes GI Upset > 30mins: 2= Nausea/Diarrhea Tremor Observation: 2= Slight Tremor Visible Yawning Observation: 0= None Anxiety or Irritability: 0= None Goose Flesh Skin: 0=Smooth Skin COWS Score: 8 CIWA Score - Admission Criteria OASAS Guidelines: Admission for Medically Managed Detox: Requires at least one of the followin. CIWA greater than 12 2. Seizures within the past 24 hours 3. Delirium tremens within the past 24 hours 4. Hallucinations within the past 24 hours 5. Acute intervention needed for co occurring medical disorder 6. Acute intervention needed for co occurring psychiatric disorder 7. Severe withdrawal that cannot be handled at a lower level of care (continued vomiting, continued diarrhea, abnormal vital signs) requiring intravenous medication and/or fluids 8. Admitting History and Physical - Admission Chief Complaint: Mr. Severino is a 34 yo gentleman who presents to [facility] requesting admission to Detox for heroin use. History of Present Illness: Mr. Severino is a 34 yo gentleman who presents to [facility] requesting admission to Detox for heroin use. He was last here about 6 weeks ago. He left stating his job called and he had to go in. PMH: noncontributory Psych: anxiety and depression on Xanax, Seroquel and Lexapro Substance use history: Heroin: first use age 27 yo, last use last night, quantity: 6-7 bags daily. Was in a methadone program [facility], last there 2 years ago. No history of ODs Denies: alchohl, MJ, cocaine, abuse of benzodiazepines History Source: Patient Limitations to Obtaining History: No Limitations - Past Medical History Cardiovascular: Yes: AFIB Psych: Yes: Anxiety, Depression - Past Surgical History Past Surgical History: Yes: None - Smoking History Have you smoked in the past 12 months: No - Alcohol/Substance Use Hx Alcohol Use: No - Social History ADL: Independent Occupation: unemployed History of Recent Travel: No Admission ROS S - HPI Chief Complaint: Mr. Severino states he wants to "detox of heroin". Allergies/Adverse Reactions: Allergies Allergy/AdvReac Type Severity Reaction Status Date / Time risperidone Allergy Severe Verified 07/14/19 11:16 - Ebola screening Have you traveled outside of the country in the last 21 days: No Have you had contact with anyone from an Ebola affected area: No Have you been sick,other than usual withdrawal symptoms: No Do you have a fever: No - Review of Systems Constitutional: No Symptoms Reported EENT: reports: No Symptoms Reported Respiratory: reports: No Symptoms reported Cardiac: reports: No Symptoms Reported GI: reports: Diarrhea, Nausea : reports: No Symptoms Reported Musculoskeletal: reports: No Symptoms Reported Integumentary: reports: No Symptoms Reported Neuro: reports: No Symptoms reported Endocrine: reports: No Symptoms Reported Hematology: reports: No Symptoms Reported Psychiatric: reports: Anxious, Depressed Patient History - Patient Medical History Hx Anemia: No Hx Asthma: No Hx Chronic Obstructive Pulmonary Disease (COPD): No Hx Cancer: No Hx Cardiac Disorders: No Hx Congestive Heart Failure: No Hx Hypertension: No Hx Hypercholesterolemia: No Hx Pacemaker: No HX Cerebrovascular Accident: No Hx Seizures: No Hx Dementia: No Hx Diabetes: No Hx Gastrointestinal Disorders: No Hx Liver Disease: No Hx Genitourinary Disorders: No Hx Sexually Transmitted Disorders: No Hx Renal Disease (ESRD): No Hx Thyroid Disease: No Hx Human Immunodeficiency Virus (HIV): No (last 08/25/18 negative) Hx Hepatitis C: No Hx Depression: Yes Hx Suicide Attempt: No Hx Bipolar Disorder: No Hx Schizophrenia: No - Patient Surgical History Past Surgical History: No Hx Neurologic Surgery: No Hx Cataract Extraction: No Hx Cardiac Surgery: No Hx Lung Surgery: No Hx Breast Surgery: No Hx Breast Biopsy: No Hx Abdominal Surgery: No Hx Appendectomy: No Hx Cholecystectomy: No Hx Genitourinary Surgery: No Hx Section: No Hx Orthopedic Surgery: No Anesthesia Reaction: No - PPD History Previous Implant?: Yes Documented Results: Negative w/proof Implanted On Prior R Admission?: Yes Date: 10/09/18 Results: 0 mm - Smoking Cessation Smoking history: Never smoked Have you smoked in the past 12 months: No Aproximately how many cigarettes per day: 1 Hx Chewing Tobacco Use: No Initiated information on smoking cessation: No - Substances abused Heroin Substance route: Inhalation Frequency: Daily Amount used: 6 bags Age of first use: 27 Date of last use: 02/04/20 Admission Physical Exam BHS - Vital Signs Vital Signs: Vital Signs - 24 hr 07/14/19 11:20 Temperature 98.3 F Pulse Rate 85 Respiratory 16 Rate Blood Pressure 137/94 - Physical General Appearance: Yes: Mild Distress HEENTM: Yes: Hearing grossly Normal, Normal Voice, DELFINA Respiratory: Yes: Within Normal Limits Neck: Yes: Within Normal Limits Breast: Yes: Breast Exam Deferred Cardiology: Yes: Regular Rate, S1, S2, Tachycardia Abdominal: Yes: Normal Bowel Sounds, Non Tender, Flat, Soft Back: Yes: Normal Inspection Musculoskeletal: Yes: Within Normal Limits Extremities: Yes: Within Normal Limits Neurological: Yes: Alert (anxious), Normal Response Integumentary: Yes: Within Normal Limits Lymphatic: Yes: Within Normal Limits - Diagnostic (1) Anxiety Current Visit: Yes Status: Acute (2) Depression Current Visit: Yes Status: Acute (3) Opioid dependence with withdrawal Current Visit: Yes Status: Acute Cleared for Admission [facility] - Detox or Rehab [facility] Level of Care: Medically Managed Breathalyzer - Breathalyzer Breathalyzer: 0 Urine Drug Screen - Test Device Lot number: [id number] Expiration date: 05/08/21 - Control Is test valid?: Yes - Results Drug screen NEGATIVE: No Urine drug screen results: FEN-Fentanyl, MOP-Opiates, BZO-Benzodiazepines Inpatient Rehab Admission - Rehab Decision to Admit Inpatient rehab admission?: No
[2019-07-14] MEDS ORDERED: METHOCARBAMOL 500 MG TABLET PO PRN (12:23)
[2019-07-14] MEDS ORDERED: MELATONIN 5 MG TABLETS PO PRN (12:23)
[2019-07-14] MEDS ORDERED: MENTHOL/PHENOL 1 EACH UD MM PRN (12:23)
[2019-07-14] MEDS ORDERED: MAGNESIUM HYDROX 2400MG/30ML ORAL SUSPENSION 30 ML CUP PO PRN (12:23)
[2019-07-14] MEDS ORDERED: hydrOXYzine PAMOATE 25 MG CAPSULE (FP) PO PRN (12:23)
[2019-07-14] MEDS ORDERED: IBUPROFEN 400 MG TABLET (FP) PO PRN (12:23)
[2019-07-14] MEDS ORDERED: cloNIDine HCL 0.1 MG TABLET PO PRN (12:23)
[2019-07-14] MEDS ORDERED: MAG HYDROX/AL HYDROX/SIMETH 30 ML UNIT-DOSE CUP PO PRN (12:23)
[2019-07-14] MEDS ORDERED: BISMUTH SUBSALICYLATE 524 MG/30 ML UD PO PRN (12:23)
[2019-07-14] MEDS ORDERED: MAGNESIUM CITRATE 300 ML BOTTLE PO PRN (12:23)
[2019-07-14] MEDS ORDERED: ACETAMINOPHEN 325 MG TABLET (FP) PO PRN (12:23)
[2019-07-14] MEDS ORDERED: METHADONE HCL 10 MG TABLET (FOR DETOX USE ONLY) PO ONE (13:45)
[2019-07-14] MEDS: ACETAMINOPHEN 325 MG TABLET (FP) PO PRN (14:52)
[2019-07-14] MEDS: diazePAM 5 MG TABLET PO PRN ×2 (14:53→23:02)
[2019-07-14 18:01] LABS: HEMATOCRIT 45.1 % (35.4-49); HEMOGLOBIN 15.4 GM/dL (11.7-16.9); MCH 30.4 pg (25.7-33.7); MCHC 34.1 g/dl (32.0-35.9); MEAN CELL VOLUME 89.1 fl (80-96); MEAN PLT VOLUME 10.1 fl (7.5-11.1); PLATELET COUNT 214 K/MM3 (134-434); RBC 5.06 M/mm3 (4.00-5.60); RDW 13.8 % (11.9-15.9); WHITE BLOOD COUNT 8.9 K/mm3 (4.0-10.0)
[2019-07-14 18:22] LABS: ALBUMIN 4.3 g/dl (3.4-5.0); BILIRUBIN,TOTAL 0.4 mg/dL (0.2-1); BLOOD UREA NITROGEN 11.8 mg/dL (7-18); CALCIUM 9.3 mg/dL (8.5-10.1); CREATININE 1.1 mg/dL (0.55-1.3); POTASSIUM 3.5 mmol/L (3.5-5.1); TOT PROT 7.9 g/dl (6.4-8.2)
[2019-07-14] MEDS: THIAMINE HCL 100 MG TABLET (FP) PO SCH (22:02)
[2019-07-15] MEDS ORDERED: METHADONE (DETOX) 20 MG, METHADONE (DETOX) 5 MG PO ONE (10:00)
[2019-07-15] MEDS ORDERED: TRIMETHOBENZAMIDE HCL 200MG/2ML INJ IM PRN (10:36)
[2019-07-15] MEDS ORDERED: METHADONE DETOX 10 MG/1 ML [20ML VIAL] IM ONE (10:44)
--- NOTE | 2019-07-15 10:54 | PN ---
BHS COWS - Scale Resting Pulse: 0= [place] 80 or Below Sweatin= Chills/Flushing Restless Observation: 1= Difficult to Sit Still Pupil Size: 0= Normal to Room Light Bone or Joint Aches: 2= Severe Diffuse Aches Runny Nose/ Eye Tearin= Runny Nose/Eyes GI Upset > 30mins: 3= Vomiting/Diarrhea Tremor Observation of Outstretched Hands: 2= Slight Tremor Visible Yawning Observation: 2= >3x During Session Anxiety or Irritability: 2=Irritable/Anxious Goose Flesh Skin: 0=Smooth Skin COWS Score: 15 BHS Progress Note (SOAP) Subjective: nausea/vomiting sweats irritable agitation restless Objective: 07/15/19 10:50 Vital Signs Temperature 98.2 F 07/15/19 09:02 Pulse Rate 80 07/15/19 09:02 Respiratory Rate 14 07/15/19 09:02 Blood Pressure 117/77 07/15/19 09:02 O2 Sat by Pulse Oximetry (%) Laboratory Tests 07/14/19 07/14/19 12:45 12:45 WBC 8.9 RBC 5.06 Hgb 15.4 Hct 45.1 MCV 89.1 MCH 30.4 MCHC 34.1 RDW 13.8 Plt Count 214 MPV 10.1 Sodium 137 Potassium 3.5 Chloride 100 Carbon Dioxide 31 Anion Gap 6 L BUN 11.8 Creatinine 1.1 Est GFR (CKD-EPI)AfAm 99.57 Est GFR (CKD-EPI)NonAf 85.91 Random Glucose 107 H Calcium 9.3 Total Bilirubin 0.4 AST 14 L ALT 20 Alkaline Phosphatase 110 Total Protein 7.9 Albumin 4.3 labs noted aaox3 ambulating no acute distress Assessment: 07/15/19 10:51 withdrawals noted vomiting noted Plan: tigan IM prn methadone 12.5mg IM x one ordered valium 10mg q4hr x 3 days
--- NOTE | 2019-07-15 10:59 | PN ---
[facility] Progress Note Note: I had a discussion with Dr. Acevedo regarding pt insisting on getting xanax; a contract and long discussion prior to his admission was provided and where pt agreed that there will be no xanax ordered; however we will order valium 5mg q8hr prn. Pt at the time agreed. Pt was re-assessed this morning and pt will benefit with valium 10mg q4hrs x 3days and will continue to monitor him. Pt will be moved closer to nurses station for continued observation and continuity of care. pt in agreement.
[2019-07-15] MEDS: PRENATAL VITAMINS W/ FOLIC ACID TABLET (FP) PO SCH (11:07)
--- NOTE | 2019-07-15 11:56 | CONSULT ---
[facility] Psychiatric Consult - Data Date of interview: 07/15/19 Admission source: Self-referred Identifying data: Mr Severino is a 34 years old single male, father of, employed at [employer], domiciled seeking detox treatment for opioid Substance Abuse History: Reports history of heroin use. Refer to addiction counselor's summary for further information Medical History: Significant for history of atrial fibrillation. Psychiatric History: Patient is known to this facility from previous admissions. Historical narrative remains consistent. He reports that his first psychiatric contact occured in January 2017 when he attempted to commit suicide at the news of his brother from a drug overdose. Reports that he was admitted to [facility] for one month, diagnosed with MDD and started on Lexapro 20 mg/day and Trazadone 100 mg/hs. On discharge , he was referred to [facility] for aftercare. Reports that he is still receiving outpatient psychiatric treatment at [facility] and he is currently prescrobed Lexapro 20 mg/day, Seroquel 300 mg/hs, Ambien 10 mg/hs, Xanax 2 mg/bid. Medications verified by [phone] [facility] at [address] [place] [address] where scripts for these medications were last filled on 07/06/19. Patient admits to sub-optimal adherence to medications. Denies previous suicide attempts prior to 2016. At present, reports feeling depressed, anxious and sleeping poorly Physical/Sexual Abuse/Trauma History: Heavy stressors : separation from 13 y/o daughter, lack of vocational skills, addictions and absence of a support Mental Status Exam - Mental Status Exam Alert and Oriented to: Time, Place, Person Cognitive Function: Fair Patient Appearance: Disheveled Mood: Depressed, Anxious Patient Behavior: Cooperative Speech Pattern: Clear Voice Loudness: Normal Thought Process: Intact, Goal Oriented Thought Disorder: Not Present Hallucinations: Denies Suicidal Ideation: Denies Homicidal Ideation: Denies Insight/Judgement: Poor Sleep: Poorly Appetite: Poor Muscle strength/Tone: Normal Gait/Station: Normal Psychiatric Findings - Problem List ([place] 1, 2,3) (1) MDD (major depressive disorder) Current Visit: No Status: Chronic (2) Substance induced mood disorder Current Visit: No Status: Acute (3) Substance-induced sleep disorder Current Visit: No Status: Acute (4) Opioid dependence with withdrawal Current Visit: Yes Status: Acute (5) Afib Current Visit: Yes Status: Resolved - Initial Treatment Plan Initial Treatment Plan: 1) Continue Lexapro 20 mg po daily and Seroquel 300 mg po HS. 2) Start Belsomra 10 mg po HS prn for insomnia. 3) Continue inpatient detoxification
[2019-07-15] MEDS: diazePAM 5 MG TABLET PO PRN ×2 (12:30→16:37)
[2019-07-15] MEDS ORDERED: P-EPHED 60MG/TRIPROLIDI 2.5MG TABLET PO PRN (14:09)
[2019-07-15] MEDS: ACETAMINOPHEN 325 MG TABLET (FP) PO PRN (14:17)
[2019-07-15] MEDS: ESCITALOPRAM OXALATE 20 MG TABLET PO SCH (16:38)
[2019-07-15] MEDS ORDERED: SUVOREXANT 10 MG TABLET PO PRN (22:00)
[2019-07-15] MEDS: THIAMINE HCL 100 MG TABLET (FP) PO SCH (22:39)
[2019-07-15] MEDS: QUEtiapine FUMARATE 300 MG TABLET PO SCH (22:40)
[2019-07-16] MEDS: diazePAM 5 MG TABLET PO PRN ×4 (07:44→22:16)
[2019-07-16] MEDS ORDERED: METHADONE HCL 10 MG TABLET (FOR DETOX USE ONLY) PO ONE (10:00)
--- NOTE | 2019-07-16 10:35 | PN ---
S COWS - Scale Resting Pulse: 0= [place] 80 or Below Sweatin= No chills or Flushing Restless Observation: 1= Difficult to Sit Still Pupil Size: 1= Pupils >than Normal Bone or Joint Aches: 1= Mild Discomfort Runny Nose/ Eye Tearin= Runny Nose/Eyes GI Upset > 30mins: 1= Stomach Cramp Tremor Observation of Outstretched Hands: 1= Tremor [place], Not Seen Yawning Observation: 1= 1-2x During Session Anxiety or Irritability: 2=Irritable/Anxious Goose Flesh Skin: 0=Smooth Skin COWS Score: 10 [facility] Progress Note (SOAP) Subjective: alert,irritable,anxious,interrupted sleep,pain in the body and back,tremor Objective: 07/16/19 10:34 Vital Signs Temperature 98.2 F 07/16/19 09:08 Pulse Rate 72 07/16/19 09:08 Respiratory Rate 17 07/16/19 09:08 Blood Pressure 122/56 L 07/16/19 09:08 O2 Sat by Pulse Oximetry (%) Laboratory Last Values WBC 8.9 K/mm3 (4.0-10.0) 07/14/19 12:45 RBC 5.06 M/mm3 (4.00-5.60) 07/14/19 12:45 Hgb 15.4 GM/dL (11.7-16.9) 07/14/19 12:45 Hct 45.1 % (35.4-49) 07/14/19 12:45 MCV 89.1 fl (80-96) 07/14/19 12:45 MCH 30.4 pg (25.7-33.7) 07/14/19 12:45 MCHC 34.1 g/dl (32.0-35.9) 07/14/19 12:45 RDW 13.8 % (11.9-15.9) 07/14/19 12:45 Plt Count 214 K/MM3 (134-434) 07/14/19 12:45 MPV 10.1 fl (7.5-11.1) 07/14/19 12:45 Sodium 137 mmol/L (136-145) 07/14/19 12:45 Potassium 3.5 mmol/L (3.5-5.1) 07/14/19 12:45 Chloride 100 mmol/L (98-107) 07/14/19 12:45 Carbon Dioxide 31 mmol/L (21-32) 07/14/19 12:45 Anion Gap 6 MMOL/L (8-16) L 07/14/19 12:45 BUN 11.8 mg/dL (7-18) 07/14/19 12:45 Creatinine 1.1 mg/dL (0.55-1.3) 07/14/19 12:45 Est GFR (CKD-EPI)AfAm 99.57 07/14/19 12:45 Est GFR (CKD-EPI)NonAf 85.91 07/14/19 12:45 Random Glucose 107 mg/dL (74-106) H 07/14/19 12:45 Calcium 9.3 mg/dL (8.5-10.1) 07/14/19 12:45 Total Bilirubin 0.4 mg/dL (0.2-1) 07/14/19 12:45 AST 14 U/L (15-37) L 07/14/19 12:45 ALT 20 U/L (13-61) 07/14/19 12:45 Alkaline Phosphatase 110 U/L (45-117) 07/14/19 12:45 Total Protein 7.9 g/dl (6.4-8.2) 07/14/19 12:45 Albumin 4.3 g/dl (3.4-5.0) 07/14/19 12:45 RPR Titer Nonreactive (NONREACTIVE) 07/14/19 12:45 Assessment: 07/16/19 10:34 withdrawal symptom Plan: continue detox methadone regimen,valium 10 mgs po q 4 hrs prn for 72 hrs
[2019-07-16] MEDS: PRENATAL VITAMINS W/ FOLIC ACID TABLET (FP) PO SCH (10:49)
[2019-07-16] MEDS: ESCITALOPRAM OXALATE 20 MG TABLET PO SCH (10:49)
[2019-07-16] MEDS: ACETAMINOPHEN 325 MG TABLET (FP) PO PRN (16:21)
[2019-07-16] MEDS: THIAMINE HCL 100 MG TABLET (FP) PO SCH (22:13)
[2019-07-16] MEDS: QUEtiapine FUMARATE 300 MG TABLET PO SCH (22:14)
[2019-07-17] MEDS ORDERED: METHADONE HCL 10 MG TABLET (FOR DETOX USE ONLY) ONE (09:46)
[2019-07-17] MEDS ORDERED: METHADONE HCL 5 MG TABLET (FOR DETOX USE ONLY) ONE (09:46)
[2019-07-17] MEDS ORDERED: METHADONE (DETOX) 10 MG, METHADONE (DETOX) 5 MG PO ONE (10:00)
[2019-07-17] MEDS: PRENATAL VITAMINS W/ FOLIC ACID TABLET (FP) PO SCH (10:36)
[2019-07-17] MEDS: ESCITALOPRAM OXALATE 20 MG TABLET PO SCH (10:36)
[2019-07-17] MEDS: diazePAM 5 MG TABLET PO PRN ×3 (10:38→18:50)
--- NOTE | 2019-07-17 11:02 | PN ---
BHS COWS - Scale Resting Pulse: 0= [place] 80 or Below Sweatin= Chills/Flushing Restless Observation: 1= Difficult to Sit Still Pupil Size: 0= Normal to Room Light Bone or Joint Aches: 1= Mild Discomfort Runny Nose/ Eye Tearin= Nasal Congestion GI Upset > 30mins: 2= Nausea/Diarrhea Tremor Observation of Outstretched Hands: 2= Slight Tremor Visible Yawning Observation: 0= None Anxiety or Irritability: 1=Feels Anxious/Irritable Goose Flesh Skin: 0=Smooth Skin COWS Score: 9 S Progress Note (SOAP) Subjective: Sweats, shakes, abdominal cramps, backache and interrupted sleep Objective: 07/17/19 11:00 Withdrawal sx Vital Signs 07/17/19 07/17/19 03:37 06:24 Temperature 97.9 F Pulse Rate 71 Respiratory 18 16 Rate Blood Pressure 101/59 L VSS Laboratory Last Values WBC 8.9 K/mm3 (4.0-10.0) 07/14/19 12:45 RBC 5.06 M/mm3 (4.00-5.60) 07/14/19 12:45 Hgb 15.4 GM/dL (11.7-16.9) 07/14/19 12:45 Hct 45.1 % (35.4-49) 07/14/19 12:45 MCV 89.1 fl (80-96) 07/14/19 12:45 MCH 30.4 pg (25.7-33.7) 07/14/19 12:45 MCHC 34.1 g/dl (32.0-35.9) 07/14/19 12:45 RDW 13.8 % (11.9-15.9) 07/14/19 12:45 Plt Count 214 K/MM3 (134-434) 07/14/19 12:45 MPV 10.1 fl (7.5-11.1) 07/14/19 12:45 Sodium 137 mmol/L (136-145) 07/14/19 12:45 Potassium 3.5 mmol/L (3.5-5.1) 07/14/19 12:45 Chloride 100 mmol/L (98-107) 07/14/19 12:45 Carbon Dioxide 31 mmol/L (21-32) 07/14/19 12:45 Anion Gap 6 MMOL/L (8-16) L 07/14/19 12:45 BUN 11.8 mg/dL (7-18) 07/14/19 12:45 Creatinine 1.1 mg/dL (0.55-1.3) 07/14/19 12:45 Est GFR (CKD-EPI)AfAm 99.57 07/14/19 12:45 Est GFR (CKD-EPI)NonAf 85.91 07/14/19 12:45 Random Glucose 107 mg/dL (74-106) H 07/14/19 12:45 Calcium 9.3 mg/dL (8.5-10.1) 07/14/19 12:45 Total Bilirubin 0.4 mg/dL (0.2-1) 07/14/19 12:45 AST 14 U/L (15-37) L 07/14/19 12:45 ALT 20 U/L (13-61) 07/14/19 12:45 Alkaline Phosphatase 110 U/L (45-117) 07/14/19 12:45 Total Protein 7.9 g/dl (6.4-8.2) 07/14/19 12:45 Albumin 4.3 g/dl (3.4-5.0) 07/14/19 12:45 RPR Titer Nonreactive (NONREACTIVE) 07/14/19 12:45 Labs noted, no panic values Assessment: 07/17/19 11:01 Withdrawal sx Plan: Continue detox
[2019-07-17] MEDS: ACETAMINOPHEN 325 MG TABLET (FP) PO PRN (12:36)
--- NOTE | 2019-07-17 14:36 | EKG ---
Test Reason : Blood Pressure : / mmHG Vent. Rate : 071 BPM Atrial Rate : 071 BPM P-R Int : 150 ms QRS Dur : 082 ms QT Int : 384 ms P-R-T Axes : 064 042 023 degrees QTc Int : 417 ms NORMAL SINUS RHYTHM NORMAL ECG Confirmed by MD MCINTYRE GREGORY ([id number]) on 07/17/2019 2:36:18 PM Referred By: Confirmed By:MAC MCINTYRE MD
[2019-07-17] MEDS: QUEtiapine FUMARATE 300 MG TABLET PO SCH (22:23)
[2019-07-17] MEDS: THIAMINE HCL 100 MG TABLET (FP) PO SCH (22:23)
[2019-07-18] MEDS ORDERED: METHADONE HCL 10 MG TABLET (FOR DETOX USE ONLY) PO ONE (10:00)
[2019-07-18] MEDS: PRENATAL VITAMINS W/ FOLIC ACID TABLET (FP) PO SCH (10:05)
[2019-07-18] MEDS: ESCITALOPRAM OXALATE 20 MG TABLET PO SCH (10:06)
[2019-07-18] MEDS: diazePAM 5 MG TABLET PO PRN (10:08)
[2019-07-18] MEDS: ACETAMINOPHEN 325 MG TABLET (FP) PO PRN (12:17)
--- NOTE | 2019-07-18 12:39 | PN ---
BHS COWS - Scale Resting Pulse: 0= [place] 80 or Below Sweatin= Chills/Flushing Restless Observation: 3= Extraneous Movement Pupil Size: 0= Normal to Room Light Bone or Joint Aches: 0= None Runny Nose/ Eye Tearin= None GI Upset > 30mins: 1= Stomach Cramp Tremor Observation of Outstretched Hands: 0= None Yawning Observation: 0= None Anxiety or Irritability: 1=Feels Anxious/Irritable Goose Flesh Skin: 0=Smooth Skin COWS Score: 6 BHS Progress Note (SOAP) Subjective: Interrupted sleep Objective: 07/18/19 12:36 Last Vital Signs Temp Pulse Resp BP Pulse Ox 96.5 F L 68 18 101/56 L 07/18/19 09:11 07/18/19 09:11 07/18/19 09:11 07/18/19 09:11 Laboratory Tests 07/14/19 07/14/19 07/14/19 12:45 12:45 12:45 WBC 8.9 RBC 5.06 Hgb 15.4 Hct 45.1 MCV 89.1 MCH 30.4 MCHC 34.1 RDW 13.8 Plt Count 214 MPV 10.1 Sodium 137 Potassium 3.5 Chloride 100 Carbon Dioxide 31 Anion Gap 6 L BUN 11.8 Creatinine 1.1 Est GFR (CKD-EPI)AfAm 99.57 Est GFR (CKD-EPI)NonAf 85.91 Random Glucose 107 H Calcium 9.3 Total Bilirubin 0.4 AST 14 L ALT 20 Alkaline Phosphatase 110 Total Protein 7.9 Albumin 4.3 RPR Titer Nonreactive Labs reviewed Assessment: 07/18/19 12:37 Withdrawal sxs Plan: Continue detox Encouraged PO water intake Scheduled for discharge tomorrow
[2019-07-18 13:14] VITALS: BP 107/80; PULSE 82; TEMP 98.1
--- NOTE | 2019-07-18 13:27 | DS ---
[facility] Detox Discharge Summary Admission Date: 07/14/19 Discharge Date: 07/18/19 - History Present History: Opioid Dependence Additional Comments: Patient requested to be discharged today instead of tomorrow and denies any withdrawal sxs. Patient is stable for discharge. Patient discharged in stable condition. Instructed to follow up with PCP within 1-2 weeks. Pertinent Past History: Denies pmhx - Physical Exam Results Vital Signs: Vital Signs Temperature 98.1 F 07/18/19 12:33 Pulse Rate 82 07/18/19 12:33 Respiratory Rate 18 07/18/19 12:33 Blood Pressure 107/80 07/18/19 12:33 O2 Sat by Pulse Oximetry (%) Pertinent Admission Physical Exam Findings: Withdrawal sxs Laboratory Tests 07/14/19 07/14/19 07/14/19 12:45 12:45 12:45 WBC 8.9 RBC 5.06 Hgb 15.4 Hct 45.1 MCV 89.1 MCH 30.4 MCHC 34.1 RDW 13.8 Plt Count 214 MPV 10.1 Sodium 137 Potassium 3.5 Chloride 100 Carbon Dioxide 31 Anion Gap 6 L BUN 11.8 Creatinine 1.1 Est GFR (CKD-EPI)AfAm 99.57 Est GFR (CKD-EPI)NonAf 85.91 Random Glucose 107 H Calcium 9.3 Total Bilirubin 0.4 AST 14 L ALT 20 Alkaline Phosphatase 110 Total Protein 7.9 Albumin 4.3 RPR Titer Nonreactive Labs reviewed - Treatment Hospital Course: Detox Protocol Followed, Detoxed Safely, Responded well, Discharged Condition Good - Medication Discharge Medications: Ambulatory Orders Alprazolam [Xanax] 2 mg PO BID 03/29/19 Escitalopram Oxalate [Lexapro -] 20 mg PO DAILY 03/29/19 Quetiapine Fumarate [Seroquel -] 300 mg PO HS 06/21/19 Zolpidem Tartrate [Ambien] 10 mg PO HS 07/14/19 - Diagnosis (1) Opioid dependence with withdrawal Current Visit: Yes Status: Acute - AMA Did Patient Leave Against Medical Advice: No (Instructed to follow up with PCP within 1-2 weeks)
[2019-07-19] MEDS ORDERED: METHADONE HCL 5 MG TABLET (FOR DETOX USE ONLY) PO ONE (06:00)
== END 2019-07-18 13:35 | disposition home or self-care (01) | DRG 773 ==
LOC: YASAS 09:59 → Y6N 12:45
PROVIDERS: ADMIT Allergy & Immunology; ATTEND Allergy & Immunology
PROC: HZ2ZZZZ Detoxification Services for Substance Abuse Treatment (ICD-10-PCS; principal; 2019-07-14)
DX: F11.23 Opioid dependence with withdrawal (principal); F19.282 Other psychoactive substance dependence with psychoactive substance-induced sleep disorder; F19.24 Other psychoactive substance dependence with psychoactive substance-induced mood disorder; F33.9 Major depressive disorder, recurrent, unspecified; F41.9 Anxiety disorder, unspecified; I48.91 Unspecified atrial fibrillation
CPT/HCPCS: 36415; 80053; 85027; 86593; 93005; 93010; J0735

== ENCOUNTER 2019-08-14 11:26 | Inpatient (IN) | payer OTHER ==
--- NOTE | 2019-08-14 12:06 | BHS.RME ---
Substance Use & Tx History - Substance Use History heroin Substance amount: 8 bags Frequency of use: Daily Substance route: Inhalation (ex: sniffing or snorting) - Last Treatment Date of last treatment: 07/14/19 Where was last treatment: Detox (at [facility] - completed) Physical/Psych/Mental Status - Behavior General Behavior: Increased activity (restlessness, agitation) Eye Contact: Normal - Cooperativeness Cooperativeness: Cooperative - Thinking Thought Processes: Logical Thought content: Future oriented - Physical Health Problems Is patient presently having any pain?: No Does patient presently have any injuries (include location): No Does patient currently have a fever: No Is patient : No COWS - Scale Resting Pulse: 1= [place] 81-100 Sweatin= Chills/Flushing Restless Observation: 1= Difficult to Sit Still Pupil Size: 1= Pupils >than Normal Bone or Joint Aches: 2= Severe Diffuse Aches Runny Nose/ Eye Tearin= Runny Nose/Eyes GI Upset > 30mins: 2= Nausea/Diarrhea Tremor Observation: 2= Slight Tremor Visible Yawning Observation: 2= >3x During Session Anxiety or Irritability: 2=Irritable/Anxious Goose Flesh Skin: 3=Piloerection COWS Score: 19
--- NOTE | 2019-08-14 12:06 | HP ---
COWS - Scale Resting Pulse: 1= [place] 81-100 Sweatin= Chills/Flushing Restless Observation: 1= Difficult to Sit Still Pupil Size: 1= Pupils >than Normal Bone or Joint Aches: 2= Severe Diffuse Aches Runny Nose/ Eye Tearin= Runny Nose/Eyes GI Upset > 30mins: 2= Nausea/Diarrhea Tremor Observation: 2= Slight Tremor Visible Yawning Observation: 2= >3x During Session Anxiety or Irritability: 2=Irritable/Anxious Goose Flesh Skin: 3=Piloerection COWS Score: 19 CIWA Score - Admission Criteria [facility]ASAS Guidelines: Admission for Medically Managed Detox: Requires at least one of the followin. CIWA greater than 12 2. Seizures within the past 24 hours 3. Delirium tremens within the past 24 hours 4. Hallucinations within the past 24 hours 5. Acute intervention needed for co occurring medical disorder 6. Acute intervention needed for co occurring psychiatric disorder 7. Severe withdrawal that cannot be handled at a lower level of care (continued vomiting, continued diarrhea, abnormal vital signs) requiring intravenous medication and/or fluids 8. Admitting History and Physical - Admission History Source: Patient, Medical Record Limitations to Obtaining History: No Limitations - Past Medical History Cardiovascular: Yes: AFIB Psych: Yes: Anxiety, Depression - Past Surgical History Past Surgical History: Yes: None - Smoking History Smoking history: Never smoked Have you smoked in the past 12 months: No Aproximately how many cigarettes per day: 1 - Alcohol/Substance Use Hx Alcohol Use: No - Social History ADL: Independent Occupation: unemployed History of Recent Travel: No Admission ROS [facility] - HPI Chief Complaint: I'm tired, I'm sick, I want to get better Allergies/Adverse Reactions: Allergies Allergy/AdvReac Type Severity Reaction Status Date / Time risperidone Allergy Severe Verified 08/14/19 12:37 History of Present Illness: 34 yo gentleman here for detox from opiates. This is one of multiple admissions for treatment. Patient not drinking alcohol, denies black outs. Unclear if overdose - on 08/27/18 patient was in [facility] [place] rehab and found unresponsive - given narcan - but also found to have afib so unclear etiology. Patient has not had any further episodes but did not f/u with cardiology nor take any of the medication recommended by the generator repairer. Patient was on suboxone (see below) but states he still relapsed and prefers being on a methadone program. Patient is homeless - lives on street or stays on 'someone's couch' - not on disability, [place]: Patient Name: Rossy Severino Date: 1985 Address: [address] [place] [id number] Sex: Male Rx Written Rx Dispensed Drug Quantity Days Supply Prescriber Name Payment Method Dispenser buprenorphine-naloxone 8-2 mg sl film 14 7 Alex Gil [facility] alprazolam 2 mg tablet 60 30 BenavidesFuentes MD [facility] zolpidem tartrate 10 mg tablet 30 30 BenavidesFuentes MD [facility] zolpidem tartrate 10 mg tablet 30 30 Benavides, Fuentes Langley MD [facility] alprazolam 2 mg tablet 60 30 BenavidesFuentes MD [facility] Patient Name: Anitha Severino Date: 1985 Address: [address] [place] [id number] Sex: Male Rx Written Rx Dispensed Drug Quantity Days Supply Prescriber Name Payment Method Dispenser alprazolam 2 mg tablet 60 30 BenavidesFuentes MD [facility] alprazolam 2 mg tablet 60 30 BenavidesFuentes MD [facility] zolpidem tartrate 10 mg tablet 30 30 BenavidesFuentes MD [facility] buprenorphine-naloxone 8-2 mg sl film 60 30 Kalpesh Alanis [facility] alprazolam 2 mg tablet 60 30 BenavidesFuentes MD [facility] zolpidem tartrate 10 mg tablet 30 30 BenavidesFuentes MD [facility] buprenorphine-naloxone 8-2 mg sl film 60 30 Kalpesh Alanis [facility] alprazolam 2 mg tablet 60 30 Benavides, Fuentes Langley MD [facility] zolpidem tartrate 10 mg tablet 30 30 Benavides, Fuentes Langley MD [facility] buprenorphine-naloxone 8-2 mg sl film 60 30 [facility] alprazolam 2 mg tablet 60 30 Benavides, Fuentes Langley MD [facility] suboxone 8 mg-2 mg sl film 60 30 [facility] alprazolam 2 mg tablet 60 30 Benavides, Fuentes Langley MD [facility] buprenorphine-naloxone 8-2 mg sl film 60 30 aJcinto Naidu MD [facility] alprazolam 2 mg tablet 60 30 Benavides, Fuentes Langley MD [facility] zolpidem tartrate 10 mg tablet 30 30 Benavides, Fuentes Langley MD [facility] suboxone 8 mg-2 mg sl film 7 7 Francoise Smith NP [facility] alprazolam 2 mg tablet 60 30 Benavides, Fuentes Langley MD [facility] alprazolam 2 mg tablet 60 30 Benavides, Fuentes Langley MD [facility] alprazolam 2 mg tablet 60 30 Benavides, Fuentes Langley MD [facility] * - Drugs marked with an asterisk are compound drugs. If the compound drug is made up of more than one controlled substance, then each controlled substance will be a separate row in the table. Exam Limitations: No Limitations - Ebola screening Have you traveled outside of the country in the last 21 days: No Have you been sick,other than usual withdrawal symptoms: No Do you have a fever: No - Review of Systems Constitutional: Chills, Loss of Appetite, Malaise, Night Sweats, Changes in sleep, Weakness, Unintentional Wgt. Loss EENT: reports: Blurred Vision, Nose Congestion Respiratory: reports: No Symptoms reported Cardiac: reports: No Symptoms Reported GI: reports: Nausea, Poor Appetite : reports: Dysuria Musculoskeletal: reports: Back Pain, Muscle Pain Integumentary: reports: No Symptoms Reported Neuro: reports: Headache, Tremors, Weakness Endocrine: reports: No Symptoms Reported Hematology: reports: No Symptoms Reported Psychiatric: reports: Judgement Intact, Mood/Affect Appropiate, Orientated x3, Anxious Other Systems: Reviewed and Negative Patient History - Patient Medical History Hx Anemia: No Hx Asthma: No Hx Chronic Obstructive Pulmonary Disease (COPD): No Hx Cancer: No Hx Cardiac Disorders: Yes (? afib 08/27/2018 admission) Hx Congestive Heart Failure: No Hx Hypertension: No Hx Hypercholesterolemia: No Hx Pacemaker: No HX Cerebrovascular Accident: No Hx Seizures: No Hx Dementia: No Hx Diabetes: No Hx Gastrointestinal Disorders: No Hx Liver Disease: No Hx Genitourinary Disorders: No Hx Sexually Transmitted Disorders: No Hx Renal Disease (ESRD): No Hx Thyroid Disease: No Hx Human Immunodeficiency Virus (HIV): No (last 08/25/18 negative) Hx Hepatitis C: No Hx Depression: Yes (with anxiety - sees psych,on meds - hospitalized about 2 months [place] [facility]) Hx Suicide Attempt: Yes (long time ago - hospitalized - tried to overdose) Hx Bipolar Disorder: No Hx Schizophrenia: No - Patient Surgical History Past Surgical History: No Hx Neurologic Surgery: No Hx Cataract Extraction: No Hx Cardiac Surgery: No Hx Lung Surgery: No Hx Breast Surgery: No Hx Breast Biopsy: No Hx Abdominal Surgery: No Hx Appendectomy: No Hx Cholecystectomy: No Hx Genitourinary Surgery: No Hx Section: No Hx Orthopedic Surgery: No Anesthesia Reaction: No - PPD History Previous Implant?: Yes Documented Results: Negative w/proof Implanted On Prior R Admission?: Yes Date: 10/09/18 Results: 0 mm PPD to be Administered?: No - Reproductive History Patient is a Female of Child Bearing Age (11 -55 yrs old): No (male) - Smoking Cessation Smoking history: Current some day smoker Have you smoked in the past 12 months: No Aproximately how many cigarettes per day: 1 Hx Chewing Tobacco Use: No Initiated information on smoking cessation: Yes 'Breaking Loose' booklet given: 08/14/19 (give on floor) - Substance & Tx. History Hx Alcohol Use: No Hx Substance Use: Yes Substance Use Type: Opiates Hx Substance Use Treatment: Yes (detox, rehab, [facility], suboxone) - Substances abused Heroin Substance route: Inhalation Frequency: Daily Amount used: 8 bags Age of first use: 24 Date of last use: 08/13/19 Admission Physical Exam [facility] - Vital Signs Vital Signs: Initial Vital Signs Temp Pulse Resp BP 97.8 F 88 17 122/81 08/14/19 12:05 08/14/19 12:05 08/14/19 12:05 08/14/19 12:05 - Physical General Appearance: Yes: Nourished, Appropriately Dressed, Moderate Distress, Obese, Tremorous, Irritable, Anxious HEENTM: Yes: EOMI, Hearing grossly Normal, Normocephalic, Normal Voice, Pharynx Normal, Other (small cold sore right corner of lip) Respiratory: Yes: Normal Breath Sounds, No Respiratory Distress Neck: Yes: No masses,lesions,Nodules, Supple Breast: Yes: Breast Exam Deferred Cardiology: Yes: Regular Rhythm, Regular Rate Abdominal: Yes: Soft Genitourinary: Yes: Frequency Back: Yes: Normal Inspection Musculoskeletal: Yes: full range of Motion, Gait Steady Extremities: Yes: Normal Inspection Neurological: Yes: Fully Oriented, Alert, Normal Mood/Affect, Normal Response Integumentary: Yes: Normal Color, Warm Lymphatic: Yes: Within Normal Limits - Diagnostic (1) Opioid dependence with withdrawal Current Visit: Yes Status: Acute (2) History of atrial fibrillation Current Visit: Yes Status: Resolved (3) 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 Comment: denies abuse, is prescribed by psych - verified by [facility] Cleared for Admission [facility] - Detox or Rehab [facility] Level of Care: Medically Managed Detox Regimen/Protocol: Methadone Breathalyzer - Breathalyzer Breathalyzer: 0 Urine Drug Screen - Test Device Lot number: [id number] Expiration date: 05/08/21 - Control Is test valid?: Yes - Results Drug screen NEGATIVE: No Urine drug screen results: FEN-Fentanyl, MOP-Opiates, BZO-Benzodiazepines Inpatient Rehab Admission - Rehab Decision to Admit Inpatient rehab admission?: No
[2019-08-14] MEDS ORDERED: MAG HYDROX/AL HYDROX/SIMETH 30 ML UNIT-DOSE CUP PO PRN (12:24)
[2019-08-14] MEDS ORDERED: IBUPROFEN 400 MG TABLET (FP) PO PRN (12:24)
[2019-08-14] MEDS ORDERED: BISMUTH SUBSALICYLATE 524 MG/30 ML UD PO PRN (12:24)
[2019-08-14] MEDS ORDERED: MAGNESIUM CITRATE 300 ML BOTTLE PO PRN (12:24)
[2019-08-14] MEDS ORDERED: cloNIDine HCL 0.1 MG TABLET PO PRN (12:24)
[2019-08-14] MEDS ORDERED: MAGNESIUM HYDROX 2400MG/30ML ORAL SUSPENSION 30 ML CUP PO PRN (12:24)
[2019-08-14] MEDS ORDERED: METHADONE HCL 10 MG TABLET (FOR DETOX USE ONLY) PO ONE (12:24)
[2019-08-14] MEDS ORDERED: NICOTINE POLACRILEX 2 MG GUM BUC PRN (12:24)
[2019-08-14] MEDS ORDERED: MENTHOL/PHENOL 1 EACH UD MM PRN (12:24)
[2019-08-14] MEDS ORDERED: ACETAMINOPHEN 325 MG TABLET (FP) PO PRN (12:24)
[2019-08-14] MEDS ORDERED: METHOCARBAMOL 500 MG TABLET PO PRN (12:24)
[2019-08-14 12:50] VITALS: BMI 25.7
[2019-08-14] MEDS ORDERED: ESCITALOPRAM OXALATE 20 MG TABLET PO ONE (13:00)
[2019-08-14] MEDS ORDERED: ONDANSETRON *ODT* 4 MG TABLET SL ONE ×2 (13:00→20:12)
[2019-08-14] MEDS: PRENATAL VITAMINS W/ FOLIC ACID TABLET (FP) PO SCH (14:45)
[2019-08-14] MEDS: diazePAM 5 MG TABLET PO SCH ×3 (14:46→22:51)
[2019-08-14] MEDS ORDERED: PROMETHAZINE HCL 25 MG TABLET PO PRN (20:12)
[2019-08-14] MEDS ORDERED: QUEtiapine FUMARATE 300 MG TABLET PO ONE (22:00)
[2019-08-14] MEDS: THIAMINE HCL 100 MG TABLET (FP) PO SCH (22:51)
[2019-08-14] MEDS: MELATONIN 5 MG TABLETS PO SCH (22:51)
[2019-08-15] MEDS: diazePAM 5 MG TABLET PO SCH ×6 (03:16→22:26)
[2019-08-15] MEDS ORDERED: METHADONE HCL 10 MG TABLET (FOR DETOX USE ONLY) ONE (08:55)
[2019-08-15] MEDS ORDERED: METHADONE HCL 5 MG TABLET (FOR DETOX USE ONLY) ONE (08:55)
--- NOTE | 2019-08-15 09:36 | CONSULT ---
[facility] Psychiatric Consult - Data Date of interview: 08/15/19 Admission source: Self-referred Identifying data: Mr Severino is a 34 years old single male, father of 13 years old daughter, employed at [employer], domiciled seeking detox treatment for opioid Substance Abuse History: Reports history of heroin use. Refer to addiction counselor's summary for further information Medical History: Significant for history of atrial fibrillation. Psychiatric History: Patient is known to this facility from previous admissions. Historical narrative remains consistent. He reports that his first psychiatric contact occured in January 2017 when he attempted to commit suicide at the news of his brother from a drug overdose. Reports that he was admitted to [facility] for one month, diagnosed with MDD and started on Lexapro 20 mg/day and Trazadone 100 mg/hs. On discharge, he was referred to [facility] for aftercare. Reports that he is still receiving outpatient psychiatric treatment at [facility] and he is currently prescribed Lexapro 20 mg/day, Seroquel 300 mg/hs, Ambien 10 mg/hs, Xanax 2 mg/bid. During his most recent admission to this facility, he saw automobile and property underwriter on 07/15/19, his medications were confirmed by contacting [place] [phone] [place] [address] where scripts for these medications were last filled on 07/06/19. Patient were continued on Lexapro 20 mg/day and Seroquel 300 mg/hs along with Belsomra 10 mg/hs prn for insomnia. Reports that he has been taking medication since discharge from this facility on 07/18/19. Denies previous suicide attempts prior to 2016. At present, denies experiencing depressive symptoms, S/H ideations. However, reports feeling anxious and sleeping poorly. Patient expresses willingness to continue medications Physical/Sexual Abuse/Trauma History: Heavy stressors : separation from 13 y/o daughter, lack of vocational skills, addictions and absence of a support Mental Status Exam - Mental Status Exam Alert and Oriented to: Time, Place, Person Cognitive Function: Fair Patient Appearance: Well Groomed, Disheveled Mood: Anxious Affect: Appropriate Patient Behavior: Cooperative Speech Pattern: Clear Voice Loudness: Normal Thought Process: Intact, Goal Oriented Thought Disorder: Not Present Hallucinations: Denies Suicidal Ideation: Denies Homicidal Ideation: Denies Insight/Judgement: Poor Sleep: Poorly Appetite: Poor Muscle strength/Tone: Normal Gait/Station: Normal Psychiatric Findings - Problem List ([place] 1, 2,3) (1) MDD (major depressive disorder) Current Visit: No Status: Chronic (2) Substance-induced anxiety disorder Current Visit: No Status: Acute (3) Substance-induced sleep disorder Current Visit: No Status: Acute (4) Opioid dependence with withdrawal Current Visit: Yes Status: Acute (5) Afib Current Visit: Yes Status: Chronic Qualifiers: Atrial fibrillation type: unspecified Qualified Code(s): I48.91 - Unspecified atrial fibrillation - Initial Treatment Plan Initial Treatment Plan: 1) Continue Lexapro 20 mg po daily and Seroquel 300 mg po HS. 2) Continue inpatient detoxification
--- NOTE | 2019-08-15 09:54 | EKG ---
Test Reason : Blood Pressure : / mmHG Vent. Rate : 075 BPM Atrial Rate : 075 BPM P-R Int : 144 ms QRS Dur : 086 ms QT Int : 402 ms P-R-T Axes : 043 038 016 degrees QTc Int : 448 ms NORMAL SINUS RHYTHM NORMAL ECG WHEN COMPARED WITH ECG OF 16-JUL-2019 14:43, NO SIGNIFICANT CHANGE WAS FOUND Confirmed by Asaf Guzman MD ([id number]) on 08/15/2019 9:53:37 AM Referred By: Confirmed By:Asaf Guzman MD
[2019-08-15] MEDS ORDERED: METHADONE (DETOX) 20 MG, METHADONE (DETOX) 5 MG PO ONE (10:00)
[2019-08-15] MEDS: PRENATAL VITAMINS W/ FOLIC ACID TABLET (FP) PO SCH (10:08)
[2019-08-15] MEDS ORDERED: ONDANSETRON *ODT* 4 MG TABLET SL ONE (10:12)
--- NOTE | 2019-08-15 10:18 | PN ---
S CIWA - CIWA Score Nausea/Vomitin Muscle Tremors: 3 Anxiety: 4-Mod. Anxious/Guarded Agitation: 2 Paroxysmal Sweats: 2 Orientation: 0-Oriented Tacttile Disturbances: 0-None Auditory Disturbances: 0-None Visual Disturbances: 2-Mild Sensitivity Headache: 0-None Present CIWA-Ar Total Score: 15 BHS Progress Note (SOAP) Subjective: 34 years old male admitted on 08/14/19 for opiate withdrawal sx management treating with methadone detox regiment loose stool x 1 imodium 4 mg po x 1 bentyl 20 mg po x 1 hold mobrin 24 hours nausea zofran 8 mg po x 1 Objective: 08/15/19 10:18 Vital Signs Temperature 97.9 F 08/15/19 09:08 Pulse Rate 85 08/15/19 09:08 Respiratory Rate 18 08/15/19 09:08 Blood Pressure 120/77 08/15/19 09:08 O2 Sat by Pulse Oximetry (%) 08/15/19 10:19 lab pending Assessment: 08/15/19 10:19 opiate withdrawal Plan: methadone regiment
[2019-08-15] MEDS ORDERED: LOPERAMIDE HCL 2 MG CAPSULE PO ONE (10:30)
[2019-08-15] MEDS ORDERED: DICYCLOMINE HCL 10 MG CAPSULE PO ONE (10:30)
--- NOTE | 2019-08-15 10:58 | PN ---
BHS Progress Note Note: patient is lactos intolerance addition lactose to allergy/reaction
[2019-08-15 11:37] LABS: HEMATOCRIT 40.5 % (35.4-49); MCH 30.1 pg (25.7-33.7); MCHC 34.5 g/dl (32.0-35.9); MEAN CELL VOLUME 87.1 fl (80-96); MEAN PLT VOLUME 9.3 fl (7.5-11.1); PLATELET COUNT 211 K/MM3 (134-434); RBC 4.65 M/mm3 (4.00-5.60); WHITE BLOOD COUNT 6.3 K/mm3 (4.0-10.0)
[2019-08-15 11:53] LABS: ALBUMIN 3.3 g/dl (3.4-5.0); BILIRUBIN,TOTAL 0.5 mg/dL (0.2-1); BLOOD UREA NITROGEN 10.6 mg/dL (7-18); CALCIUM 8.6 mg/dL (8.5-10.1); POTASSIUM 4.1 mmol/L (3.5-5.1); TOT PROT 6.6 g/dl (6.4-8.2)
[2019-08-15] MEDS: ESCITALOPRAM OXALATE 20 MG TABLET PO SCH (15:01)
[2019-08-15] MEDS: ACETAMINOPHEN 325 MG TABLET (FP) PO PRN (15:03)
[2019-08-15] MEDS ORDERED: QUEtiapine FUMARATE 100 MG TABLET (FP) ONE (21:34)
[2019-08-15] MEDS: THIAMINE HCL 100 MG TABLET (FP) PO SCH (22:26)
[2019-08-15] MEDS: QUEtiapine FUMARATE 300 MG TABLET PO SCH (22:26)
[2019-08-15] MEDS: MELATONIN 5 MG TABLETS PO SCH (22:26)
[2019-08-15] MEDS: SUVOREXANT 10 MG TABLET PO PRN (22:27)
[2019-08-16] MEDS: diazePAM 5 MG TABLET PO SCH ×6 (06:16→22:21)
[2019-08-16] MEDS ORDERED: ESCITALOPRAM OXALATE 10 MG TABLET ONE (09:23)
[2019-08-16] MEDS ORDERED: METHADONE HCL 10 MG TABLET (FOR DETOX USE ONLY) PO ONE (10:00)
[2019-08-16] MEDS: PRENATAL VITAMINS W/ FOLIC ACID TABLET (FP) PO SCH (10:16)
[2019-08-16] MEDS: ESCITALOPRAM OXALATE 20 MG TABLET PO SCH (13:21)
--- NOTE | 2019-08-16 15:02 | PN ---
BHS COWS - Scale Resting Pulse: 1= [place] 81-100 Sweatin= Chills/Flushing Restless Observation: 0= Sits Still Pupil Size: 1= Pupils >than Normal Bone or Joint Aches: 1= Mild Discomfort Runny Nose/ Eye Tearin= Nasal Congestion GI Upset > 30mins: 1= Stomach Cramp Tremor Observation of Outstretched Hands: 2= Slight Tremor Visible Yawning Observation: 0= None Anxiety or Irritability: 4=Extreme Anxiety Goose Flesh Skin: 0=Smooth Skin COWS Score: 12 BHS Progress Note (SOAP) Subjective: 34 years old male admitted on 08/14/19 for opiate withdrawal sx management treating with methadone detox regiment report abdominal cramping bentyl 20 mg po x 1 patient is taking zanax 2 mg po bid last monthly filled on 08/06/19 Objective: 08/16/19 15:05 Vital Signs Temperature 97.9 F 08/16/19 08:57 Pulse Rate 90 08/16/19 08:57 Respiratory Rate 20 08/16/19 08:57 Blood Pressure 112/75 08/16/19 08:57 O2 Sat by Pulse Oximetry (%) Laboratory Last Values WBC 6.3 K/mm3 (4.0-10.0) 08/15/19 07:50 RBC 4.65 M/mm3 (4.00-5.60) 08/15/19 07:50 Hgb 14.0 GM/dL (11.7-16.9) 08/15/19 07:50 Hct 40.5 % (35.4-49) 08/15/19 07:50 MCV 87.1 fl (80-96) 08/15/19 07:50 MCH 30.1 pg (25.7-33.7) 08/15/19 07:50 MCHC 34.5 g/dl (32.0-35.9) 08/15/19 07:50 RDW 13.0 % (11.9-15.9) 08/15/19 07:50 Plt Count 211 K/MM3 (134-434) 08/15/19 07:50 MPV 9.3 fl (7.5-11.1) 08/15/19 07:50 Sodium 140 mmol/L (136-145) 08/15/19 07:50 Potassium 4.1 mmol/L (3.5-5.1) 08/15/19 07:50 Chloride 105 mmol/L (98-107) 08/15/19 07:50 Carbon Dioxide 28 mmol/L (21-32) 08/15/19 07:50 Anion Gap 8 MMOL/L (8-16) 08/15/19 07:50 BUN 10.6 mg/dL (7-18) 08/15/19 07:50 Creatinine 1.0 mg/dL (0.55-1.3) 08/15/19 07:50 Est GFR (CKD-EPI)AfAm 111.73 08/15/19 07:50 Est GFR (CKD-EPI)NonAf 96.40 08/15/19 07:50 Random Glucose 112 mg/dL (74-106) H 08/15/19 07:50 Calcium 8.6 mg/dL (8.5-10.1) 08/15/19 07:50 Total Bilirubin 0.5 mg/dL (0.2-1) 08/15/19 07:50 AST 16 U/L (15-37) 08/15/19 07:50 ALT 24 U/L (13-61) 08/15/19 07:50 Alkaline Phosphatase 95 U/L (45-117) 08/15/19 07:50 Total Protein 6.6 g/dl (6.4-8.2) 08/15/19 07:50 Albumin 3.3 g/dl (3.4-5.0) L 08/15/19 07:50 RPR Titer Nonreactive (NONREACTIVE) 08/15/19 07:50 lab noted Assessment: 08/16/19 15:05 opiate withdrawal Plan: methadone regiment
[2019-08-16] MEDS ORDERED: DICYCLOMINE HCL 10 MG CAPSULE PO PRN (18:41)
[2019-08-16] MEDS: MELATONIN 5 MG TABLETS PO SCH (22:21)
[2019-08-16] MEDS: QUEtiapine FUMARATE 300 MG TABLET PO SCH (22:21)
[2019-08-16] MEDS: THIAMINE HCL 100 MG TABLET (FP) PO SCH (22:21)
[2019-08-16] MEDS: SUVOREXANT 10 MG TABLET PO PRN (22:22)
[2019-08-17] MEDS: diazePAM 5 MG TABLET PO SCH ×3 (06:44→22:49)
[2019-08-17] MEDS ORDERED: METHADONE HCL 5 MG TABLET (FOR DETOX USE ONLY) ONE (09:16)
[2019-08-17] MEDS ORDERED: ESCITALOPRAM OXALATE 10 MG TABLET ONE (09:16)
[2019-08-17] MEDS ORDERED: METHADONE HCL 10 MG TABLET (FOR DETOX USE ONLY) ONE (09:16)
[2019-08-17] MEDS ORDERED: METHADONE (DETOX) 10 MG, METHADONE (DETOX) 5 MG PO ONE (10:00)
[2019-08-17] MEDS: PRENATAL VITAMINS W/ FOLIC ACID TABLET (FP) PO SCH (10:21)
[2019-08-17] MEDS: ESCITALOPRAM OXALATE 20 MG TABLET PO SCH (10:22)
[2019-08-17] MEDS: ACETAMINOPHEN 325 MG TABLET (FP) PO PRN (11:04)
--- NOTE | 2019-08-17 12:54 | PN ---
BHS COWS - Scale Resting Pulse: 1= [place] 81-100 Sweatin= Chills/Flushing Restless Observation: 0= Sits Still Pupil Size: 1= Pupils >than Normal Bone or Joint Aches: 1= Mild Discomfort Runny Nose/ Eye Tearin= Nasal Congestion GI Upset > 30mins: 1= Stomach Cramp Tremor Observation of Outstretched Hands: 1= Tremor [place], Not Seen Yawning Observation: 1= 1-2x During Session Anxiety or Irritability: 1=Feels Anxious/Irritable Goose Flesh Skin: 0=Smooth Skin COWS Score: 9 BHS Progress Note (SOAP) Subjective: 34 years old male admitted on 08/14/19 for opiate withdrawal sx management treating with methadone detox regimen taking suboxone 8-2mg po bid received 7 days suboxone on 08/06/19 negative suboxone UTox upon admission positive UTox on Fen Mop and Bzo Mr is doing well with the methadone discuss methadone maintenance program Objective: 08/17/19 13:01 Vital Signs Temperature 98.8 F 08/17/19 09:06 Pulse Rate 99 H 08/17/19 09:06 Respiratory Rate 18 08/17/19 09:06 Blood Pressure 116/77 08/17/19 09:06 O2 Sat by Pulse Oximetry (%) Laboratory Last Values WBC 6.3 K/mm3 (4.0-10.0) 08/15/19 07:50 RBC 4.65 M/mm3 (4.00-5.60) 08/15/19 07:50 Hgb 14.0 GM/dL (11.7-16.9) 08/15/19 07:50 Hct 40.5 % (35.4-49) 08/15/19 07:50 MCV 87.1 fl (80-96) 08/15/19 07:50 MCH 30.1 pg (25.7-33.7) 08/15/19 07:50 MCHC 34.5 g/dl (32.0-35.9) 08/15/19 07:50 RDW 13.0 % (11.9-15.9) 08/15/19 07:50 Plt Count 211 K/MM3 (134-434) 08/15/19 07:50 MPV 9.3 fl (7.5-11.1) 08/15/19 07:50 Sodium 140 mmol/L (136-145) 08/15/19 07:50 Potassium 4.1 mmol/L (3.5-5.1) 08/15/19 07:50 Chloride 105 mmol/L (98-107) 08/15/19 07:50 Carbon Dioxide 28 mmol/L (21-32) 08/15/19 07:50 Anion Gap 8 MMOL/L (8-16) 08/15/19 07:50 BUN 10.6 mg/dL (7-18) 08/15/19 07:50 Creatinine 1.0 mg/dL (0.55-1.3) 08/15/19 07:50 Est GFR (CKD-EPI)AfAm 111.73 08/15/19 07:50 Est GFR (CKD-EPI)NonAf 96.40 08/15/19 07:50 Random Glucose 112 mg/dL (74-106) H 08/15/19 07:50 Calcium 8.6 mg/dL (8.5-10.1) 08/15/19 07:50 Total Bilirubin 0.5 mg/dL (0.2-1) 08/15/19 07:50 AST 16 U/L (15-37) 08/15/19 07:50 ALT 24 U/L (13-61) 08/15/19 07:50 Alkaline Phosphatase 95 U/L (45-117) 08/15/19 07:50 Total Protein 6.6 g/dl (6.4-8.2) 08/15/19 07:50 Albumin 3.3 g/dl (3.4-5.0) L 08/15/19 07:50 RPR Titer Nonreactive (NONREACTIVE) 08/15/19 07:50 lab noted Assessment: 08/17/19 13:01 opiate withdrawal Plan: methadone regiment
[2019-08-17] MEDS ORDERED: QUEtiapine FUMARATE 100 MG TABLET (FP) ONE (21:15)
[2019-08-17] MEDS: SUVOREXANT 10 MG TABLET PO PRN (22:48)
[2019-08-17] MEDS: QUEtiapine FUMARATE 300 MG TABLET PO SCH (22:49)
[2019-08-17] MEDS: THIAMINE HCL 100 MG TABLET (FP) PO SCH (22:49)
[2019-08-17] MEDS: MELATONIN 5 MG TABLETS PO SCH (22:51)
[2019-08-18 09:06] VITALS: BP 119/77; PULSE 84; TEMP 98.1
--- NOTE | 2019-08-18 09:22 | PN ---
BHS COWS - Scale Resting Pulse: 1= [place] 81-100 Sweatin= No chills or Flushing Restless Observation: 0= Sits Still Pupil Size: 0= Normal to Room Light Bone or Joint Aches: 1= Mild Discomfort Runny Nose/ Eye Tearin= None GI Upset > 30mins: 1= Stomach Cramp Tremor Observation of Outstretched Hands: 1= Tremor [place], Not Seen Yawning Observation: 0= None Anxiety or Irritability: 1=Feels Anxious/Irritable Goose Flesh Skin: 0=Smooth Skin COWS Score: 5 BHS Progress Note (SOAP) Subjective: 34 years old male admitted on 08/14/19 for opiate withdrawal sx management treating with methadone detox regiment patient is taking xanax daily prescribed monthly by primary care provider "Why you take valium away from me?" discussed the risks of xanax mixed with valium patient will be discharged tomorrow 08/19/19 and can resume xanax as per patient preference Objective: 08/18/19 09:20 Vital Signs Temperature 98.1 F 08/18/19 08:30 Pulse Rate 84 08/18/19 08:30 Respiratory Rate 18 08/18/19 08:30 Blood Pressure 119/77 08/18/19 08:30 O2 Sat by Pulse Oximetry (%) Laboratory Last Values WBC 6.3 K/mm3 (4.0-10.0) 08/15/19 07:50 RBC 4.65 M/mm3 (4.00-5.60) 08/15/19 07:50 Hgb 14.0 GM/dL (11.7-16.9) 08/15/19 07:50 Hct 40.5 % (35.4-49) 08/15/19 07:50 MCV 87.1 fl (80-96) 08/15/19 07:50 MCH 30.1 pg (25.7-33.7) 08/15/19 07:50 MCHC 34.5 g/dl (32.0-35.9) 08/15/19 07:50 RDW 13.0 % (11.9-15.9) 08/15/19 07:50 Plt Count 211 K/MM3 (134-434) 08/15/19 07:50 MPV 9.3 fl (7.5-11.1) 08/15/19 07:50 Sodium 140 mmol/L (136-145) 08/15/19 07:50 Potassium 4.1 mmol/L (3.5-5.1) 08/15/19 07:50 Chloride 105 mmol/L (98-107) 08/15/19 07:50 Carbon Dioxide 28 mmol/L (21-32) 08/15/19 07:50 Anion Gap 8 MMOL/L (8-16) 08/15/19 07:50 BUN 10.6 mg/dL (7-18) 08/15/19 07:50 Creatinine 1.0 mg/dL (0.55-1.3) 08/15/19 07:50 Est GFR (CKD-EPI)AfAm 111.73 08/15/19 07:50 Est GFR (CKD-EPI)NonAf 96.40 08/15/19 07:50 Random Glucose 112 mg/dL (74-106) H 08/15/19 07:50 Calcium 8.6 mg/dL (8.5-10.1) 08/15/19 07:50 Total Bilirubin 0.5 mg/dL (0.2-1) 08/15/19 07:50 AST 16 U/L (15-37) 08/15/19 07:50 ALT 24 U/L (13-61) 08/15/19 07:50 Alkaline Phosphatase 95 U/L (45-117) 08/15/19 07:50 Total Protein 6.6 g/dl (6.4-8.2) 08/15/19 07:50 Albumin 3.3 g/dl (3.4-5.0) L 08/15/19 07:50 RPR Titer Nonreactive (NONREACTIVE) 08/15/19 07:50 T.pallidum Ab Interpret Cancelled 08/15/19 07:50 lab noted 08/18/19 09:20alert oriented x 3 no acute distress resting on bed Assessment: 08/18/19 09:21 opiate withdrawal 08/18/19 09:22 anxiety Plan: methadone regiment xanax management by the primary care provider
[2019-08-18] MEDS ORDERED: ESCITALOPRAM OXALATE 10 MG TABLET ONE (09:29)
[2019-08-18] MEDS ORDERED: METHADONE HCL 10 MG TABLET (FOR DETOX USE ONLY) PO ONE (10:00)
[2019-08-18] MEDS: diazePAM 5 MG TABLET PO SCH (10:04)
[2019-08-18] MEDS: ESCITALOPRAM OXALATE 20 MG TABLET PO SCH (10:04)
[2019-08-18] MEDS: PRENATAL VITAMINS W/ FOLIC ACID TABLET (FP) PO SCH (10:04)
--- NOTE | 2019-08-18 11:24 | DS ---
[facility] Detox Discharge Summary Admission Date: 08/14/19 Discharge Date: 08/18/19 - History Present History: Opioid Dependence Additional Comments: 34 years old male admitted on 08/14/19 for opiate withdrawal sx managment treated with methadone detox regiment Mr Severino prefers to leave the detox unit one day earlier as estimated discharge day of 08/19/19 alert oriented x 3 speech clearly coherently ambulating steady gait patient prefers return home follow up with xanax provider cardiac [id number] regular rate rhythm respiratory clear lung bilaterally on auscultation extremities full range of motion Pertinent Past History: time for discharge 44 minutes - Physical Exam Results Vital Signs: Vital Signs Temperature 98.1 F 08/18/19 08:30 Pulse Rate 84 08/18/19 08:30 Respiratory Rate 18 08/18/19 08:30 Blood Pressure 119/77 08/18/19 08:30 O2 Sat by Pulse Oximetry (%) Pertinent Admission Physical Exam Findings: opiate withdrawal Vital Signs Temperature 98.1 F 08/18/19 08:30 Pulse Rate 84 08/18/19 08:30 Respiratory Rate 18 08/18/19 08:30 Blood Pressure 119/77 08/18/19 08:30 O2 Sat by Pulse Oximetry (%) Laboratory Last Values WBC 6.3 K/mm3 (4.0-10.0) 08/15/19 07:50 RBC 4.65 M/mm3 (4.00-5.60) 08/15/19 07:50 Hgb 14.0 GM/dL (11.7-16.9) 08/15/19 07:50 Hct 40.5 % (35.4-49) 08/15/19 07:50 MCV 87.1 fl (80-96) 08/15/19 07:50 MCH 30.1 pg (25.7-33.7) 08/15/19 07:50 MCHC 34.5 g/dl (32.0-35.9) 08/15/19 07:50 RDW 13.0 % (11.9-15.9) 08/15/19 07:50 Plt Count 211 K/MM3 (134-434) 08/15/19 07:50 MPV 9.3 fl (7.5-11.1) 08/15/19 07:50 Sodium 140 mmol/L (136-145) 08/15/19 07:50 Potassium 4.1 mmol/L (3.5-5.1) 08/15/19 07:50 Chloride 105 mmol/L (98-107) 08/15/19 07:50 Carbon Dioxide 28 mmol/L (21-32) 08/15/19 07:50 Anion Gap 8 MMOL/L (8-16) 08/15/19 07:50 BUN 10.6 mg/dL (7-18) 08/15/19 07:50 Creatinine 1.0 mg/dL (0.55-1.3) 08/15/19 07:50 Est GFR (CKD-EPI)AfAm 111.73 08/15/19 07:50 Est GFR (CKD-EPI)NonAf 96.40 08/15/19 07:50 Random Glucose 112 mg/dL (74-106) H 08/15/19 07:50 Calcium 8.6 mg/dL (8.5-10.1) 08/15/19 07:50 Total Bilirubin 0.5 mg/dL (0.2-1) 08/15/19 07:50 AST 16 U/L (15-37) 08/15/19 07:50 ALT 24 U/L (13-61) 08/15/19 07:50 Alkaline Phosphatase 95 U/L (45-117) 08/15/19 07:50 Total Protein 6.6 g/dl (6.4-8.2) 08/15/19 07:50 Albumin 3.3 g/dl (3.4-5.0) L 08/15/19 07:50 RPR Titer Nonreactive (NONREACTIVE) 08/15/19 07:50 T.pallidum Ab Interpret Cancelled 08/15/19 07:50 lab noted - Treatment Hospital Course: Detox Protocol Followed, Detoxed Safely, Responded well, Discharged Condition Good, Rehab Referral Accepted Patient has Accepted a Rehab Referral to: [facility] - Medication Discharge Medications: Ambulatory Orders Alprazolam [Xanax] 2 mg PO BID 03/29/19 Escitalopram Oxalate [Lexapro -] 20 mg PO DAILY 03/29/19 Quetiapine Fumarate [Seroquel -] 300 mg PO HS 06/21/19 Zolpidem Tartrate [Ambien] 10 mg PO HS 07/14/19 - Diagnosis (1) Opioid dependence with withdrawal Status: Acute (2) Substance induced mood disorder Status: Suspected (3) Afib Status: Chronic Qualifiers: Atrial fibrillation type: unspecified Qualified Code(s): I48.91 - Unspecified atrial fibrillation - AMA Did Patient Leave Against Medical Advice: No COWS (PN) - Opiate Withdrawal Resting Pulse: 1= TN 81-100 Sweatin= No chills or Flushing Restless Observation: 0= Sits Still Pupil Size: 0= Normal to Room Light Bone or Joint Aches: 1= Mild Discomfort Runny Nose/ Eye Tearin= None GI Upset > 30mins: 1= Stomach Cramp Tremor Observation of Outstretched Hands: 1= Tremor [place], Not Seen Yawning Observation: 0= None Anxiety or Irritability: 0= None Goose Flesh Skin: 0=Smooth Skin COWS Score: 4
[2019-08-19] MEDS ORDERED: METHADONE HCL 5 MG TABLET (FOR DETOX USE ONLY) PO ONE (06:00)
== END 2019-08-18 11:48 | disposition home or self-care (01) | DRG 773 ==
LOC: YASAS 11:26 → Y3N 12:14
PROVIDERS: ADMIT Allergy & Immunology; ATTEND Allergy & Immunology
PROC: HZ2ZZZZ Detoxification Services for Substance Abuse Treatment (ICD-10-PCS; principal; 2019-08-14)
DX: F11.23 Opioid dependence with withdrawal (principal); F17.210 Nicotine dependence, cigarettes, uncomplicated; F41.9 Anxiety disorder, unspecified; F32.9 Major depressive disorder, single episode, unspecified; F19.280 Other psychoactive substance dependence with psychoactive substance-induced anxiety disorder; F19.282 Other psychoactive substance dependence with psychoactive substance-induced sleep disorder; I48.91 Unspecified atrial fibrillation; Z88.8 Allergy status to other drugs, medicaments and biological substances; Z91.5 Personal history of self-harm
CPT/HCPCS: 36415; 80053; 85027; 86593; 93005; 93010; Q0162